=== PATIENT | female | born 1965 | race Caucasian/White ===

== ENCOUNTER → 2016-11-08 | Outpatient (CLI) | payer OTHER ==
[~2016-11-08] MED LIST: ACHD5005 PO; CARV3.12T PO; DIAZ5TAB3 PO; DOCU100T7 PO; ENAL2.5T PO; ENOX40DI8 SC; GADOBUTROL 10 MMOL/10 ML (GADAVIST) VIAL IV ONE; HYDR-3816 PO; HYDR1TAB86 PO; IBUP-1773 PO; MAGN250T7 PO; ONDN4T PO; OXYC-309 PO; SCP1.5TD TD; TAMO20TA2 PO; VENL75CA PO
--- OUTSIDE RECORDS SUMMARY | 2016-11-08 16:39 | XMS REPORT | Continuity of Care Document ---
Author Author [facility] Organization [facility] Address Unknown Phone Unavailable Care Team Providers Care Rfid Developer Name Role Phone Vince Laila PCP [phone] Source Comments Some departments are not documenting in the electronic medical record. 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 08/14/2016 Surgery Aura John MD RECONSTRUCTION [...] Taken Blood Pressure 143/82 09/21/2016 11:50 AM FREIGHT AND PASSENGER AGENT Pulse 96 09/21/2016 11:50 AM FREIGHT AND PASSENGER AGENT Temperature 35.6 C (96 F) 08/27/2016 10:06 AM CDT Respiratory Rate 16 08/27/2016 10:06 AM CDT Height 1.626 m (5' 4") 09/21/2016 11:50 AM FREIGHT AND PASSENGER AGENT Weight 102.059 kg (225 lb) 09/21/2016 11:50 AM FREIGHT AND PASSENGER AGENT Body Mass Index 38.6 09/21/2016 11:50 AM FREIGHT AND PASSENGER AGENT Oxygen Saturation 97% 08/14/2016 5:00 PM CDT Plan of Care Date Type Specialty Providers Description 11/22/2016 Appointment Plastic Surgery Aura John MD [address] [place] [address] [phone] (Fax) 01/29/2017 Appointment Radiology Lincoln Grande MD [address] [place] [address] [phone] (Fax) 01/29/2017 Appointment Oncology Kimber Portillo PA-C [address] [place] [address] [phone] (Fax) Health Maintenance Due Date Last Done [...] AM) Component Value Range PATHOLOGY REPORT [facility] [email or web address] Lucrecia Milner MD, PhD, Director of Anatomic Pathology Department of Pathology and Laboratory Medicine [address] [place] [id number] Surgical Pathology Office: [phone] SURGICAL PATHOLOGY REPORT NAME: PITER TAYLOR SURG PATH #: [id number] MR #: [id number] SPECIMEN CLASS: SR BILLING #: [id number] ALT ID #: LOCATION: [facility] DATE OF [...] discrete lesions or gross abnormalities are identified. Company Dancer sections are submitted in cassette A1 and [...] discrete lesions or gross abnormalities are identified. Company Dancer sections are submitted in cassette B1 and B2. (arl) ar/08/15/2016
--- NOTE | 2016-11-08 17:48 | Diagnostic Imaging Report ---
PROCEDURE: MR imaging of the brain with and without contrast. TECHNIQUE: Multiplanar, multisequence MR imaging of the brain was performed with and without contrast. INDICATION: Headaches COMPARISON: None FINDINGS: There is no restricted diffusion or abnormal enhancement. The jones-white junction appears preserved. The ventricles appear unremarkable. There is no evidence of acute intracranial hemorrhage, mass effect or midline shift. No acute focal intraparenchymal abnormality is seen. There are a few very subtle tiny foci of T2 and FLAIR signal abnormality in the periventricular and subcortical white matter which are nonspecific but are probably related to chronic microvascular ischemic changes. The paranasal sinuses and mastoids are clear as visualized. IMPRESSION: There is no evidence of an acute intracranial abnormality. There are minimal white matter changes which appear chronic and are most likely related to microvascular ischemic disease although they are nonspecific. Dictated by: Dictated on workstation # [id number]
== END ==
LOC: RAD 16:36
PROVIDERS: ATTEND Internal Medicine Hematology & Oncology
DX: R51 Headache (principal); C50.919 Malignant neoplasm of unspecified site of unspecified female breast
CPT/HCPCS: 70553

== ENCOUNTER → 2016-11-15 | Outpatient (CLI) | payer OTHER ==
[~2016-11-15] MED LIST changes: -GADOBUTROL 10 MMOL/10 ML (GADAVIST) VIAL IV ONE
--- OUTSIDE RECORDS SUMMARY | 2016-11-15 11:48 | XMS REPORT | Continuity of Care Document ---
Author Author [facility] Organization [facility] Address Unknown Phone Unavailable Care Team Providers Care Auxiliary Equipment Tender Name Role Phone Vince Laila PCP [phone] Source Comments Some departments are not documenting in the electronic medical record. If you do not see the information that you expected, contact Release of Information in the Health Information Management department at [phone] for further assistance in locating additional records.[facility] Active Allergies and Adverse Reactions No [...] Providers Description 09/21/2016 Office Visit Plastic Surgery Eder Stephen MD Bartolo reconstructed breast (Primary Dx) 08/27/2016 Office Visit Plastic Surgery Eder Stephen MD Bartolo reconstructed breast (Primary Dx); Malignant neoplasm of left female breast, unspecified site of breast (HCC) Immunizations Name Dates Previously Given Next Due Pneumococcal Vaccine 12/06/2015 (23-Kim Adult) Social History Tobacco Use Types Packs/Day Years Used Date Passive Smoke Exposure - Never Smoker Smokeless Tobacco: Never Used Alcohol Use Drinks/Week oz/Week Comments Yes 1 Standard 0.5 rarely drinks or equivalent Last Filed Vital Signs Vital Sign Reading Time Taken Blood Pressure 143/82 09/21/2016 11:50 AM SOLID STATE TESTER Pulse 96 09/21/2016 11:50 AM SOLID STATE TESTER Temperature 35.6 C (96 F) 08/27/2016 10:06 AM CDT Respiratory Rate 16 08/27/2016 10:06 AM CDT Height 1.626 m (5' 4") 09/21/2016 11:50 AM SOLID STATE TESTER Weight 102.059 kg (225 lb) 09/21/2016 11:50 AM SOLID STATE TESTER Body Mass Index 38.6 09/21/2016 11:50 AM SOLID STATE TESTER Oxygen Saturation 97% 08/14/2016 5:00 PM CDT Plan of Care Date Type Specialty Providers Description 11/22/2016 Appointment Plastic Surgery Eder Stephen MD [address] [place] [address] [phone] (Fax) 01/29/2017 Appointment Radiology Lincoln Grande MD [address] [place] [address] [phone] (Fax) 01/29/2017 Appointment Oncology Kimber Portillo PA-C [address] [place] [address] [phone] (Fax) Health Maintenance Due Date Last Done [...] CDT procedure are in the results section. Results from Last 3 Months PROCEDURES-SCAN (08/15/2016 10:54 AM) Narrative Ordered by an unspecified provider.
--- NOTE | 2016-11-15 17:55 | Diagnostic Imaging Report ---
INDICATION: Breast cancer. Whole body bone scan. 27.3 mCi of technetium-99m MDP was given intravenously. Whole body bone scan was obtained after appropriate delay. FINDINGS: There is some increased activity in the left anterior rib cage involving the seventh and eighth ribs at the costochondral junction. This is likely related to trauma. There is slight increased activity in the right patella which is likely degenerative in nature. There is no abnormal uptake seen in the skeleton that is considered suspicious for metastatic disease. IMPRESSION: No evidence for metastatic disease in the skeleton. Left anterior rib activity likely due to trauma. Clinical correlation recommended. Dictated by: Dictated on workstation # [id number]
== END ==
LOC: CARD 11:44
PROVIDERS: ATTEND Internal Medicine Hematology & Oncology
DX: C50.919 Malignant neoplasm of unspecified site of unspecified female breast (principal); M89.8X9 Other specified disorders of bone, unspecified site
CPT/HCPCS: 78306

== ENCOUNTER 2016-11-22 08:51 | Outpatient (RCR) | payer BC, OTHER ==
[2016-11-07 09:20] LABS: BASOPHILS % (AUTO) 0 % (0-10); EOSINOPHILS # (AUTO) 0.2 10^3/uL (0.0-0.3); EOSINOPHILS % (AUTO) 4 % (0-10); LYMPHOCYTES # (AUTO) 1.5 X 10^3 (1.0-4.0); LYMPHOCYTES % (AUTO) 35 % (12-44); MEAN CORPUSCULAR HEMOGLOBIN 29 PG (25-34); MEAN CORPUSCULAR HGB CONC 32 G/DL (32-36); MEAN CORPUSCULAR VOLUME 93 FL (80-99); MEAN PLATELET VOLUME 9.3 FL (7.4-10.4); MONOCYTES # (AUTO) 0.3 X 10^3 (0.0-1.0); MONOCYTES % (AUTO) 7 % (0-12); NEUTROPHILS # (AUTO) 2.4 X 10^3 (1.8-7.8); NEUTROPHILS % (AUTO) 55 % (42-75); PLATELET COUNT 254 10^3/uL (130-400); RED BLOOD COUNT 3.88 10^6/uL (4.35-5.85); RED CELL DISTRIBUTION WIDTH 13.8 % (10.0-14.5); WHITE BLOOD COUNT 4.3 10^3/uL (4.3-11.0)
[2016-11-07 09:51] LABS: ALBUMIN 3.8 G/DL (3.2-4.5); BILIRUBIN,TOTAL 0.3 MG/DL (0.1-1.0); CALCIUM 8.9 MG/DL (8.5-10.1); CREATININE SERUM 1.06 MG/DL (0.60-1.30); POTASSIUM 4.3 MMOL/L (3.6-5.0); TOTAL PROTEIN 6.7 G/DL (6.4-8.2)
--- OUTSIDE RECORDS SUMMARY | 2016-11-07 10:18 | XMS REPORT | Continuity of Care Document ---
Author Author [facility] Organization [facility] Address Unknown Phone Unavailable Care Team Providers Care Biofuels Product Manager Name Role Phone Vince Laila PCP [phone] Source Comments Some departments are not documenting in the electronic medical record. If you do not see the information that you expected, contact Release of Information in the Health Information Management department at [phone] for further assistance in locating additional records.[facility] Active Allergies and Adverse Reactions No Known Allergies Current Medications Prescription Sig. Disp. Refills Start End Date Status Date acetaminophen (TYLENOL) Take 325 mg by mouth Active 325 mg tablet every 4 hours as needed. carvedilol (COREG) 3.125 Take 3.125 mg by mouth Active mg tablet twice daily with meals. enalapril (VASOTEC) 2.5 Take 2.5 mg by mouth at Active mg tablet bedtime daily. venlafaxine XR (EFFEXOR Take 75 mg by mouth at Active XR) 75 mg capsule bedtime daily. letrozole (FEMARA) 2.5 mg Take 2.5 mg by mouth at Active tablet bedtime daily. ondansetron (ZOFRAN) 8 mg Take 8 mg by mouth every Active tablet 8 hours as needed for Nausea. docusate (COLACE) 100 mg Take 100 mg by mouth as Active capsule Needed. senna/docusate Take 1 Tab by mouth twice 14 Tab 0 12/06/19 Active (SENOKOT-S) 8.6/50 mg daily. Indications: 16 tablet CONSTIPATION HYDROcodone/acetaminophen Take 1 Tab by mouth every 30 Tab 0 08/14/20 Active (NORCO) 5-325 mg tablet 4 hours as needed for 16 Pain Active Problems Problem Noted Date Misshapen reconstructed breast 01/29/2016 Morbid obesity (HCC) 12/12/2015 S/P breast reconstruction, bilateral 12/01/2015 Rotator cuff (capsule) sprain 09/28/2014 Breast cancer (HCC) 06/22/2014 Most Recent Encounters Date Type Specialty Providers Description 09/21/2016 Office Visit Plastic Surgery Aura John MD Bartolo reconstructed breast (Primary Dx) 08/27/2016 Office Visit Plastic Surgery Aura John MD Bartolo reconstructed breast (Primary Dx); Malignant neoplasm of left female breast, unspecified site of breast (HCC) 08/14/2016 Anesthesia Leia Licona FLUID JET CUTTER OPERATOR Event 08/14/2016 Surgery Aura John MD RECONSTRUCTION BREAST REVISION TO RIGHT BREAST, EXCISION AND LIPOSUCTION Immunizations Name Dates Previously Given Next Due Pneumococcal Vaccine 12/06/2015 (23-Kim Adult) Social History Tobacco Use Types Packs/Day Years Used Date Passive Smoke Exposure - Never Smoker Smokeless Tobacco: Never Used Alcohol Use Drinks/Week oz/Week Comments Yes 1 Standard 0.5 rarely drinks or equivalent Last Filed Vital Signs Vital Sign Reading Time Taken Blood Pressure 143/82 09/21/2016 11:50 AM SOAP CHIPPER Pulse 96 09/21/2016 11:50 AM SOAP CHIPPER Temperature 35.6 C (96 F) 08/27/2016 10:06 AM CDT Respiratory Rate 16 08/27/2016 10:06 AM CDT Height 1.626 m (5' 4") 09/21/2016 11:50 AM SOAP CHIPPER Weight 102.059 kg (225 lb) 09/21/2016 11:50 AM SOAP CHIPPER Body Mass Index 38.6 09/21/2016 11:50 AM SOAP CHIPPER Oxygen Saturation 97% 08/14/2016 5:00 PM CDT Plan of Care Date Type Specialty Providers Description 11/22/2016 Appointment Plastic Surgery Aura John MD [address] [place] [address] [phone] (Fax) 01/29/2017 Appointment Radiology Lincoln Grande MD [address] [place] [address] [phone] (Fax) 01/29/2017 Appointment Oncology Kimber Portillo PA-C [address] [place] [address] [phone] (Fax) Health Maintenance Due Date Last Done Comments Hepatitis C Screening 1964 Physical (Comprehensive) 1971 Exam Pertussis Vaccine 1975 Tetanus Vaccine 1981 Cervical Cancer Screening 1985 Colorectal Cancer 2014 Screening Influenza Vaccine 07/05/2016 Breast Cancer Screening 01/25/2018 01/26/2016, 01/27/2015 Procedures from Last 3 Months Procedure Name Priority Date/Time Associated Diagnosis Comments PROCEDURES-SCAN 08/15/2016 Results for this 10:54 AM CDT procedure are in the results section. RECONSTRUCTION BREAST 08/14/2016 Breast cancer (HCC) REVISION TO RIGHT BREAST, 1:10 PM CDT EXCISION AND LIPOSUCTION Results from Last 3 Months PROCEDURES-SCAN (08/15/2016 10:54 AM) Narrative Ordered by an unspecified provider. SURGICAL PATHOLOGY (08/14/2016 7:45 AM) Component Value Range PATHOLOGY REPORT [facility] [email or web address] Lucrecia Milner MD, PhD, Director of Anatomic Pathology Department of Pathology and Laboratory Medicine [address] [place] [phone] Surgical Pathology Office: [phone] SURGICAL PATHOLOGY REPORT NAME: PITER TAYLOR SURG PATH #: [id number] MR #: [id number] SPECIMEN CLASS: SR BILLING #: [id number] ALT ID #: LOCATION: [facility] DATE OF PROCEDURE: 08/14/2016 AGE: 50 SEX: F DATE RECEIVED: 08/15/2016 : 1965 TIME RECEIVED: 07:45 PHYSICIAN: AURA JOHN MD DATE OF REPORT: 08/16/2016 COPY TO: DATE OF PRINTIN08/16/2016 ################################################## ###################### Final Diagnosis: A. Skin and subcutaneous tissue, "left breast tissue", revision: Focal mild acute and chronic inflammation. B. Skin and subcutaneous tissue, "right breast tissue", revision: No diagnostic abnormalities. Attestation: By this signature, I attest that I have personally formulated the final interpretation expressed in this report and that the above diagnosis is based upon my examination of the slides and/or other material indicated in this report. +++Electronically Signed Out By+++ dimitrios/08/15/2016 Interpreted by: Galilea Van M.D. 08/16/2016 ################################################## ###################### Material Received: A: left breast tissue B: right breast tissue History: 50-year-old female with a history of breast cancer, now reconstruction. Gross Description: A. Received in formalin labeled with the patient's name and "left breast tissue" is an unoriented elliptical portion of fibrofatty tissue measuring 6.5 x 2.5 x 1.5 cm, surfaced with an unremarkable elliptical portion of matamoros-white skin measuring 6.5 x 2.5 cm. The specimen is sectioned to reveal grossly unremarkable lobulated adipose tissue. No definitive breast tissue, discrete lesions or gross abnormalities are identified. Clicking Machine Operator sections are submitted in cassette A1 and A2. (arl) B. Received in formalin labeled with the patient's name and "right breast tissue" are two unoriented elliptical portion of fibrofatty tissue surfaced with skin measuring 3.5 x 1.7 x 1.5 cm and 5.8 x 2.6 x 1.4 cm. The specimen is sectioned to reveal grossly unremarkable lobulated adipose tissue. No definitive breast tissue, discrete lesions or gross abnormalities are identified. Clicking Machine Operator sections are submitted in cassette B1 and B2. (arl) ar/08/15/2016
== END 2017-02-05 | disposition home or self-care (01) ==
LOC: ONC 08:51
PROVIDERS: ATTEND Internal Medicine Hematology & Oncology
DX: C50.412 Malignant neoplasm of upper-outer quadrant of left female breast (principal); Z17.0 Estrogen receptor positive status [ER+]; Z79.899 Other long term (current) drug therapy
CPT/HCPCS: 36415; 80053; 83615; 85025; 99213

== ENCOUNTER 2016-12-10 07:56 | Outpatient (RCR) | payer OTHER ==
--- OUTSIDE RECORDS SUMMARY | 2016-12-10 08:00 | XMS REPORT | Continuity of Care Document ---
Author Author [facility] Organization [facility] Address Unknown Phone Unavailable Care Team Providers Care Mattress Specialist Name Role Phone Vince Laila PCP [phone] Source Comments Some departments are not documenting in the electronic medical record. If you do not see the information that you expected, contact Release of Information in the Health Information Management department at [phone] for further assistance in locating additional records.[facility] Active Allergies and Adverse Reactions [...] Stephen MD Bartolo reconstructed breast (Primary Dx) Immunizations Name Dates Previously Given Next Due Pneumococcal Vaccine 12/06/2015 (23-Kim Adult) Social History Tobacco Use Types Packs/Day Years Used Date Passive Smoke Exposure - Never Smoker Smokeless Tobacco: Never Used Alcohol Use Drinks/Week oz/Week Comments Yes 1 Standard 0.5 rarely drinks or equivalent Last Filed Vital Signs Vital Sign Reading Time Taken Blood Pressure 143/82 09/21/2016 11:50 AM CAREGIVER ASSISTED LIVING Pulse 96 09/21/2016 11:50 AM CAREGIVER ASSISTED LIVING Temperature 35.6 C (96 F) 08/27/2016 10:06 AM CDT Respiratory Rate 16 08/27/2016 10:06 AM CDT Height 1.626 m (5' 4") 09/21/2016 11:50 AM CAREGIVER ASSISTED LIVING Weight 102.059 kg (225 lb) 09/21/2016 11:50 AM CAREGIVER ASSISTED LIVING Body Mass Index 38.6 09/21/2016 11:50 AM CAREGIVER ASSISTED LIVING Oxygen Saturation 97% 08/14/2016 5:00 PM CDT Plan of Care Date Type Specialty Providers Description 01/29/2017 Appointment Radiology Lincoln Grande MD [address] [place] [address] [phone] (Fax) 01/29/2017 Appointment Oncology Kimber Portillo PA-C [address] [place] [address] [phone] (Fax) Health Maintenance Due Date Last Done Comments Hepatitis C Screening 1964 Physical (Comprehensive) 1971 Exam Pertussis Vaccine 1975 Tetanus Vaccine 1981 Cervical Cancer Screening 1985 Colorectal Cancer 2014 Screening Influenza Vaccine 07/05/2016 Breast Cancer Screening 01/25/2018 01/26/2016, 01/27/2015 Results from Last 3 Months Not on file
== END 2017-03-10 | disposition home or self-care (01) ==
LOC: CARD 07:56
PROVIDERS: ATTEND Physician Assistant
DX: I25.10 Atherosclerotic heart disease of native coronary artery without angina pectoris (principal); I50.22 Chronic systolic (congestive) heart failure; E78.2 Mixed hyperlipidemia; K21.9 Gastro-esophageal reflux disease without esophagitis
CPT/HCPCS: 93225; 93226

== ENCOUNTER → 2016-12-12 | Outpatient (CLI) | payer OTHER ==
--- OUTSIDE RECORDS SUMMARY | 2016-12-12 08:50 | XMS REPORT | Continuity of Care Document ---
Author Author [facility] Organization [facility] Address Unknown Phone Unavailable Care Team Providers Care Donor Relations Manager Name Role Phone Vince Laila PCP [phone] Source Comments Some departments are not documenting in the electronic medical record. If you do not see the information that you expected, contact Release of Information in the Health Information Management department at [phone] for further assistance in locating additional records.[facility] Active Allergies and Adverse Reactions [...] Taken Blood Pressure 143/82 09/21/2016 11:50 AM STOCK ORDER LISTER Pulse 96 09/21/2016 11:50 AM STOCK ORDER LISTER Temperature 35.6 C (96 F) 08/27/2016 10:06 AM CDT Respiratory Rate 16 08/27/2016 10:06 AM CDT Height 1.626 m (5' 4") 09/21/2016 11:50 AM STOCK ORDER LISTER Weight 102.059 kg (225 lb) 09/21/2016 11:50 AM STOCK ORDER LISTER Body Mass Index 38.6 09/21/2016 11:50 AM STOCK ORDER LISTER Oxygen Saturation 97% 08/14/2016 5:00 PM CDT Plan of Care Date Type Specialty Providers Description 01/29/2017 Appointment Radiology Lincoln Grande MD [address] [place] [address] [phone] (Fax) 01/29/2017 Appointment Oncology Kimber Portillo PA-C [address] [place] [address] [phone] (Fax) Health Maintenance Due Date Last Done Comments Hepatitis C Screening 1964 Physical (Comprehensive) 1971 Exam Pertussis Vaccine 1975 Tetanus Vaccine 1981 Cervical Cancer Screening 1985 Colorectal Cancer 2014 Screening Influenza Vaccine 07/05/2016 Breast Cancer Screening 01/25/2018 01/26/2016, 01/27/2015 Results from Last 3 Months Not on file
--- NOTE | 2016-12-13 09:06 | ECHOCARDIOGRAPHY REPORT ---
PROCEDURE PHYSICIAN: ADILENE PANDYA DATE OF PROCEDURE: 12/12/2016 TWO DIMENSIONAL ECHOCARDIOGRAM REPORT PRIMARY PHYSICIAN: OTHER PHYSICIAN: REFERRING PHYSICIAN: Dr. Laila Clarke ORDERING PHYSICIAN: INDICATION FOR THE PROCEDURE: 1. Congestive heart failure. 2. Coronary artery disease. MEASUREMENTS DERIVED VALUES LV DIAMETER (LAX) NORMALS NORMALS Diastolic 3.9 (3.6-5.2) Eject. Fract. 40% (60%+/-6%) Systolic (2.3-3.9) Diastolic Vol. % Shortening (0.22-0.42) Systolic Vol. Aortic Root IVS THICKNESS Diastolic 1 (0.6-1.1) LVPW THICKNESS Diastolic 1 (0.6-1.1) LA DIAMETER Systolic 3 (2.1-3.7) FINDINGS: 1. Technically difficult study. 2. The left ventricle is normal in size. Endocardium was not well visualized in all segments. Questionable diffuse left ventricular hypokinesia. Systolic function is reduced. Estimated ejection fraction 40%. Diastolic dysfunction is suggested by Doppler. 3. The left atrium is normal in size. No clot or thrombus were seen within the left atrium. 4. The right atrium and right ventricle were not well visualized. 5. Mitral valve leaflets were not well visualized. There is mild mitral regurgitation noted by color Doppler flow. No mitral valve prolapse. No mitral valve stenosis. 6. Aortic valve leaflets were not visualized. No significant aortic stenosis or regurgitation was seen. 7. Tricuspid valve is normal in morphology with mild tricuspid regurgitation noted by color Doppler flow. Doppler across tricuspid valve estimated pulmonary artery pressure of 10+ right atrial pressure. 8. Pulmonic valve is functioning normally. 9. No pericardial effusion. IN CONCLUSION: 1. Technically difficult study. 2. Normal left ventricular size. Endocardium was not well visualized. Overall systolic function is reduced. Estimated ejection fraction 40%. Diastolic dysfunction is suggested by Doppler. 3. Mild mitral and tricuspid regurgitation. 4. Estimated pulmonary artery pressure of 15 to 20 mmHg. Job ID: [id number] Dictated Date: 12/12/2016 16:50:15 Food Service Tray Attendant Date: 12/13/2016 09:03:19 / jaguar
== END ==
LOC: CARD 08:46
PROVIDERS: ATTEND Physician Assistant
DX: I25.10 Atherosclerotic heart disease of native coronary artery without angina pectoris (principal); I50.22 Chronic systolic (congestive) heart failure; E78.2 Mixed hyperlipidemia; K21.9 Gastro-esophageal reflux disease without esophagitis
CPT/HCPCS: 93017; 93306

== ENCOUNTER 2017-12-27 13:30 | Outpatient (RCR) | payer OTHER ==
[~2017-12-27 13:30] MED LIST changes: +HYDR-34 PO; -HYDR-3816 PO
[2017-12-27 13:49] LABS: BASOPHILS % (AUTO) 0 % (0-10); EOSINOPHILS # (AUTO) 0.2 10^3/uL (0.0-0.3); EOSINOPHILS % (AUTO) 3 % (0-10); HEMATOCRIT 39 % (35-52); HEMOGLOBIN 12.6 G/DL (11.5-16.0); LYMPHOCYTES # (AUTO) 1.9 X 10^3 (1.0-4.0); LYMPHOCYTES % (AUTO) 24 % (12-44); MEAN CORPUSCULAR HEMOGLOBIN 30 PG (25-34); MEAN CORPUSCULAR HGB CONC 32 G/DL (32-36); MEAN CORPUSCULAR VOLUME 93 FL (80-99); MEAN PLATELET VOLUME 9.4 FL (7.4-10.4); MONOCYTES # (AUTO) 0.4 X 10^3 (0.0-1.0); MONOCYTES % (AUTO) 4 % (0-12); NEUTROPHILS # (AUTO) 5.4 X 10^3 (1.8-7.8); NEUTROPHILS % (AUTO) 68 % (42-75); PLATELET COUNT 283 10^3/uL (130-400); RED BLOOD COUNT 4.25 10^6/uL (4.35-5.85); RED CELL DISTRIBUTION WIDTH 13.8 % (10.0-14.5)
[2017-12-27 14:09] LABS: ALANINE AMINOTRANSFERASE 9 U/L (0-55); ALKALINE PHOSPHATASE 140 U/L (40-136); BILIRUBIN,TOTAL 0.3 MG/DL (0.1-1.0); BUN/CREATININE RATIO 13; CALCIUM 9.7 MG/DL (8.5-10.1); CARBON DIOXIDE 28 MMOL/L (21-32); CHLORIDE 105 MMOL/L (98-107); CREATININE SERUM 0.92 MG/DL (0.60-1.30); GFR ESTIMATED > 60; GLUCOSE 87 MG/DL (70-105); SODIUM 141 MMOL/L (135-145); TOTAL PROTEIN 7.3 GM/DL (6.4-8.2)
== END 2018-03-27 16:35 | disposition home or self-care (01) ==
LOC: ONC 13:30
PROVIDERS: ATTEND Internal Medicine Hematology & Oncology
DX: C50.412 Malignant neoplasm of upper-outer quadrant of left female breast (principal); C77.3 Secondary and unspecified malignant neoplasm of axilla and upper limb lymph nodes; D72.819 Decreased white blood cell count, unspecified; I50.89 Other heart failure; T45.1X5A Adverse effect of antineoplastic and immunosuppressive drugs, initial encounter; M19.012 Primary osteoarthritis, left shoulder; M25.552 Pain in left hip; R51 Headache; R53.83 Other fatigue; R11.2 Nausea with vomiting, unspecified; E66.01 Morbid (severe) obesity due to excess calories; Z68.41 Body mass index [BMI] 40.0-44.9, adult; Z17.0 Estrogen receptor positive status [ER+]; Z79.899 Other long term (current) drug therapy; Z79.811 Long term (current) use of aromatase inhibitors; Z90.11 Acquired absence of right breast and nipple; Z90.13 Acquired absence of bilateral breasts and nipples; Z92.21 Personal history of antineoplastic chemotherapy; Z92.3 Personal history of irradiation
CPT/HCPCS: 36415; 80053; 85025; 99213

== ENCOUNTER → 2018-01-16 | Outpatient (CLI) | payer OTHER ==
--- NOTE | 2018-01-16 12:54 | Diagnostic Imaging Report ---
Procedure: DEXA scan Comparison: There are no prior studies available for comparison. Findings: The bone mineral density of the hips and spine was measured. The T score for the spine and for the left hip is -1.9. The T score for the right hip is -2.2. All of these values fall within the range of osteopenia. Impression: There is osteopenia of the hips and spine. Dictated by: Dictated on workstation # [id number]
== END ==
LOC: RAD 11:12
PROVIDERS: ATTEND Internal Medicine Hematology & Oncology
DX: C50.412 Malignant neoplasm of upper-outer quadrant of left female breast (principal); M85.88 Other specified disorders of bone density and structure, other site
CPT/HCPCS: 77080

== ENCOUNTER 2018-04-03 16:36 | Observation (INO) | payer OTHER ==
[~2018-04-03] VITALS: Ht 162.6 cm; Wt 109.1 kg
[2018-04-03] MEDS ORDERED: ASPIRIN 81 MG CHEW (CHILDREN'S ASA) PO ONE (16:45)
--- NOTE | 2018-04-03 16:46 | ED Chest Pain ---
General Stated Complaint: CHEST HEAVINESS/SOB/HEADACHE Source: patient Exam Limitations: no limitations History of Present Illness Date Seen by Provider: April 03, 2018 Time Seen by Provider: 16:45 Initial Comments to ERper private vehicle from home with reports of central chest heaviness. This has been constant since Saturday 03/24. However she's had intermittent palpitations and nausea with this. She reports a history of congestive heart failure that occurred with chemotherapy for treatment of breast cancer She does follow with Dr. Crump. Primary care is Dr. Scott. Timing/Duration: constant Severity/Quality: moderate, other ("heaviness") Location: central Radiation: no radiation Activities at Onset: none Prior CP/Workup: cardiac cath ASA po BARREL FINISHER: No NTG SL BARREL FINISHER: No Associated Symptoms: nausea/vomiting Allergies and Home Medications Allergies Coded Allergies: codeine (Verified Allergy, Mild, UPSET STOMACH, 08/12/15) Home Medications Carvedilol 3.125 Mg Tablet, 3.125 MG PO BID, (Reported) Docusate Sodium 100 Mg Tablet, 200 MG PO DAILY PRN for CONSTIPATION, (Reported) Enalapril Maleate 2.5 Mg Tablet, 2.5 MG PO HS, (Reported) Enoxaparin Sodium 40 Mg/0.4 Ml Syringe, 40 MG SC DAILY@06 Prescribed by: NACHO HARRIS on 08/18/15 1201 Hydrocodone Bit/Acetaminophen 1 Each Tablet, 1-2 EA PO Q6H PRN for PAIN Prescribed by: NACHO HARRIS on 08/18/15 1201 Ibuprofen 600 Mg Tablet, 600 MG PO Q6H PRN for PAIN Prescribed by: NACHO HARRIS on 08/18/15 1201 Ondansetron HCl 4 Mg Tab, 4 MG PO PRN, (Reported) Tamoxifen Citrate 20 Mg Tablet, 20 MG PO DAILY, (Reported) Venlafaxine HCl 75 Mg Cap.er.24h, 75 MG PO DAILY, (Reported) Patient Home Medication List Home Medication List Reviewed: Yes Review of Systems Constitutional: see HPI EENTM: No Symptoms Reported Respiratory: No Symptoms Reported Cardiovascular: See HPI, Chest Pain, Palpitations Gastrointestinal: See HPI Genitourinary: No Symptoms Reported Musculoskeletal: no symptoms reported Skin: no symptoms reported Psychiatric/Neurological: No Symptoms Reported Endocrine: No Symptoms Reported Hematologic/Lymphatic: No Symptoms Reported Past Vzpdtqt-Vdguoy-Cgzukq Hx Patient Social History Recent Foreign Travel: No Contact w/Someone Who Travel: No Past Medical History Reproductive Disorders: No Female Reproductive Disorders: Denies Sexually Transmitted Disease: No HIV/AIDS: No Loss of Vision: Bilateral Hearing Impairment: Denies Breast Depression Adverse Reaction/Blood Tranf: No Physical Exam Vital Signs Vital Signs - First Documented 04/03/18 16:38 Temp 98.0 Pulse 76 Resp 18 B/P (MAP) 151/86 (107) Pulse Ox 99 Capillary Refill : General Appearance: No Apparent Distress, WD/WN HEENT: PERRL/EOMI, TMs Normal Neck: Full Range of Motion, Normal Inspection Respiratory: No Accessory Muscle Use, No Respiratory Distress Cardiovascular: Regular Rate, Rhythm, Normal Peripheral Pulses Gastrointestinal: Normal Bowel Sounds, Non Tender, Soft Extremity: Normal Capillary Refill, Normal Inspection Neurologic/Psychiatric: Alert, Oriented x3 Skin: Normal Color, Warm/Dry Progress/Results/Core Measures Results/Orders Lab Results Laboratory Tests Test 04/03/18 16:49 Range/Units White Blood Count 5.5 4.3-11.0 10^3/uL Red Blood Count 4.22 L 4.35-5.85 10^6/uL Hemoglobin 12.8 11.5-16.0 G/DL Hematocrit 38 35-52 % Mean Corpuscular Volume 91 80-99 FL Mean Corpuscular Hemoglobin 30 25-34 PG Mean Corpuscular Hemoglobin Concent 34 32-36 G/DL Red Cell Distribution Width 14.3 10.0-14.5 % Platelet Count 266 130-400 10^3/uL Mean Platelet Volume 9.8 7.4-10.4 FL Neutrophils (%) (Auto) 57 42-75 % Lymphocytes (%) (Auto) 36 12-44 % Monocytes (%) (Auto) 6 0-12 % Eosinophils (%) (Auto) 2 0-10 % Basophils (%) (Auto) 0 0-10 % Neutrophils # (Auto) 3.1 1.8-7.8 X 10^3 Lymphocytes # (Auto) 2.0 1.0-4.0 X 10^3 Monocytes # (Auto) 0.3 0.0-1.0 X 10^3 Eosinophils # (Auto) 0.1 0.0-0.3 10^3/uL Basophils # (Auto) 0.0 0.0-0.1 10^3/uL Prothrombin Time 12.8 12.2-14.7 SEC INR Comment 1.0 0.8-1.4 Activated Partial Thromboplast Time 26 24-35 SEC D-Dimer 0.49 0.00-0.49 UG/ML Sodium Level 138 135-145 MMOL/L Potassium Level 3.8 3.6-5.0 MMOL/L Chloride Level 106 98-107 MMOL/L Carbon Dioxide Level 22 21-32 MMOL/L Anion Gap 10 5-14 MMOL/L Blood Urea Nitrogen 10 7-18 MG/DL Creatinine 0.84 0.60-1.30 MG/DL Estimat Glomerular Filtration Rate > 60 BUN/Creatinine Ratio 12 Glucose Level 89 70-105 MG/DL Calcium Level 9.3 8.5-10.1 MG/DL Magnesium Level 2.0 1.8-2.4 MG/DL Total Bilirubin 0.3 0.1-1.0 MG/DL Aspartate Amino Transf (AST/SGOT) 16 5-34 U/L Alanine Aminotransferase (ALT/SGPT) 13 0-55 U/L Alkaline Phosphatase 112 40-136 U/L Myoglobin 30.1 10.0-92.0 NG/ML Troponin I < 0.30 <0.30 NG/ML B-Type Natriuretic Peptide 81.3 <100.0 PG/ML Total Protein 7.5 6.4-8.2 GM/DL Albumin 4.2 3.2-4.5 GM/DL My Orders Orders - ANGELA BRANTLEY [employer]ACTITIONER Cbc With Automated Diff (04/03/18 16:43) Magnesium (04/03/18 16:43) Chest 1 View, Ap/Pa Only (04/03/18 16:43) Cardiac Profile 1 (04/03/18 16:43) Comprehensive Metabolic Panel (04/03/18 16:43) Myoglobin Serum (04/03/18 16:43) Protime With Inr (04/03/18 16:43) Partial Thromboplastin Time (04/03/18 16:43) O2 (04/03/18 16:43) Monitor-Rhythm Ecg Trace Only (04/03/18 16:43) Lipid Panel (04/04/18 06:00) Aspirin Chewable Tablet (Baby Aspirin Ch (04/03/18 16:45) Nitroglycerin 0.4 Mg Btl 25's (Nitrostat (04/03/18 16:45) Saline Lock/Iv-Start (04/03/18 16:43) BNP (04/03/18 16:43) Fibrin Degradation Products (04/03/18 16:43) Ekg Tracing (04/03/18 17:50) Medications Given in ED Current Medications Medications Dose Ordered Sig/Becca Route Start Time Stop Time Status Last Admin Dose Admin Aspirin 324 mg ONCE ONCE PO 04/03/18 16:45 04/03/18 16:46 DC 04/03/18 17:03 324 MG Nitroglycerin 0.4 mg UD PRN SL 04/03/18 16:45 04/03/18 17:22 DC 04/03/18 17:22 0.4 MG Vital Signs/I&O 04/03/18 16:38 Temp 98.0 Pulse 76 Resp 18 B/P (MAP) 151/86 (107) Pulse Ox 99 Diagnostic Imaging Diagonstic Imaging: Xray Plain Films/CT/US/NM/MRI: chest Comments NAME: VASYL SCHAFER [facility] REC#: [id number] PT STATUS: REG ER : 1965 PHYSICIAN: ANGELA BRANTLEY APRN ADMIT DATE: 04/03/18/ER Draft Date of Exam:04/03/18 CHEST 1 VIEW, AP/PA ONLY Portable erect AP chest at 4:58 p.m. INDICATION: Chest tightness. FINDINGS: The heart size is within normal limits and stable when compared to 01/24/16. The lungs are clear. There is no sign of failure, pneumonia or pleural effusion to suggest an acute abnormality. The mediastinum is not widened. The osseous structures are intact. As noted on the prior exam, there are numerous surgical clips overlying each side of the thorax. IMPRESSION: There is no evidence for an acute cardiopulmonary abnormality. Dictated on workstation # [id number] Dict: 04/03/18 1703 Trans: 04/03/18 1707 MARTI [id number] Interpreted by: LESLIE EDMOND MD Electronically signed by: Departure Communication (Admissions) Time/Spoke to Admitting Phy: 18:[address] Crump.he would recommend admission and further observation. I spoke with Dr. Cotton, she agrees to admit, Dr. Crump will consult. 750-she has received 3 sublingual nitroglycerin. The first tube did seem to help alleviate the pressure and the thirdook it away completely. She states that the pressure is still there but it is intermittent at this time. This very moment she does not have any chest pressure. Our repeat an EKG until Dr. Crump. Impression Primary Impression: Chest pain Disposition: ADMITTED INPATIENT Condition: Stable Admissions Decision to Admit Reason: Admit from ER (General) Decision to Admit/Date: April 03, 2018 Time/Decision to Admit Time: 18:15 Departure-Patient Inst. Referrals: TOMMY SCOTT MD (PCP/Family) Primary Care Physician ANGELA BRANTLEY APRN April 03, 2018 16:46
[2018-04-03 16:55] LABS: BASOPHILS % (AUTO) 0 % (0-10); EOSINOPHILS # (AUTO) 0.1 10^3/uL (0.0-0.3); EOSINOPHILS % (AUTO) 2 % (0-10); HEMATOCRIT 38 % (35-52); HEMOGLOBIN 12.8 G/DL (11.5-16.0); LYMPHOCYTES % (AUTO) 36 % (12-44); MEAN CORPUSCULAR HEMOGLOBIN 30 PG (25-34); MEAN CORPUSCULAR HGB CONC 34 G/DL (32-36); MEAN CORPUSCULAR VOLUME 91 FL (80-99); MEAN PLATELET VOLUME 9.8 FL (7.4-10.4); MONOCYTES # (AUTO) 0.3 X 10^3 (0.0-1.0); MONOCYTES % (AUTO) 6 % (0-12); NEUTROPHILS # (AUTO) 3.1 X 10^3 (1.8-7.8); NEUTROPHILS % (AUTO) 57 % (42-75); PLATELET COUNT 266 10^3/uL (130-400); RED BLOOD COUNT 4.22 10^6/uL (4.35-5.85); RED CELL DISTRIBUTION WIDTH 14.3 % (10.0-14.5); WHITE BLOOD COUNT 5.5 10^3/uL (4.3-11.0)
[2018-04-03] MEDS: NITROGLYCERIN 0.4 MG SL TABS BTL 25'S SL PRN ×3 (17:04→17:22)
[2018-04-03 17:06] LABS: PROTHROMBIN TIME PATIENT 12.8 SEC (12.2-14.7)
--- NOTE | 2018-04-03 17:08 | Diagnostic Imaging Report ---
Portable erect AP chest at 4:58 p.m. INDICATION: Chest tightness. FINDINGS: The heart size is within normal limits and stable when compared to 01/24/16. The lungs are clear. There is no sign of failure, pneumonia or pleural effusion to suggest an acute abnormality. The mediastinum is not widened. The osseous structures are intact. As noted on the prior exam, there are numerous surgical clips overlying each side of the thorax. IMPRESSION: There is no evidence for an acute cardiopulmonary abnormality. Dictated by: Dictated on workstation # [id number]
[2018-04-03 17:13] LABS: ALANINE AMINOTRANSFERASE 13 U/L (0-55); ALBUMIN 4.2 GM/DL (3.2-4.5); ALKALINE PHOSPHATASE 112 U/L (40-136); BILIRUBIN,TOTAL 0.3 MG/DL (0.1-1.0); BUN/CREATININE RATIO 12; CALCIUM 9.3 MG/DL (8.5-10.1); CARBON DIOXIDE 22 MMOL/L (21-32); CHLORIDE 106 MMOL/L (98-107); CREATININE SERUM 0.84 MG/DL (0.60-1.30); GFR ESTIMATED > 60; GLUCOSE 89 MG/DL (70-105); POTASSIUM 3.8 MMOL/L (3.6-5.0); SODIUM 138 MMOL/L (135-145); TOTAL PROTEIN 7.5 GM/DL (6.4-8.2)
[2018-04-03 17:19] LABS: MYOGLOBIN SERUM 30.1 NG/ML (10.0-92.0)
--- OUTSIDE RECORDS SUMMARY | 2018-04-03 18:48 | XMS REPORT | Clinical Summary ---
Author Author [facility] Organization [facility] Address Unknown Phone Unavailable Care Team Providers Care Smocker Name Role Phone Lincoln Grande MD Unavailable Laila Clarke MD PCP Will Huerta MD Unavailable Rosie Beltran RN Unavailable Unavailable Dayana Gannon RN Unavailable Unavailable Anabel Phoenix RN Unavailable Unavailable Kimber Portillo PA-C Unavailable Eder Stephen MD Unavailable Mary Morillo RN Unavailable Unavailable Nicol Mejia RN Unavailable Unavailable Sandhya Rodriguez MD Unavailable Lexus Hamilton RN Unavailable Unavailable Melia Patino RN Unavailable Source Comments Some departments are not documenting in the electronic medical record. If you do not see the information that you expected, contact Release of Information in the Health Information Management department at [phone] for further assistance in locating additional records.[facility] Allergies No Known Allergies Current Medications Prescription Sig. [...] Active (SENOKOT-S) 8.6/50 mg daily. 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 Morbid obesity (HCC) 12/12/2015 S/P breast reconstruction, bilateral 12/01/2015 Rotator cuff (capsule) sprain 09/28/2014 Breast cancer (HCC) 06/22/2014 Immunizations Name Dates Previously Given Next Due Pneumococcal Vaccine 12/06/2015 (23-Kim Adult) Family History Medical History Relation Name Comments Cancer Brother Cancer-Lung Father Arthritis-rheumatoid Maternal Grandfather Arthritis-osteo Mother Cancer-Breast Mother Cancer-Thyroid Mother Hypertension Mother Cancer-Lung Paternal Aunt Cancer Paternal Grandfather Relation Name Status Comments Brother Father Maternal Grandfather Maternal Grandmother Mother Paternal Aunt Paternal Grandfather Social History Tobacco Use Types Packs/Day Years Used Date Passive Smoke Exposure - Never Smoker Smokeless Tobacco: Never Used Alcohol Use Drinks/Week oz/Week Comments Yes 1 Standard 0.5 rarely drinks or equivalent Sex Assigned at Date Recorded Not on file Last Filed Vital Signs Vital Sign Reading Time Taken Blood Pressure 115/67 01/29/2017 9:43 AM CDT Pulse 71 01/29/2017 9:43 AM CDT Temperature 36.7 C (98.1 F) 01/29/2017 9:43 AM CDT Respiratory Rate 18 01/29/2017 9:43 AM CDT Oxygen Saturation 99% 01/29/2017 9:43 AM CDT Inhaled Oxygen - - Concentration Weight 105.7 kg (233 lb) 01/29/2017 9:43 AM CDT Height 162.6 cm (5' 4") 01/29/2017 9:43 AM CDT Body Mass Index 39.99 01/29/2017 9:43 AM CDT Plan of Treatment Health Maintenance Due Date Last Done Comments HEPATITIS C SCREENING 1965 PHYSICAL (COMPREHENSIVE) 1971 EXAM PERTUSSIS VACCINE 1975 HIV SCREENING 1979 TETANUS VACCINE 1981 CERVICAL CANCER SCREENING 1994 COLORECTAL CANCER 2014 SCREENING BREAST CANCER SCREENING 01/29/2018 01/29/2017, 01/26/2016, 01/27/2015 INFLUENZA VACCINE 08/04/2018 Results Not on filefrom Last 3 Months
--- OUTSIDE RECORDS SUMMARY | 2018-04-03 18:52 | XMS REPORT | Continuity of Care Document ---
Author Author [facility] Organization [facility] Address Unknown Phone Unavailable Allergies Active Description Code Type Severity Reaction Onset Reported/Identified Relationship to Patient Clinical Status Yes No Known Drug Allergies [id number] Drug Allergy Unknown N/A 01/11/2014 Yes codeine [id number] Drug Allergy Mild UPSET STOMACH 08/12/2015 Medications There is no data. 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 01/13/2014 JACK DÍAZ MD Ot 174.9 MALIGN NEOPL BREAST NOS 01/13/2014 JACK DÍAZ MD Ot V74.8 SCREEN-BACTERIAL DIS NEC 04/04/2014 ARNULFO RADER MD Ot 174.9 MALIGN NEOPL BREAST NOS 04/04/2014 ARNULFO RADER MD Ot V58.11 ENCOUNTER FOR ANTINEOPLASTIC CHEMOTHERAP 07/06/2014 ARNULFO RADER MD Ot 174.9 MALIGN NEOPL BREAST NOS 07/06/2014 ARNULFO RADER MD Ot V58.11 ENCOUNTER FOR ANTINEOPLASTIC CHEMOTHERAP 07/06/2014 ARNULFO RADER MD Ot V58.69 OTH MED,LT,CURRENT USE 07/06/2014 ARNULFO RADER MD Ot V86.0 ESTROGEN RECEPTOR POSITIVE STATUS [ER+] 09/17/2014 ARNULFO RADER MD Ot 174.9 09/17/2014 ARNULFO RADER MD Ot 174.9 09/17/2014 ARNULFO RADER MD Ot V58.69 09/17/2014 JACK DÍAZ MD Ot 174.9 09/17/2014 JACK DÍAZ MD Ot V72.84 09/17/2014 JACK DÍAZ MD Ot V74.8 09/17/2014 PENASTEPHANIE Negrete CABINETMAKER APPRENTICE Ot 174.9 09/17/2014 PENASTEPHANIE Negrete CABINETMAKER APPRENTICE Ot V58.69 09/17/2014 STEPHANIE PENA CABINETMAKER APPRENTICE Ot 174.9 09/17/2014 STEPHANIE PENA CABINETMAKER APPRENTICE Ot V58.69 09/17/2014 PENASTEPHANIE Negrete CABINETMAKER APPRENTICE Ot V86.0 09/17/2014 PRASANTH JARAMILLO, ARNULFO Prashant Ot 174.9 09/17/2014 PRASANTH JARAMILLO, ARNULFO Cerda Ot V58.69 09/17/2014 PRASANTH JARAMILLO, ARNULFO Cerda Ot 174.9 09/17/2014 PRASANTH JARAMILLO, ARNULFO Cerda Ot V58.69 09/17/2014 PRASANTH JARAMILLO, ARNULFO Prashant Ot V58.83 09/17/2014 PRASANTH JARAMILLO, ARNULFO Prashant Ot V87.41 09/17/2014 PRASANTH JARAMILLO, ARNULFO Prashant Ot 174.9 09/17/2014 PRASANTH JARAMILLO, ARNULFO Prashant Ot V58.69 09/17/2014 PRASANTH JARAMILLO, ARNULFO Prashant Ot V58.83 09/17/2014 PRASANTH JARAMILLO, ARNULFO Prashant Ot V67.2 09/17/2014 PRASANTH JARAMILLO, ARNULFO Cerda Ot 174.9 09/17/2014 PRASANTH JARAMILLO, ARNULFO Cerda Ot V67.2 09/17/2014 PRASANTH JARAMILLO, ARNULFO Prashant Ot 174.9 09/17/2014 PRASANTH JARAMILLO, ARNULFO Cerda Ot V58.69 09/17/2014 PRASANTH JARAMILLO, ARNULFO Cerda Ot V86.0 09/17/2014 PRASANTH JARAMILLO, ARNULFO Prashant Ot 174.9 09/17/2014 PRASANTH JARAMILLO, ARNULFO Prashant Ot V58.69 09/17/2014 PRASANTH JARAMILLO, ARNULFO Cerda Ot V58.83 09/17/2014 PRASANTH JARAMILLO, ARNULFO Prashant Ot V87.41 09/17/2014 ADILENE PANDYA MD Ot 174.9 09/17/2014 MUMTAZ JARAMILLO, ADILENE Liu Ot 397.0 09/17/2014 ADILENE PANDYA MD Ot 424.0 09/17/2014 ADILENE PANDYA MD Ot 425.4 09/17/2014 ADILENE PANDYA MD Ot 428.0 09/17/2014 ADILENE PANDYA MD Ot 782.3 09/17/2014 ADILENE PANDYA MD Ot 174.9 09/17/2014 ADILENE PANDYA MD Ot 425.4 09/17/2014 ADILENE PANDYA MD Ot 428.0 09/17/2014 ADILENE PANDYA MD Ot 782.3 09/17/2014 ADILENE PANDYA MD Ot 174.9 MALIGN NEOPL BREAST NOS 09/17/2014 ADILENE PANDYA MD Ot 272.4 HYPERLIPIDEMIA NEC/NOS 09/17/2014 ADILENE PANDYA MD Ot 401.9 HYPERTENSION NOS 09/17/2014 ADILENE PANDYA MD Ot 414.01 CORONARY ATHEROSCLEROSIS OF AMBLER CORON 09/17/2014 ADILENE PANDYA MD Ot 425.4 PRIM CARDIOMYOPATHY NEC 09/17/2014 ADILENE PANDYA MD Ot 428.0 CONGESTIVE HEART FAILURE NOS 09/17/2014 ADILENE PANDYA MD Ot 786.50 CHEST PAIN NOS 09/17/2014 ADILENE PANDYA MD Ot 794.30 ABN CARDIOVASC STUDY NOS 09/17/2014 ADILENE PANDYA MD Ot V58.69 OT MED,LT,CURRENT USE 09/17/2014 ADILENE PANDYA MD Ot V87.41 PERSONAL HISTORY OF ANTINEOPLASTIC CHEMO 10/04/2014 ARNULFO RADER MD Ot 174.9 10/04/2014 PRASANTH JARAMILLO, ARNULFO Cerda Ot 174.9 10/04/2014 ARNULFO RADER MD Ot V58.69 10/04/2014 BRE JARAMILLO, JACK S Ot 174.9 10/04/2014 BRE JARAMILLO, JACK S Ot V72.84 10/04/2014 BRE JARAMILLO, JACK S Ot V74.8 10/04/2014 STEPHANIE PENA CABINETMAKER APPRENTICE Ot 174.9 10/04/2014 STEPHANIE PENA CABINETMAKER APPRENTICE Ot V58.69 10/04/2014 STEPHANIE PENA CABINETMAKER APPRENTICE Ot 174.9 10/04/2014 STEPHANIE PENA CABINETMAKER APPRENTICE Ot V58.69 10/04/2014 STEPHANIE PENA CABINETMAKER APPRENTICE Ot V86.0 10/04/2014 PRASANTH JARAMILLO, ARNULFO Cerda Ot 174.9 10/04/2014 ARNULFO RADER MD Ot V58.69 10/04/2014 PRASANTH JARAMILLO, ARNULFO Cerda Ot 174.9 10/04/2014 ARNULFO RADER MD Ot V58.69 10/04/2014 ARNULFO RADER MD Ot V58.83 10/04/2014 PRASANTH JARAMILLO, ARNULFO Cerda Ot V87.41 10/04/2014 PRASANTH JARAMILLO, ARNULFO Cerda Ot 174.9 10/04/2014 PRASANTH JARAMILLO, ARNULFO Cerda Ot V58.69 10/04/2014 PRASANTH JARAMILLO, ARNULFO Cerda Ot V58.83 10/04/2014 PRASANTH JARAMILLO, ARNULFO Cerda Ot V67.2 10/04/2014 PRASANTH JARAMILLO, ARNULFO Cerda Ot 174.9 10/04/2014 PRASANTH JARAMILLO, ARNULFO Cerda Ot V67.2 10/04/2014 PRASANTH JARAMILLO, ARNULFO Cerda Ot 174.9 10/04/2014 PRASANTH JARAMILLO, ARNULFO Cerda Ot V58.69 10/04/2014 PRASANTH JARAMILLO, ARNULFO Cerda Ot V86.0 10/04/2014 PRASANTH JARAMILLO, ARNULFO Cerda Ot 174.9 10/04/2014 PRASANTH JARAMILLO, ARNULFO Cerda Ot V58.69 10/04/2014 PRASANTH JARAMILLO, ARNULFO Cerda Ot V58.83 10/04/2014 RPASANTH JARAMILLO, ARNULFO Cerda Ot V87.41 10/04/2014 MUMTAZ JARAMILLO, ADILENE Liu Ot 174.9 10/04/2014 MUMTAZ JARAMILLO, ADILENE J Ot 397.0 10/04/2014 MUMTAZ JARAMILLO, ADILENE J Ot 424.0 10/04/2014 MUMTAZ JARAMILLO, ADILENE Liu Ot 425.4 10/04/2014 MUMTAZ JARAMILLO, ADILENE Liu Ot 428.0 10/04/2014 MUMTAZ JARAMILLO, ADILENE Liu Ot 782.3 10/04/2014 ADILENE PANDYA MD Ot 174.9 10/04/2014 ADILENE PANDYA MD Ot 425.4 10/04/2014 MUMTAZ JARAMILLO, ADILENE Liu Ot 428.0 10/04/2014 ADILENE PANDYA MD Ot 782.3 10/11/2014 SILVER JARAMILLO, ARASELI Ot 840.4 10/11/2014 SILVER JARAMILLO, ARASELI Ot E000.8 10/11/2014 SILVER JARAMILLO, ARASELI Ot E928.9 10/11/2014 SILVER JARAMILLO, ARASELI Ot V57.1 10/11/2014 ADILENE PANDYA MD Ot 174.9 10/11/2014 ADILENE PANDYA MD Ot 397.0 10/11/2014 ADILENE PANDYA MD Ot 424.0 10/11/2014 ADILENE PANDYA MD Ot 425.4 10/11/2014 MUMTAZ JARAMILLO, ADILENE J Ot 428.0 10/11/2014 MUMTAZ JARAMILLO, ADILENE Liu Ot 782.3 10/11/2014 MUMTAZ JARAMILLO, ADILENE J Ot 174.9 10/11/2014 MUMTAZ JARAMILLO, ADILENE J Ot 425.4 10/11/2014 MUMTAZ JARAMILLO, ADILENE J Ot 428.0 10/11/2014 MUMTAZ JARAMILLO, ADILENE Liu Ot 782.3 10/26/2014 SILVER JARAMILLO, ARASELI Ot 840.4 10/26/2014 SILVER JARAMILLO, ARASELI Ot E000.8 10/26/2014 SILVER JARAMILLO, ARASELI Ot E928.9 10/26/2014 SILVER JARAMILLO, ARASELI Ot V57.1 11/01/2014 PRASANTH JARAMILLO, ARNULFO Cerda Ot 174.9 MALIGN NEOPL BREAST NOS 11/01/2014 PRASANTH JARAMILLO, ARNULFO Cerda Ot V58.0 ENCOUNTER FOR RADIOTHERAPY 11/01/2014 PRASANTH JARAMILLO, ARNULFO Cerda Ot V58.69 [facility],,CURRENT USE 11/01/2014 PRASANTH JARAMILLO, ARNULFO Cerda Ot V86.0 ESTROGEN RECEPTOR POSITIVE STATUS [ER+] 11/11/2014 PRASANTH JARAMILLO, ARNULFO Cerda Ot 174.9 11/11/2014 PRASANTH JARAMILLO, ARNULFO Cerda Ot 429.1 11/11/2014 PRASANTH JARAMILLO, ARNULFO Cerda Ot V58.69 11/11/2014 PRASANTH JARAMILLO, ARNULFO Cerda Ot V58.83 11/11/2014 PRASANTH JARAMILLO, ARNULFO Cerda Ot V87.41 11/12/2014 SONIA JARAMILLO, TOMMY A Ot 729.1 11/12/2014 SONIA JARAMILLO, TOMMY A Ot 780.79 11/12/2014 SONIA JARAMILLO, TOMMY A Ot 783.1 11/17/2014 PRASANTH JARAMILLO, ARNULFO Cerda Ot 174.9 11/17/2014 PRASANTH JARAMILLO, ARNULFO Cerda Ot V58.69 11/17/2014 PRASANTH JARAMILLO, ARNULFO Cerda Ot V86.0 11/23/2014 PRASANTH JARAMILLO, ARNULFO Cerda Ot 174.9 11/23/2014 PRASANTH JARAMILLO, ARNULFO Cerda Ot 429.1 11/23/2014 PRASANTH JARAMILLO, ARNULFO Cerda Ot V58.69 11/23/2014 PRASANTH JARAMILLO, ARNULFO Cerda Ot V58.83 11/23/2014 PRASANTH JARAMILLO, ARNULFO Cerda Ot V87.41 11/23/2014 SILVER JARAMILLO, ARASELI Ot 840.4 11/23/2014 SILVER JARAMILLO, ARASELI Ot E000.8 11/23/2014 SILVER JARAMILLO, ARASELI Ot E928.9 11/23/2014 SILVER JARAMILLO, ARASELI Ot V57.1 11/23/2014 SONIA JARAMILLO, TOMMY A Ot 729.1 11/23/2014 SONIA JARAMILLO, TOMMY A Ot 780.79 11/23/2014 SONIA JARAMILLO, TOMMY A Ot 783.1 11/24/2014 PRASANTH JARAMILLO, ARNULFO Cerda Ot 174.9 11/24/2014 PRASANTH JARAMILLO, ARNULFO Cerda Ot V58.69 11/24/2014 PRASANTH JARAMILLO, ARNULFO Cerda Ot V86.0 11/29/2014 SILVER JARAMILLO, ARASELI Ot 840.4 11/29/2014 SILVER JARAMILLO, ARASELI Ot E000.8 11/29/2014 SILVER JARAMILLO, ARASELI Ot E928.9 11/29/2014 SILVER JARAMILLO, ARASELI Ot V57.1 12/14/2014 PRASANTH JARAMILLO, ARNULFO Cerda Ot 174.9 12/14/2014 PRASANTH JARAMILLO, ARNULFO Cerda Ot V58.69 12/14/2014 PRASANTH JARAMILLO, ARNULFO Cerda Ot V86.0 12/14/2014 PRASANTH JARAMILLO, ARNULFO Cerda Ot 174.9 12/14/2014 PRASANTH JARAMILLO, ARNULFO Cerda Ot V58.69 12/14/2014 PRASANTH JARAMILLO, ARNULFO Cerda Ot V86.0 12/15/2014 PRASANTH JARAMILLO, ARNULFO Cerda Ot 174.9 12/15/2014 PRASANTH JARAMILLO, ARNULFO Prashant Ot 429.1 12/23/2014 SILVER JARAMILLO, ARASELI Ot 840.4 12/23/2014 SILVER JARAMILLO, ARASELI Ot E000.8 12/23/2014 SILVER JARAMILLO, ARASELI Ot E928.9 12/23/2014 SILVER JARAMILLO, ARASELI Ot V57.1 12/23/2014 PRASANTH JARAMILLO, ARNULFO Cerda Ot 174.9 12/23/2014 PRASANTH JARAMILLO, ARNULFO K Ot V58.69 12/23/2014 PRASANTH JARAMILLO, ARNULFO Cerda Ot V86.0 12/24/2014 PRASANTH JARAMILLO, ARNULFO Cerda Ot 174.9 12/24/2014 PRASANTH JARAMILLO, ARNULFO Cerda Ot V58.69 12/24/2014 PRASANTH JARAMILLO, ARNULFO Cerda Ot V86.0 12/30/2014 PRASANTH JARAMILLO, ARNULFO Cerda Ot 174.9 12/30/2014 PRASANTH JARAMILLO, ARNULFO Cerda Ot V58.69 12/30/2014 PRASANTH JARAMILLO, ARNULFO Cerda Ot V86.0 01/04/2015 SILVER JARAMILLO, ARASELI Ot 840.4 SPRAIN ROTATOR CUFF 01/04/2015 SILVER JARAMILLO, ARASELI Ot E000.8 OTHER EXTERNAL CAUSE STATUS 01/04/2015 SILVER JARAMILLO, ARASELI Ot E928.9 ACCIDENT NOS 01/04/2015 SILVER JARAMILLO, ARASELI Ot V57.1 PHYSICAL THERAPY NEC 01/07/2015 SILVER JARAMILLO, ARASELI Ot 840.4 SPRAIN ROTATOR CUFF 01/07/2015 SILVER JARAMILLO, ARASELI Ot E000.8 OTHER EXTERNAL CAUSE STATUS 01/07/2015 SILVER JARAMILLO, ARASELI Ot E928.9 ACCIDENT NOS 01/07/2015 SILVER JARAMILLO, ARASELI Ot V57.1 PHYSICAL THERAPY NEC 01/27/2015 Ot 174.9 01/27/2015 Ot 428.0 02/04/2015 PRASANTH JARAMILLO, ARNULFO Cerda Ot 174.9 02/04/2015 PRASANTH JARAMILLO, ARNULFO Cerda Ot V58.69 02/04/2015 PRASANTH JARAMILLO, ARNULFO Cerda Ot V86.0 02/18/2015 PRASANTH JARAMILLO, ARNULFO Cerda Ot V58.69 02/18/2015 PRASANTH JARAMILLO, ARNULFO Cerda Ot V58.83 02/22/2015 PRASANTH JARAMILLO, ARNULFO Cerda Ot 174.9 MALIGN NEOPL BREAST NOS 02/22/2015 PRASANTH JARAMILLO, ARNULFO Cerda Ot V58.11 ENCOUNTER FOR ANTINEOPLASTIC CHEMOTHERAP 02/22/2015 PRASANTH JARAMILLO, ARNULFO Cerda Ot V58.69 OT MED,LT,CURRENT USE 02/22/2015 PRASANTH JARAMILLO, ARNULFO Cerda Ot V86.0 ESTROGEN RECEPTOR POSITIVE STATUS [ER+] 02/24/2015 PRASANTH JARAMILLO, ARNULFO Cerda Ot 174.9 02/24/2015 PRASANTH JARAMILLO, ARNULFO Cerda Ot V58.69 02/24/2015 PRASANTH JARAMILLO, ARNULFO Cerda Ot V86.0 03/03/2015 PRASANTH JARAMILLO, ARNULFO Cerda Ot 174.9 03/03/2015 PRASANTH JARAMILLO, ARNULFO Cerda Ot V58.69 03/03/2015 PRASANTH JARAMILLO, ARNULFO Cerda Ot V86.0 03/04/2015 ARNULFO RADER MD Ot 174.9 03/04/2015 PRASANTH JARAMILLO, ARNULFO Prashant Ot V58.69 03/04/2015 PRASANTH JARAMILLO, ARNULFO Cerda Ot V86.0 04/19/2015 PRASANTH JARAMILLO, ARNULFO Prashant Ot V58.69 04/19/2015 PRASANTH JARAMILLO, ARNULFO Prashant Ot V58.83 04/20/2015 PRASANTH JARAMILLO, ARNULFO Prashant Ot 174.9 04/20/2015 PRASANTH JARAMILLO, ARNULFO Prashant Ot V58.69 04/20/2015 PRASANTH JARAMILLO, ARNULFO Prashant Ot V86.0 04/29/2015 PRASANTH JARAMILLO, ARNULFO Prashant Ot 174.9 05/18/2015 PRASANTH JARAMILLO, ARNULFO Prashant Ot V58.69 05/18/2015 PRASANTH JARAMILLO, ARNULFO Prashant Ot V58.83 05/18/2015 PRASANTH JARAMILLO, ARNULFO Cerda Ot V58.69 05/18/2015 PRASANTH JARAMILLO, ARNULFO Prashant Ot V58.83 05/18/2015 Ot 174.9 05/18/2015 Ot 428.0 06/01/2015 PRASANTH JARAMILLO, ARNULFO Cerda Ot 174.9 MALIGN NEOPL BREAST NOS 06/01/2015 PRASANTH JARAMILLO, ARNULFO Prashant Ot V58.69 OTH MED,LT,CURRENT USE 06/01/2015 PRASANTH JARAMILLO, ARNULFO Cerda Ot V86.0 ESTROGEN RECEPTOR POSITIVE STATUS [ER+] 06/28/2015 PRASANTH JARAMILLO, ARNULFO Cerda Ot V58.69 06/28/2015 PRASANTH JARAMILLO, ARNULFO Prashant Ot V58.83 06/28/2015 Ot 174.9 06/28/2015 Ot 428.0 07/20/2015 PRASANTH JARAMILLO, ARNULFO Cerda Ot 174.9 07/20/2015 PRASANTH JARAMILLO, ARNULFO Cerda Ot V58.69 07/20/2015 PRASANTH JARAMILLO, ARNULFO Prashant Ot V86.0 07/28/2015 PRASANTH JARAMILLO, ARNULFO Prashant Ot 174.9 07/28/2015 PRASANTH JARAMILLO, ARNULFO Prashant Ot C50.919 07/28/2015 PRASANTH JARAMILLO, ARNULFO Prashant Ot V58.69 07/28/2015 PRASANTH JARAMILLO, ARNULFO Cerda Ot V86.0 07/28/2015 PRASANTH JARAMILLO, ARNULFO Cerda Ot Z17.0 08/03/2015 PRASANTH JARAMILLO, ARNULFO Cerda Ot 174.9 MALIGN NEOPL BREAST NOS 08/03/2015 PRASANTH JARAMILLO, ARNULFO Cerda Ot V58.69 OTH MED,LT,CURRENT USE 08/03/2015 PRASANTH JARAMILLO, ARNULFO Cerda Ot V86.0 ESTROGEN RECEPTOR POSITIVE STATUS [ER+] 08/04/2015 PRASANTH JARAMILLO, ARNULFO K Ot 174.9 08/04/2015 PRASANTH JARAMILLO, ARNULFO K Ot C50.919 08/04/2015 PRASANTH JARAMILLO, ARNULFO Prashant Ot V58.69 08/04/2015 PRASANTH JARAMILLO, ARNULFO Prashant Ot V86.0 08/04/2015 PRASANTH JARAMILLO, ARNULFO Prashant Ot Z17.0 08/12/2015 PRASANTH JARAMILLO, ARNULFO Prashant Ot 174.9 08/12/2015 PRASANTH JARAMILLO, ARNULFO Cerda Ot 174.9 08/12/2015 PRASANTH JARAMILLO, ARNULFO K Ot V58.69 08/12/2015 BRE JARAMILLO, JACK S Ot 174.9 08/12/2015 BRE JARAMILLO, JACK S Ot V72.84 08/12/2015 BRE JARAMILLO, JACK S Ot V74.8 08/12/2015 STEPHANIE PENA S CABINETMAKER APPRENTICE Ot 174.9 08/12/2015 PENASTEPHANIE Negrete S CABINETMAKER APPRENTICE Ot V58.69 08/12/2015 BECKY HILHORTENSIA S CABINETMAKER APPRENTICE Ot 174.9 08/12/2015 PENA, HILHORTENSIA S CABINETMAKER APPRENTICE Ot V58.69 08/12/2015 STEPHANIE PENA S CABINETMAKER APPRENTICE Ot V86.0 08/12/2015 PRASANTH JARAMILLO, ARNULFO K Ot 174.9 08/12/2015 PRASANTH JARAMILLO, ARNULFO Cerda Ot V58.69 08/12/2015 PRASANTH JARAMILLO, ARNULFO Cerda Ot 174.9 08/12/2015 PRASANTH JARAMILLO, ARNULFO Cerda Ot V58.69 08/12/2015 PRASANTH JARAMILLO, ARNULFO Cerda Ot V58.83 08/12/2015 PRASANTH JARAMILLO, ARNULFO Cerda Ot V87.41 08/12/2015 PRASANTH JARAMILLO, ARNULFO K Ot 174.9 08/12/2015 PRASANTH JARAMILLO, ARNULFO Cerda Ot V58.69 08/12/2015 PRASANTH JARAMILLO, ARNULFO Cerda Ot V58.83 08/12/2015 PRASANTH JARAMILLO, ARNULFO Prashant Ot V67.2 08/12/2015 PRASANTH JARAMILLO, ARNULFO Cerda Ot 174.9 08/12/2015 PRASANTH JARAMILLO, ARNULFO Cerda Ot V67.2 08/12/2015 PRASANTH JARAMILLO, ARNULFO Cerda Ot 174.9 08/12/2015 PRASANTH JARAMILLO, ARNULFO Cerda Ot V58.69 08/12/2015 PRASANTH JARAMILLO, ARNULFO Cerda Ot V58.83 08/12/2015 PRASANTH JARAMILLO, ARNULFO Cerda Ot V87.41 08/12/2015 PRASANTH JARAMILLO, ARNULFO Cerda Ot 174.9 08/12/2015 PRASANTH JARAMILLO, ARNULFO Prashant Ot 429.1 08/12/2015 PRASANTH JARAMILLO, ARNULFO Prashant Ot V58.69 08/12/2015 PRASANTH JARAMILLO, ARNULFO Prashant Ot V58.83 08/12/2015 PARSANTH JARAMILLO, ARNULFO Prashant Ot V87.41 08/12/2015 MUMTAZ JARAMILLO, ADILENE Liu Ot 174.9 08/12/2015 MUMTAZ JARAMILLO, ADILENE J Ot 397.0 08/12/2015 MUMTAZ JARAMILLO, JOSIEROSE J Ot 424.0 08/12/2015 MUMTAZ JARAMILLO, JOSIEROSE J Ot 425.4 08/12/2015 MUMTAZ JARAMILLO, JOSIEROSE J Ot 428.0 08/12/2015 MUMTAZ JARAMILLO, JOSIEROSE J Ot 782.3 08/12/2015 MUMTAZ JARAMILLO, ADILENE Liu Ot 174.9 08/12/2015 MUMTAZ JARAMILLO, JOSIEROSE J Ot 425.4 08/12/2015 MUMTAZ JARAMILLO, JOSIEROSE J Ot 428.0 08/12/2015 MUMTAZ JARAMILLO, ADILENE Liu Ot 782.3 08/12/2015 TOMMY SCOTT MD Ot 729.1 08/12/2015 TOMMY SCOTT MD Ot 780.79 08/12/2015 TOMMY SCOTT MD Ot 783.1 08/12/2015 PRASANTH JARAMILLO, ARNULFO Cerda Ot 174.9 08/12/2015 PRASANTH JARAMILLO, ARNULFO Prashant Ot 429.1 08/12/2015 Ot 174.9 08/12/2015 Ot 428.0 08/12/2015 PRASANTH JARAMILLO, ARNULFO Cerda Ot V58.69 08/12/2015 PRASANTH JARAMILLO, ARNULFO Prashant Ot V58.83 08/12/2015 PRASANTH JARAMILLO, ARNULFO Prashant Ot V58.69 08/12/2015 PRASANTH JARAMILLO, ARNULOF Prashant Ot V58.83 08/12/2015 PRASANTH JARAMILLO, ARNULFO Cerda Ot 174.9 08/12/2015 PRASANTH JARAMILLO, ARNULFO Cerda Ot 174.9 08/12/2015 PRASANTH JARAMILLO, ARNULFO Cerda Ot V58.69 08/12/2015 PRASANTH JARAMILLO, ARNULFO Cerda Ot V86.0 08/12/2015 PRASANTH JARAMILLO, ARNULFO Cerda Ot 174.9 08/12/2015 PRASANTH JARAMILLO, ARNULFO Cerda Ot V58.69 08/12/2015 ARNULFO RADER MD Ot V86.0 08/19/2015 NACHO HARRIS DO Ot C50.912 MALIGNANT NEOPLASM OF UNSPECIFIED SITE O 08/19/2015 NACHO HARRIS DO Ot C50.919 08/19/2015 KIMBERLY LYNNE NACHO Negrete Ot 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 08/19/2015 KIMBERLY LYNNE NACHO Negrete Ot D25.1 INTRAMURAL LEIOMYOMA OF UTERUS 08/19/2015 KIMBERLY LYNNE NACHO Negrete Ot N80.0 ENDOMETRIOSIS OF UTERUS 08/19/2015 KIMBERLY LYNNE NACHO Negrete Ot N83.8 OTH NONINFLAMMATORY DISORD OF OVARY, FAL 08/19/2015 KIMBERLY LYNNE NACHO Negrete Ot R93.8 ABNORMAL FINDINGS ON DIAGNOSTIC IMAGING 08/19/2015 KIMBERLY LYNNE NACHO Negrete Ot Z17.0 ESTROGEN RECEPTOR POSITIVE STATUS [ER+] 08/19/2015 KIMBERLY LYNNE NACHO Negrete Ot Z23 ENCOUNTER FOR IMMUNIZATION 08/19/2015 KIMBERLY LYNNE NACHO Negrete Rod Z79.810 LNG TRM (CRNT) USE OF SLCTV ESTROG NET DEVELOPER CONTRACT 08/31/2015 KIMBERLY LYNNE NACHO Negrete Ot N93.9 08/31/2015 KIMBERLY LYNNE NACHO Negrete Rod Z79.810 09/12/2015 PRASANTH JARAMILLO, ARNULFO Cerda Ot 174.9 09/12/2015 PRASANTH JARAMILLO, ARNULFO Cerda Ot V58.69 09/12/2015 PRASANTH JARAMILLO, ARNULFO Cerda Ot V86.0 09/13/2015 PARSANTH JARAMILLO, ANRULFO Cerda Ot 174.9 09/13/2015 PRASANTH JARAMILLO, ARNULFO Cerda Ot 174.9 09/13/2015 PRASANTH JARAMILLO, ARNULFO Cerda Ot V58.69 09/13/2015 BRE JARAMILLO, JACK Negrete Ot 174.9 09/13/2015 BRE JARAMILLO, JACK S Ot V72.84 09/13/2015 BRE JARAMILLO, JACK S Ot V74.8 09/13/2015 STEPHANIE PENA CABINETMAKER APPRENTICE Ot 174.9 09/13/2015 STEPHANIE PENA CABINETMAKER APPRENTICE Ot V58.69 09/13/2015 STEPHANIE PENA CABINETMAKER APPRENTICE Ot 174.9 09/13/2015 STEPHANIE PENA CABINETMAKER APPRENTICE Ot V58.69 09/13/2015 STEPHANIE PENA CABINETMAKER APPRENTICE Ot V86.0 09/13/2015 PRASANTH AJRAMILLO, ARNULFO Cerda Ot 174.9 09/13/2015 PRASANTH JARAMILLO, ARNULFO Cerda Ot V58.69 09/13/2015 PRASANTH JARAMILLO, ARNULFO Cerda Ot 174.9 09/13/2015 PRASANTH JARAMILLO, ARNULFO Cerda Ot V58.69 09/13/2015 PRASANTH JARAMILLO, ARNULFO Cerda Ot V58.83 09/13/2015 PRASANTH JARAMILLO, ARNULFO Cerda Ot V87.41 09/13/2015 PRASANTH JARAMILLO, ARNULFO Prashant Ot 174.9 09/13/2015 PRASANTH JARAMILLO, ARNULFO Cerda Ot V58.69 09/13/2015 PRASANTH JARAMILLO, ARNULFO Cerda Ot V58.83 09/13/2015 PRASANTH JARAMILLO, ARNULFO Cerda Ot V67.2 09/13/2015 PRASANTH JARAMILLO, ARNULFO Cerda Ot 174.9 09/13/2015 PRASANTH JARAMILLO, ARNULFO Cerda Ot V67.2 09/13/2015 PRASANTH JARAMILLO, ARNULFO Cerda Ot 174.9 09/13/2015 PRASANTH JARAMILLO, ARNULFO Cerda Ot V58.69 09/13/2015 PRASANTH JARAMILLO, ARNULFO Cerda Ot V58.83 09/13/2015 PRASANTH JARAMILLO, ARNULFO Cerda Ot V87.41 09/13/2015 PRASANTH JARAMILLO, ARNULFO Prashant Ot 174.9 09/13/2015 PRASANTH JARAMILLO, ARNULFO Prashant Ot 429.1 09/13/2015 PRASANTH JARAMILLO, ARNULFO Cerda Ot V58.69 09/13/2015 PRASANTH JARAMILLO, ARNULFO Cerda Ot V58.83 09/13/2015 PRASANTH JARAMILLO, ARNULFO Cerda Ot V87.41 09/13/2015 MUMTAZ JARAMILLO, ADILENE Liu Ot 174.9 09/13/2015 MUMTAZ JARAMILLO, ADILENE J Ot 397.0 09/13/2015 MUMTAZ JARAMILLO, ADILENE J Ot 424.0 09/13/2015 MUMTAZ JARAMILLO, BASHAR J Ot 425.4 09/13/2015 MUMTAZ JARAMILLO, ADILENE J Ot 428.0 09/13/2015 MUMTAZ JARAMILLO, ADILENE J Ot 782.3 09/13/2015 MUMTAZ JARAMILLO, ADILENE J Ot 174.9 09/13/2015 MUMTAZ JARAMILLO, BASHAR J Ot 425.4 09/13/2015 MUMTAZ JARAMILLO, ADILENE J Ot 428.0 09/13/2015 MUMTAZ JARAMILLO, ADILENE J Ot 782.3 09/13/2015 SONIA JARAMILLO, TOMMY Taylor Ot 729.1 09/13/2015 SONIA JARAMILLO, TOMMY A Ot 780.79 09/13/2015 TOMMY SCOTT MD A Ot 783.1 09/13/2015 PRASANTH JARAMILLO, ARNULFO Cerda Ot 174.9 09/13/2015 PRASANTH JARAMILLO, ARNULFO Cerda Ot 429.1 09/13/2015 Ot 174.9 09/13/2015 Ot 428.0 09/13/2015 PRASANTH JARAMILLO, ARNULFO Cerda Ot V58.69 09/13/2015 PRASANTH JARAMILLO, ARNULFO Cerda Ot V58.83 09/13/2015 PRASANTH JARAMILLO, ARNULFO Cerda Ot V58.69 09/13/2015 PRASANTH JARAMILLO, ARNULFO Cerda Ot V58.83 09/13/2015 PRASANTH JARAMILLO, ARNULFO Cerda Ot 174.9 09/13/2015 PRASANTH JARAMILLO, ARNULFO Cerda Ot C50.919 09/13/2015 PRASANTH JARAMILLO, ARNULFO Cerda Ot Z17.0 09/13/2015 PRASANTH JARAMILLO, ARNULFO Cerda Ot Z79.899 09/13/2015 FENECH DO, NACHO S Ot C50.919 09/13/2015 FENECH DO, NACHO S Ot Z01.818 09/13/2015 FENECH DO, NACHO S Ot Z11.2 09/13/2015 FENECH DO, NACHO S Ot N93.9 09/13/2015 FENECH DO, NACHO S Ot Z79.810 09/16/2015 PRASANTH JARAMILLO, ARNULFO Cerda Ot C50.412 09/16/2015 PRASANTH JARAMILLO, ARNULFO Cerda Ot Z51.81 09/16/2015 PRASANTH JARAMILLO, ARNULFO Cerda Ot Z79.899 09/16/2015 PRASANTH JARAMILLO, ARNULFO Cerda Ot C50.412 09/16/2015 PRASANTH JARAMILLO, ARNULFO Cerda Ot Z51.81 09/16/2015 PRASANTH JARAMILLO, ARNULFO Cerda Ot Z79.899 09/27/2015 PRASANTH JARAMILLO, ARNULFO Cerda Ot 174.9 09/27/2015 PRASANTH JARAMILLO, ARNULFO Cerda Ot 174.9 09/27/2015 PRASANTH JARAMILLO, ARNULFO Cerda Ot V58.69 09/27/2015 BRE JARAMILLO, JACK S Ot 174.9 09/27/2015 BRE JARAMILLO, JACK S Ot V72.84 09/27/2015 BRE JARAMILLO, JACK S Ot V74.8 09/27/2015 STEPHANIE PENA CABINETMAKER APPRENTICE Ot 174.9 09/27/2015 STEPHANIE PENA CABINETMAKER APPRENTICE Ot V58.69 09/27/2015 STEPHANIE PENA CABINETMAKER APPRENTICE Ot 174.9 09/27/2015 STEPHANIE PENA CABINETMAKER APPRENTICE Ot V58.69 09/27/2015 STEPHANIE PENA CABINETMAKER APPRENTICE Ot V86.0 09/27/2015 PRASANTH JARAMILLO, ARNULFO Cerda Ot 174.9 09/27/2015 PRASANTH JARAMILLO, ARNULFO Cerda Ot V58.69 09/27/2015 PRASANTH JARAMILLO, ARNULFO Cerda Ot 174.9 09/27/2015 PRASANTH JARAMILLO, ARNULFO Cerda Ot V58.69 09/27/2015 PRASANTH JARAMILLO, ARNULFO Cerda Ot V58.83 09/27/2015 PRASANTH JARAMILLO, ARNULFO Cerda Ot V87.41 09/27/2015 PRASANTH JARAMILLO, ARNULFO Cerda Ot 174.9 09/27/2015 PRASANTH JARAMILLO, ARNULFO Cerda Ot V58.69 09/27/2015 PRASANTH JARAMILLO, ARNULFO Cerda Ot V58.83 09/27/2015 PRASANTH JARAMILLO, ARNULFO Cerda Ot V67.2 09/27/2015 PRASANTH JARAMILLO, ARNULFO Cerda Ot 174.9 09/27/2015 PRASANTH JARAMILLO, ARNULFO Cerda Ot V67.2 09/27/2015 PRASANTH JARAMILLO, ARNULFO Cerda Ot 174.9 09/27/2015 PRASANTH JARAMILLO, ARNULFO Cerda Ot V58.69 09/27/2015 PRASANTH JARAMILLO, ARNULFO Cerda Ot V58.83 09/27/2015 PRASANTH JARAMILLO, ARNULFO Cerda Ot V87.41 09/27/2015 PRASANTH JARAMILLO, ARNULFO Cerda Ot 174.9 09/27/2015 PRASANTH JARAMILLO, ARNULFO Cerda Ot 429.1 09/27/2015 PRASANTH JARAMILLO, ARNULFO Cerda Ot V58.69 09/27/2015 PRASANTH JARAMILLO, ARNULFO Cerda Ot V58.83 09/27/2015 PRASANTH JARAMILLO, ARNULFO Cerda Ot V87.41 09/27/2015 MUMTAZ JARAMILLO, ADILENE Liu Ot 174.9 09/27/2015 MUMTAZ JARAMILLO, ADILENE Liu Ot 397.0 09/27/2015 MUMTAZ JARAMILLO, ADILENE J Ot 424.0 09/27/2015 MUMTAZ JARAMILLO, ADILENE J Ot 425.4 09/27/2015 MUMTAZ JARAMILLO, ADILENE J Ot 428.0 09/27/2015 MUMTAZ JARAMILLO, ADILENE J Ot 782.3 09/27/2015 MUMTAZ JARAMILLO, ADILENE Liu Ot 174.9 09/27/2015 MUMTAZ JARAMILLO, ADILENE J Ot 425.4 09/27/2015 MUMTAZ JARAMILLO, ADILENE J Ot 428.0 09/27/2015 MUMTAZ JARAMILLO, ADILENE Liu Ot 782.3 09/27/2015 TOMMY SCOTT MD Ot 729.1 09/27/2015 TOMMY SCOTT MD Ot 780.79 09/27/2015 SONIA JARAMILLO, TOMMY Taylor Ot 783.1 09/27/2015 PRASANTH JARAMILLO, ARNULFO Cerda Ot 174.9 09/27/2015 PRASANTH JARAMILLO, ARNULFO Cerda Ot 429.1 09/27/2015 Ot 174.9 09/27/2015 Ot 428.0 09/27/2015 PRASANTH JARAMILLO, ARNULFO Cerda Ot V58.69 09/27/2015 PRASANTH JARAMILLO, ARNULFO Cerda Ot V58.83 09/27/2015 PRASANTH JARAMILLO, ARNULFO Cerda Ot V58.69 09/27/2015 PRASANTH JARAMILLO, ARNULFO Cerda Ot V58.83 09/27/2015 PRASANTH JARAMILLO, ARNULFO Cerda Ot 174.9 09/27/2015 PRASANTH JARAMILLO, ARNULFO Cerda Ot C50.919 09/27/2015 PRASANTH JARAMILLO, ARNULFO Cerda Ot Z17.0 09/27/2015 PRASANTH JARAMILLO, ARNULFO Cerda Ot Z79.899 09/27/2015 FENECH DO, NACHO S Ot C50.919 09/27/2015 FENECH DO, NACHO S Ot Z01.818 09/27/2015 FENECH DO, NACHO S Ot Z11.2 09/27/2015 FENECH DO, NACHO S Ot N93.9 09/27/2015 FENECH DO, NACHO S Ot Z79.810 09/27/2015 PRASANTH JARAMILLO, ARNULFO Cerda Ot C50.412 09/27/2015 PRASANTH JARAMILLO, ARNULFO Cerda Ot Z51.81 09/27/2015 PRASANTH JARAMILLO, ARNULFO Cerda Ot Z79.899 10/05/2015 PRASANTH JARAMILLO, ARNULFO Cerda Ot C50.412 10/05/2015 PRASANTH JARAMILLO, ARNULFO Cerda Ot Z51.81 10/05/2015 PRASANTH JARAMILLO, ARNULFO Cerda Ot Z79.899 10/20/2015 ARNULFO RADER MD Ot C50.412 10/20/2015 PRASANTH JARAMILLO, ARNULFO Cerda Ot Z17.0 10/20/2015 PRASANTH JARAMILLO, ARNULFO Cerda Ot Z79.899 11/09/2015 PRASANTH JARAMILLO, ARNULFO Cerda Ot C50.412 MALIG NEOPLASM OF UPPER-OUTER QUADRANT O 11/09/2015 PRASANTH JARAMILLO, ARNULFO Cerda Ot Z17.0 ESTROGEN RECEPTOR POSITIVE STATUS [ER+] 11/09/2015 PRASANTH JARAMILLO, ARNULFO Cerda Ot Z79.899 OTHER RETIREMENT (CURRENT) DRUG THERAPY 01/05/2016 ARNULFO RADER MD Ot C50.412 01/05/2016 PRASANTH JARAMILLO, ARNULFO K Ot Z17.0 01/05/2016 PRASANTH JARAMILLO, ARNULFO K Ot Z79.899 01/13/2016 PRASANTH JARAMILLO, ARNULFO K Ot C50.412 01/13/2016 PRASANTH JARAMILLO, ARNULFO K Ot Z17.0 01/13/2016 PRASANTH JARAMILLO, ARNULFO K Ot Z79.899 01/24/2016 PRASANTH JARAMILLO, ARNULFO K Ot 174.9 01/24/2016 PRASANTH JARAMILLO, ARNULFO Prashant Ot 174.9 01/24/2016 PRASANTH JARAMILLO, ARNULFO K Ot V58.69 01/24/2016 RBE JARAMILLO, JACK S Ot 174.9 01/24/2016 BRE JARAMILLO, JACK S Ot V72.84 01/24/2016 BRE JARAMILLO, JACK S Ot V74.8 01/24/2016 STEPHANIE PENA S CABINETMAKER APPRENTICE Ot 174.9 01/24/2016 STEPHANIE PENA S CABINETMAKER APPRENTICE Ot V58.69 01/24/2016 PENA, HILHORTENSIA S CABINETMAKER APPRENTICE Ot 174.9 01/24/2016 BECKY HILHORTENSIA S CABINETMAKER APPRENTICE Ot V58.69 01/24/2016 STEPHANIE PENA S CABINETMAKER APPRENTICE Ot V86.0 01/24/2016 PRASANTH JARAMILLO, ARNULFO K Ot 174.9 01/24/2016 PRASANTH JARAMILLO, ARNULFO K Ot V58.69 01/24/2016 PRASANTH JARAMILLO, ARNULFO K Ot 174.9 01/24/2016 PRASANTH JARAMILLO, ARNULFO K Ot V58.69 01/24/2016 PRASANTH JARAMILLO, ARNULFO K Ot V58.83 01/24/2016 PRASANTH JARAMILLO, ARNULFO Prashant Ot V87.41 01/24/2016 PRASANTH JARAMILLO, ARNULFO K Ot 174.9 01/24/2016 PRASANTH JARAMILLO, ARNULFO K Ot V58.69 01/24/2016 PRASANTH JARAMILLO, ARNULFO K Ot V58.83 01/24/2016 PRASANTH JARAMILLO, ARNULFO K Ot V67.2 01/24/2016 PRASANTH JARAMILLO, ARNULFO K Ot 174.9 01/24/2016 PRASANTH JARAMILLO, ARNULFO K Ot V67.2 01/24/2016 PRASANTH JARAMILLO, ARNULFO K Ot 174.9 01/24/2016 PRASANTH JARAMILLO, ARNULFO K Ot V58.69 01/24/2016 PRASANTH JARAMILLO, ARNULFO K Ot V58.83 01/24/2016 PRASANTH JARAMILLO, ARNULFO K Ot V87.41 01/24/2016 PRASANTH JARAMILLO, ARNULFO K Ot 174.9 01/24/2016 PRASANTH JARAMILLO, ARNULFO Prashant Ot 429.1 01/24/2016 PRASANTH JARAMILLO, ARNULFO Prashant Ot V58.69 01/24/2016 PRASANTH JARAMILLO, ARNULFO Prashant Ot V58.83 01/24/2016 PRASANTH JARAMILLO, ARNULFO Prashant Ot V87.41 01/24/2016 MUMTAZ JARAMILLO, JOSIEROSE J Ot 174.9 01/24/2016 MUMTAZ JARAMILLO, ADILENE J Ot 397.0 01/24/2016 MUMTAZ JARAMILLO, BASHAR J Ot 424.0 01/24/2016 MUMTAZ JARAMILLO, BASHAR J Ot 425.4 01/24/2016 MUMTAZ JARAMILLO, BASRSOE J Ot 428.0 01/24/2016 MUMTAZ JARAMILLO, ADILENE J Ot 782.3 01/24/2016 MUMTAZ JARAMILLO, ADILENE J Ot 174.9 01/24/2016 MUMTAZ JARAMILLO, ADILENE J Ot 425.4 01/24/2016 MUMTAZ JARAMILLO, ADILENE J Ot 428.0 01/24/2016 MUMTAZ JARAMILLO, ADILENE J Ot 782.3 01/24/2016 SONIA JARAMILLO, TOMMY A Ot 729.1 01/24/2016 SONIA JARAMILLO, TOMMY A Ot 780.79 01/24/2016 SONIA JARAMILLO, TOMMY A Ot 783.1 01/24/2016 PRASANTH JARAMILLO, ARNULFO Prashant Ot 174.9 01/24/2016 PRASANTH JARAMILLO, ARNULFO Prashant Ot 429.1 01/24/2016 Ot 174.9 01/24/2016 Ot 428.0 01/24/2016 PRASANTH JARAMILLO, ARNULFO Prashant Ot V58.69 01/24/2016 PRASANTH JARAMILLO, ARNULFO Prashant Ot V58.83 01/24/2016 PRASANTH JARAMILLO, ARNULFO Prashant Ot V58.69 01/24/2016 PRASANTH JARAMILLO, ARNULFO Prashant Ot V58.83 01/24/2016 PRASANTH JARAMILLO, ARNULFO Prashant Ot 174.9 01/24/2016 NACHO HARRIS DO S Ot C50.919 01/24/2016 UZAIRECH NACHO LYNNE S Ot Z01.818 01/24/2016 UZAIRECH NACHO LYNNE S Ot Z11.2 01/24/2016 NACHO HARRIS DO S Ot N93.9 01/24/2016 NACHO HARRIS DO Ot Z79.810 01/24/2016 ARNULFO RADER MD Ot C50.412 01/24/2016 ARNULFO RADER MD Prashant Ot Z51.81 01/24/2016 PRASANTH JARAMILLO, ARNULFO Cerda Ot Z79.899 01/24/2016 PRASANTH JARAMILLO, ARNULFO Prashant Ot C50.412 01/24/2016 PRASANTH JARAMILLO, ARNULFO Prashant Ot Z17.0 01/24/2016 PRASANTH JARAMILLO, ARNULFO Cerda Ot Z79.899 02/15/2016 PRASANTH JARAMILLO, ARNULFO Prashant Ot C50.412 02/15/2016 PRASANTH JARAMILLO, ARNULFO Prashant Ot Z17.0 02/15/2016 PRASANTH JARAMILLO, ARNULFO Prashant Ot Z79.899 02/15/2016 MUMTAZ JARAMILLO, ADILENE Liu Ot E78.5 02/15/2016 MUMTAZ JARAMILLO, ADILENE Liu Ot I50.9 02/15/2016 MUMTAZ JARAMILLO, ADILENE Liu Ot R06.02 02/15/2016 MUMTAZ JARAMILLO, ADILENE Liu Ot R60.9 03/05/2016 MUMTAZ JARAMILLO, ADILENE Liu Ot E78.5 HYPERLIPIDEMIA, UNSPECIFIED 03/05/2016 MUMTAZ JARAMILLO, ADILENE Liu Ot I50.9 HEART FAILURE, UNSPECIFIED 03/05/2016 MUMTAZ JARAMILLO, ADILENE Liu Ot R06.02 SHORTNESS OF BREATH 03/05/2016 MUMTAZ JARAMILLO, ADILENE Liu Ot R60.9 EDEMA, UNSPECIFIED 04/09/2016 PRASANTH JARAMILLO, ARNULFO Cerda Ot 174.9 MALIGN NEOPL BREAST NOS 04/09/2016 ARNULFO RADER MD Ot 174.9 MALIGN NEOPL BREAST NOS 04/09/2016 PRASANTH JARAMILLO, ARNULFO Prashant Ot V58.69 OTH MED,LT,CURRENT USE 04/09/2016 JACK DÍAZ MD Ot 174.9 MALIGN NEOPL BREAST NOS 04/09/2016 BRE JARAMILLO, JACK Negrete Ot V72.84 EXAM PRE-OPERATIVE NOS 04/09/2016 BRE JARAMILLO, JACK Negrete Ot V74.8 SCREEN-BACTERIAL DIS NEC 04/09/2016 STEPHANIE PENA CABINETMAKER APPRENTICE Ot 174.9 MALIGN NEOPL BREAST NOS 04/09/2016 STEPHANIE PENA CABINETMAKER APPRENTICE Ot V58.69 OTH MED,LT,CURRENT USE 04/09/2016 STEPHANIE PENA CABINETMAKER APPRENTICE Ot 174.9 MALIGN NEOPL BREAST NOS 04/09/2016 STEPHANIE PENA CABINETMAKER APPRENTICE Ot V58.69 OTH MED,LT,CURRENT USE 04/09/2016 STEPHANIE PENA Ot V86.0 ESTROGEN RECEPTOR POSITIVE STATUS [ER+] 04/09/2016 ARNULFO RADER MD Ot 174.9 MALIGN NEOPL BREAST NOS 04/09/2016 ARNULFO RADER MD Ot V58.69 OTH MED,LT,CURRENT USE 04/09/2016 ARNULFO RADER MD Ot 174.9 MALIGN NEOPL BREAST NOS 04/09/2016 ARNULFO RADER MD Ot V58.69 OTH MED,LT,CURRENT USE 04/09/2016 ARNULFO RADER MD Ot V58.83 ENCOUNTER FOR THERAPEUTIC DRUG MONITORIN 04/09/2016 ARNULFO RADER MD Ot V87.41 PERSONAL HISTORY OF ANTINEOPLASTIC CHEMO 04/09/2016 ARNULFO RADER MD Ot 174.9 MALIGN NEOPL BREAST NOS 04/09/2016 ARNULFO RADER MD Ot V58.69 OTH MED,LT,CURRENT USE 04/09/2016 ARNULFO RADER MD Ot V58.83 ENCOUNTER FOR THERAPEUTIC DRUG MONITORIN 04/09/2016 ARNULFO RADER MD Ot V67.2 CHEMOTHERAPY FOLLOW-UP 04/09/2016 ARNULFO RADER MD Ot 174.9 MALIGN NEOPL BREAST NOS 04/09/2016 ARNULFO RADER MD Ot V67.2 CHEMOTHERAPY FOLLOW-UP 04/09/2016 ARNULFO RADER MD Ot 174.9 MALIGN NEOPL BREAST NOS 04/09/2016 ARNULFO RADER MD Ot V58.69 OTH MED,LT,CURRENT USE 04/09/2016 ARNULFO RADER MD Ot V58.83 ENCOUNTER FOR THERAPEUTIC DRUG MONITORIN 04/09/2016 ARNULFO RADER MD Ot V87.41 PERSONAL HISTORY OF ANTINEOPLASTIC CHEMO 04/09/2016 ARNULFO RADER MD Ot 174.9 MALIGN NEOPL BREAST NOS 04/09/2016 ARNULFO RADER MD Ot 429.1 MYOCARDIAL DEGENERATION 04/09/2016 ARNULFO RADER MD Ot V58.69 OTH MED,LT,CURRENT USE 04/09/2016 ARNULFO RADER MD Ot V58.83 ENCOUNTER FOR THERAPEUTIC DRUG MONITORIN 04/09/2016 ARNULFO RADER MD Ot V87.41 PERSONAL HISTORY OF ANTINEOPLASTIC CHEMO 04/09/2016 ADILENE PANDYA MD Ot 174.9 MALIGN NEOPL BREAST NOS 04/09/2016 ADILENE PANDYA MD Ot 397.0 TRICUSPID VALVE DISEASE 04/09/2016 ADILENE PANDYA MD Ot 424.0 MITRAL VALVE DISORDER 04/09/2016 ADILENE PANDYA MD Ot 425.4 PRIM CARDIOMYOPATHY NEC 04/09/2016 ADILENE PANDYA MD Ot 428.0 CONGESTIVE HEART FAILURE NOS 04/09/2016 ADILENE PANDYA MD Ot 782.3 EDEMA 04/09/2016 ADILENE PANDYA MD Ot 174.9 MALIGN NEOPL BREAST NOS 04/09/2016 ADILENE PANDYA MD Ot 425.4 PRIM CARDIOMYOPATHY NEC 04/09/2016 ADILENE PANDYA MD Ot 428.0 CONGESTIVE HEART FAILURE NOS 04/09/2016 ADILENE PANDYA MD Ot 782.3 EDEMA 04/09/2016 TOMMY SCOTT MD Ot 729.1 MYALGIA AND MYOSITIS NOS 04/09/2016 TOMMY SCOTT MD Ot 780.79 OTH MALAISE FATIGUE 04/09/2016 TOMMY SCOTT MD Ot 783.1 ABNORMAL WEIGHT GAIN 04/09/2016 ARNULFO RADER MD Ot 174.9 MALIGN NEOPL BREAST NOS 04/09/2016 ARNULFO RADER MD Ot 429.1 MYOCARDIAL DEGENERATION 04/09/2016 Ot 174.9 MALIGN NEOPL BREAST NOS 04/09/2016 Ot 428.0 CONGESTIVE HEART FAILURE NOS 04/09/2016 ARNULFO RADER MD Ot V58.69 OTH MED,LT,CURRENT USE 04/09/2016 ARNULFO RADER MD Ot V58.83 ENCOUNTER FOR THERAPEUTIC DRUG MONITORIN 04/09/2016 ARNULFO RADER MD Ot V58.69 OTH MED,LT,CURRENT USE 04/09/2016 ARNULFO RADER MD Ot V58.83 ENCOUNTER FOR THERAPEUTIC DRUG MONITORIN 04/09/2016 ARNULFO RADER MD Ot 174.9 MALIGN NEOPL BREAST NOS 04/09/2016 NACHO HARRIS DO Ot 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 04/09/2016 NACHO HARRIS DO Ot Z01.818 ENCOUNTER FOR OTHER PREPROCEDURAL EXAMIN 04/09/2016 NACHO HARRIS DO Ot Z11.2 ENCOUNTER FOR SCREENING FOR OTHER BACTER 04/09/2016 NACHO HARRIS DO Ot N93.9 ABNORMAL UTERINE AND VAGINAL BLEEDING, U 04/09/2016 NACHO HARRIS DO, Ot Z79.810 LNG TRM (CRNT) USE OF SLCTV ESTROG NET DEVELOPER CONTRACT 04/09/2016 ARNULFO RADER MD, Ot C50.412 MALIG NEOPLASM OF UPPER-OUTER QUADRANT O 04/09/2016 ARNULFO RADER MD, Ot Z51.81 ENCOUNTER FOR THERAPEUTIC DRUG LEVEL MON 04/09/2016 ARNULFO RADER MD, Ot Z79.899 OTHER RETIREMENT (CURRENT) DRUG THERAPY 04/09/2016 ARNULFO RADER MD, Ot C50.412 MALIG NEOPLASM OF UPPER-OUTER QUADRANT O 04/09/2016 ARNULFO RADER MD, Ot Z17.0 ESTROGEN RECEPTOR POSITIVE STATUS [ER+] 04/09/2016 ARNULFO RADER MD, Ot 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 04/09/2016 ADILENE PANDYA MD Ot E78.5 HYPERLIPIDEMIA, UNSPECIFIED 04/09/2016 ADILENE PANDYA MD Ot I50.9 HEART FAILURE, UNSPECIFIED 04/09/2016 ADILENE PANDYA MD Ot R06.02 SHORTNESS OF BREATH 04/09/2016 ADILENE PANDYA MD Ot R60.9 EDEMA, UNSPECIFIED 04/09/2016 ARNULFO RADER MD, Ot C50.412 MALIG NEOPLASM OF UPPER-OUTER QUADRANT O 04/09/2016 ARNULFO RADER MD, Ot Z17.0 ESTROGEN RECEPTOR POSITIVE STATUS [ER+] 04/09/2016 ARNULFO RADER MD, Ot Z79.899 OTHER RETIREMENT (CURRENT) DRUG THERAPY 04/11/2016 ARNULFO RADER MD, Ot C50.412 MALIG NEOPLASM OF UPPER-OUTER QUADRANT O 04/11/2016 ARNULFO RADER MD, Ot Z17.0 ESTROGEN RECEPTOR POSITIVE STATUS [ER+] 04/11/2016 ARNULFO RADER MD, Ot 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 04/20/2016 ADILENE PANDYA MD Ot E78.5 HYPERLIPIDEMIA, UNSPECIFIED 04/20/2016 ADILENE PANDYA MD Ot I50.9 HEART FAILURE, UNSPECIFIED 04/20/2016 ADILENE PANDYA MD Ot R06.02 SHORTNESS OF BREATH 04/20/2016 ADILENE PANDYA MD Ot R60.9 EDEMA, UNSPECIFIED 06/15/2016 ARNULFO RADER MD Ot C50.412 MALIG NEOPLASM OF UPPER-OUTER QUADRANT O 06/15/2016 ARNULFO RADER MD Ot Z17.0 ESTROGEN RECEPTOR POSITIVE STATUS [ER+] 06/15/2016 ARNULFO RADER MD Ot Z79.899 OTHER RETIREMENT (CURRENT) DRUG THERAPY 06/28/2016 ARNULFO RADER MD Ot C50.412 MALIG NEOPLASM OF UPPER-OUTER QUADRANT O 06/28/2016 ARNULFO RADER MD Ot Z17.0 ESTROGEN RECEPTOR POSITIVE STATUS [ER+] 06/28/2016 ARNULFO RADER MD Ot Z79.899 OTHER RETIREMENT (CURRENT) DRUG THERAPY 07/10/2016 ARNULFO RADER MD Ot 174.9 MALIGN NEOPL BREAST NOS 07/10/2016 ARNULFO RADRE MD Ot 174.9 MALIGN NEOPL BREAST NOS 07/10/2016 ARNULFO RADER MD Ot V58.69 OTH MED,LT,CURRENT USE 07/10/2016 JACK DÍAZ MD Ot 174.9 MALIGN NEOPL BREAST NOS 07/10/2016 JACK DÍAZ MD Ot V72.84 EXAM PRE-OPERATIVE NOS 07/10/2016 JACK DÍAZ MD Ot V74.8 SCREEN-BACTERIAL DIS NEC 07/10/2016 STEPHANIE PENA CABINETMAKER APPRENTICE Ot 174.9 MALIGN NEOPL BREAST NOS 07/10/2016 STEPHANIE PENA CABINETMAKER APPRENTICE Ot V58.69 OTH MED,LT,CURRENT USE 07/10/2016 STEPHANIE PENA CABINETMAKER APPRENTICE Ot 174.9 MALIGN NEOPL BREAST NOS 07/10/2016 STEPHANIE PENA CABINETMAKER APPRENTICE Ot V58.69 OTH MED,LT,CURRENT USE 07/10/2016 STEPHANIE PENA CABINETMAKER APPRENTICE Ot V86.0 ESTROGEN RECEPTOR POSITIVE STATUS [ER+] 07/10/2016 ARNULFO RADER MD Ot 174.9 MALIGN NEOPL BREAST NOS 07/10/2016 ARNULFO RADER MD Ot V58.69 OTH MED,LT,CURRENT USE 07/10/2016 ARNULFO RADER MD Ot 174.9 MALIGN NEOPL BREAST NOS 07/10/2016 ARNULFO RADER MD Ot V58.69 OTH MED,LT,CURRENT USE 07/10/2016 ARNULFO RADER MD Ot V58.83 ENCOUNTER FOR THERAPEUTIC DRUG MONITORIN 07/10/2016 ARNULFO RADER MD Ot V87.41 PERSONAL HISTORY OF ANTINEOPLASTIC CHEMO 07/10/2016 ARNULFO RADER MD Ot 174.9 MALIGN NEOPL BREAST NOS 07/10/2016 ARNULFO RADER MD Ot V58.69 OTH MED,LT,CURRENT USE 07/10/2016 ARNULFO RADER MD Ot V58.83 ENCOUNTER FOR THERAPEUTIC DRUG MONITORIN 07/10/2016 ARNULFO RADER MD Ot V67.2 CHEMOTHERAPY FOLLOW-UP 07/10/2016 ARNULFO RADER MD Ot 174.9 MALIGN NEOPL BREAST NOS 07/10/2016 ARNULFO RADER MD Ot V67.2 CHEMOTHERAPY FOLLOW-UP 07/10/2016 ARNULFO RADER MD Ot 174.9 MALIGN NEOPL BREAST NOS 07/10/2016 ARNULFO RADER MD, Ot V58.69 OTH MED,LT,CURRENT USE 07/10/2016 ARNULFO RADER MD Ot V58.83 ENCOUNTER FOR THERAPEUTIC DRUG MONITORIN 07/10/2016 ARNULFO RADER MD Ot V87.41 PERSONAL HISTORY OF ANTINEOPLASTIC CHEMO 07/10/2016 ARNULFO RADER MD Ot 174.9 MALIGN NEOPL BREAST NOS 07/10/2016 ARNULFO RADER MD Ot 429.1 MYOCARDIAL DEGENERATION 07/10/2016 ARNULFO RADER MD Ot V58.69 OTH MED,LT,CURRENT USE 07/10/2016 ARNULFO RADER MD Ot V58.83 ENCOUNTER FOR THERAPEUTIC DRUG MONITORIN 07/10/2016 ARNULFO RADER MD Ot V87.41 PERSONAL HISTORY OF ANTINEOPLASTIC CHEMO 07/10/2016 ADILENE PANDYA MD Ot 174.9 MALIGN NEOPL BREAST NOS 07/10/2016 ADILENE PANDYA MD Ot 397.0 TRICUSPID VALVE DISEASE 07/10/2016 ADILENE PANDYA MD Ot 424.0 MITRAL VALVE DISORDER 07/10/2016 ADILENE PANDYA MD Ot 425.4 PRIM CARDIOMYOPATHY NEC 07/10/2016 ADILENE PANDYA MD Ot 428.0 CONGESTIVE HEART FAILURE NOS 07/10/2016 ADILENE PANDYA MD Ot 782.3 EDEMA 07/10/2016 ADILENE PANDYA MD Ot 174.9 MALIGN NEOPL BREAST NOS 07/10/2016 ADILENE PANDYA MD Ot 425.4 PRIM CARDIOMYOPATHY NEC 07/10/2016 ADILENE PANDYA MD Ot 428.0 CONGESTIVE HEART FAILURE NOS 07/10/2016 ADILENE PANDYA MD Ot 782.3 EDEMA 07/10/2016 SONIA JARAMILLO, TOMMY Taylor Ot 729.1 MYALGIA AND MYOSITIS NOS 07/10/2016 TOMMY SCOTT MD Ot 780.79 OTH MALAISE FATIGUE 07/10/2016 TOMMY SCOTT MD Ot 783.1 ABNORMAL WEIGHT GAIN 07/10/2016 ARNULFO RADER MD Ot 174.9 MALIGN NEOPL BREAST NOS 07/10/2016 ARNULFO RADER MD Ot 429.1 MYOCARDIAL DEGENERATION 07/10/2016 Ot 174.9 MALIGN NEOPL BREAST NOS 07/10/2016 Ot 428.0 CONGESTIVE HEART FAILURE NOS 07/10/2016 ARNULFO RADER MD Ot V58.69 OTH MED,LT,CURRENT USE 07/10/2016 ARNULFO RADER MD Ot V58.83 ENCOUNTER FOR THERAPEUTIC DRUG MONITORIN 07/10/2016 ARNULFO RADER MD, Ot V58.69 OTH MED,LT,CURRENT USE 07/10/2016 ARNULFO RADER MD Ot V58.83 ENCOUNTER FOR THERAPEUTIC DRUG MONITORIN 07/10/2016 ARNULFO RDAER MD Ot 174.9 MALIGN NEOPL BREAST NOS 07/10/2016 NACHO HARRIS DO Ot 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 07/10/2016 NACHO HARRIS DO Ot Z01.818 ENCOUNTER FOR OTHER PREPROCEDURAL EXAMIN 07/10/2016 NACHO HARRIS DO Ot Z11.2 ENCOUNTER FOR SCREENING FOR OTHER BACTER 07/10/2016 NACHO HARRIS DO Ot N93.9 ABNORMAL UTERINE AND VAGINAL BLEEDING, U 07/10/2016 NACHO HARRIS DO Ot Z79.810 LNG TRM (CRNT) USE OF SLCTV ESTROG NET DEVELOPER CONTRACT 07/10/2016 ARNULFO RADER MD Ot C50.412 MALIG NEOPLASM OF UPPER-OUTER QUADRANT O 07/10/2016 ARNULFO RADER MD Ot Z51.81 ENCOUNTER FOR THERAPEUTIC DRUG LEVEL MON 07/10/2016 ARNULFO RADER MD Ot 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 07/10/2016 ADILENE PANDYA MD Ot E78.5 HYPERLIPIDEMIA, UNSPECIFIED 07/10/2016 ADILENE PANDYA MD Ot I50.9 HEART FAILURE, UNSPECIFIED 07/10/2016 ADILENE PANDYA MD Ot R06.02 SHORTNESS OF BREATH 07/10/2016 ADILENE PANDYA MD Ot R60.9 EDEMA, UNSPECIFIED 07/10/2016 ARNULFO RADER MD, Ot C50.412 MALIG NEOPLASM OF UPPER-OUTER QUADRANT O 07/10/2016 ARNLUFO RADER MD, Ot Z17.0 ESTROGEN RECEPTOR POSITIVE STATUS [ER+] 07/10/2016 ARNULFO RADER MD, Ot Z79.899 OTHER RETIREMENT (CURRENT) DRUG THERAPY 07/11/2016 ARNULFO RADER MD, Ot C50.412 MALIG NEOPLASM OF UPPER-OUTER QUADRANT O 07/11/2016 ARNULFO RADER MD, Ot I51.5 MYOCARDIAL DEGENERATION 07/18/2016 ARNULFO RADER MD, Ot C50.412 MALIG NEOPLASM OF UPPER-OUTER QUADRANT O 07/18/2016 ARNULFO RADER MD, Ot Z17.0 ESTROGEN RECEPTOR POSITIVE STATUS [ER+] 07/18/2016 ARNULFO RADER MD, Ot 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 07/20/2016 ARNULFO RADER MD, Ot C50.412 MALIG NEOPLASM OF UPPER-OUTER QUADRANT O 07/20/2016 ARNULFO RADER MD, Ot Z17.0 ESTROGEN RECEPTOR POSITIVE STATUS [ER+] 07/20/2016 ARNULFO RADER MD, Ot Z79.899 OTHER RETIREMENT (CURRENT) DRUG THERAPY 07/25/2016 ARNULFO RADER MD, Ot C50.412 MALIG NEOPLASM OF UPPER-OUTER QUADRANT O 07/25/2016 ARNULFO RADER MD, Ot I51.5 MYOCARDIAL DEGENERATION 08/15/2016 ARNULFO RADER MD, Ot C50.412 MALIG NEOPLASM OF UPPER-OUTER QUADRANT O 08/15/2016 ARNULFO RADER MD, Ot Z17.0 ESTROGEN RECEPTOR POSITIVE STATUS [ER+] 08/15/2016 ARNULFO RADER MD, Ot 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 10/17/2016 ARNULFO RADER MD, Ot C50.412 MALIG NEOPLASM OF UPPER-OUTER QUADRANT O 10/17/2016 ARNULFO RADER MD, Ot Z17.0 ESTROGEN RECEPTOR POSITIVE STATUS [ER+] 10/17/2016 ARNULFO RADER MD, Ot Z79.899 OTHER RETIREMENT (CURRENT) DRUG THERAPY 10/18/2016 ARNULFO RADER MD, Ot C50.412 MALIG NEOPLASM OF UPPER-OUTER QUADRANT O 10/18/2016 ARNULFO RADER MD, Ot Z17.0 ESTROGEN RECEPTOR POSITIVE STATUS [ER+] 10/18/2016 ARNULFO RADER MD, Ot 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 11/08/2016 PRASANTH JARAMILLO, ARNULFO Cerda Ot C50.412 MALIG NEOPLASM OF UPPER-OUTER QUADRANT O 11/08/2016 ARNULFO RADER MD Ot Z17.0 ESTROGEN RECEPTOR POSITIVE STATUS [ER+] 11/08/2016 ARNULFO RADER MD, Ot Z79.899 OTHER RETIREMENT (CURRENT) DRUG THERAPY 11/09/2016 ARNULFO RADER MD Ot 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 11/09/2016 ARNULFO RADER MD Ot R51 HEADACHE 11/13/2016 ARNULFO RADER MD Ot 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 11/13/2016 ARNULFO RADER MD Ot R51 HEADACHE 11/16/2016 ARNULFO RADER MD, Ot 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 11/16/2016 ARNULFO RADER MD Ot M89.8X9 OTHER SPECIFIED DISORDERS OF BONE, UNSPE 11/21/2016 ARNULFO RADER MD, Ot 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 11/21/2016 ARNULFO RADER MD Ot M89.8X9 OTHER SPECIFIED DISORDERS OF BONE, UNSPE 12/06/2016 ARNULFO RADER MD Ot 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 12/06/2016 ARNULFO RADER MD, Ot R51 HEADACHE 12/10/2016 PRASANTH JARAMILLO, ARNULFO Cerda Ot C50.412 MALIG NEOPLASM OF UPPER-OUTER QUADRANT O 12/10/2016 ARNULFO RADER MD Ot Z17.0 ESTROGEN RECEPTOR POSITIVE STATUS [ER+] 12/10/2016 ANRULFO RADER MD, Ot 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 12/10/2016 ARNULFO RADER MD Ot 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 12/10/2016 ARNULFO RADER MD, Ot R51 HEADACHE 12/10/2016 ARNULFO RADER MD Ot 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 12/10/2016 ARNULFO RADER MD Ot M89.8X9 OTHER SPECIFIED DISORDERS OF BONE, UNSPE 12/12/2016 ARNULFO RADER MD Ot 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 12/12/2016 ARNULFO RADER MD Ot M89.8X9 OTHER SPECIFIED DISORDERS OF BONE, UNSPE 2016 SYLVIA BENDER Ot E78.2 MIXED HYPERLIPIDEMIA 2016 SYLVIA BENDER Ot I25.10 ATHSCL HEART DISEASE OF [place] CORONARY 2016 SYLVIA BENDER Ot I50.22 CHRONIC SYSTOLIC (CONGESTIVE) HEART FAIL 2016 SYLVIA BENDER Ot K21.9 GASTRO-ESOPHAGEAL REFLUX DISEASE WITHOUT 2016 SYLVIA BENDER Ot E78.2 MIXED HYPERLIPIDEMIA 2016 SYLVIA BENDER Ot I25.10 ATHSCL HEART DISEASE OF [place] CORONARY 2016 SYLVIA BENDER Ot I50.22 CHRONIC SYSTOLIC (CONGESTIVE) HEART FAIL 2016 SYLVIA BENDER Ot K21.9 GASTRO-ESOPHAGEAL REFLUX DISEASE WITHOUT 01/02/2017 ARNULFO RADER MD Ot C50.412 MALIG NEOPLASM OF UPPER-OUTER QUADRANT O 01/02/2017 ARNULFO RADER MD Ot Z17.0 ESTROGEN RECEPTOR POSITIVE STATUS [ER+] 01/02/2017 ARNULFO RADER MD Ot Z79.899 OTHER RETIREMENT (CURRENT) DRUG THERAPY 01/07/2017 SYLVIA BENDER Ot E78.2 MIXED HYPERLIPIDEMIA 01/07/2017 SYLVIA BENDER Ot I25.10 ATHSCL HEART DISEASE OF [place] CORONARY 01/07/2017 SYLVIA BENDER Ot I50.22 CHRONIC SYSTOLIC (CONGESTIVE) HEART FAIL 01/07/2017 SYLVIA BENDER Ot K21.9 GASTRO-ESOPHAGEAL REFLUX DISEASE WITHOUT 01/09/2017 SYLVIA BENDER Ot E78.2 MIXED HYPERLIPIDEMIA 01/09/2017 SYLVIA BENDER Ot I25.10 ATHSCL HEART DISEASE OF [place] CORONARY 01/09/2017 SYLVIA BENDER Ot I50.22 CHRONIC SYSTOLIC (CONGESTIVE) HEART FAIL 01/09/2017 SYLVIA BENDER Ot K21.9 GASTRO-ESOPHAGEAL REFLUX DISEASE WITHOUT 01/30/2017 SYLVIA BENDER Ot E78.2 MIXED HYPERLIPIDEMIA 01/30/2017 ANNAMARIE DUMONT SYLVIA K Ot I25.10 ATHSCL HEART DISEASE OF [place] CORONARY 01/30/2017 SYLVIA BENDER Ot I50.22 CHRONIC SYSTOLIC (CONGESTIVE) HEART FAIL 01/30/2017 SYLVIA BENDER Ot K21.9 GASTRO-ESOPHAGEAL REFLUX DISEASE WITHOUT 02/05/2017 ARNULFO RADER MD, Ot C50.412 MALIG NEOPLASM OF UPPER-OUTER QUADRANT O 02/05/2017 ARNULFO RADER MD Ot Z17.0 ESTROGEN RECEPTOR POSITIVE STATUS [ER+] 02/05/2017 ARNULFO RADER MD, Ot Z79.899 OTHER RETIREMENT (CURRENT) DRUG THERAPY 03/10/2017 SYLVIA BENDER Ot E78.2 MIXED HYPERLIPIDEMIA 03/10/2017 SYLVIA BENDER Ot I25.10 ATHSCL HEART DISEASE OF [place] CORONARY 03/10/2017 SYLVIA BENDER Ot I50.22 CHRONIC SYSTOLIC (CONGESTIVE) HEART FAIL 03/10/2017 SYLVIA BENDER Ot K21.9 GASTRO-ESOPHAGEAL REFLUX DISEASE WITHOUT 01/03/2018 SYLVIA BENDER Ot E78.2 MIXED HYPERLIPIDEMIA 01/03/2018 SYLVIA BENDER Ot I25.10 ATHSCL HEART DISEASE OF [place] CORONARY 01/03/2018 SYLVIA BENDER Ot I50.22 CHRONIC SYSTOLIC (CONGESTIVE) HEART FAIL 01/03/2018 SYLVIA BENDER Ot K21.9 GASTRO-ESOPHAGEAL REFLUX DISEASE WITHOUT 01/03/2018 TE POZO MD, Ot C50.412 MALIG NEOPLASM OF UPPER-OUTER QUADRANT O 01/03/2018 TE POZO MD Ot C77.3 SEC AND UNSP MALIG NEOPLASM OF AXILLA AN 01/03/2018 TE POZO MD Ot D72.819 DECREASED WHITE BLOOD CELL COUNT, UNSPEC 01/03/2018 TE POZO MD Ot E66.01 MORBID (SEVERE) OBESITY DUE TO EXCESS CA 01/03/2018 TE POZO MD Ot I50.89 OTHER HEART FAILURE 01/03/2018 TE POZO MD Ot M19.012 PRIMARY OSTEOARTHRITIS, LEFT SHOULDER 01/03/2018 TE POZO MD, Ot M25.552 PAIN IN LEFT HIP 01/03/2018 TE POZO MD, Ot R11.2 NAUSEA WITH VOMITING, UNSPECIFIED 01/03/2018 TE POZO MD, Ot R51 HEADACHE 01/03/2018 TE POZO MD, Ot R53.83 OTHER FATIGUE 01/03/2018 TE POZO MD, Ot T45.1X5A ADVERSE EFFECT OF ANTINEOPLASTIC AND IMM 01/03/2018 TE POZO MD, Ot Z17.0 ESTROGEN RECEPTOR POSITIVE STATUS [ER+] 01/03/2018 TE POZO MD, Ot Z68.41 BODY MASS INDEX (BMI) 40.0-44.9, ADULT 01/03/2018 TE POZO MD, Ot 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 01/03/2018 TE POZO MD, Ot 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 01/03/2018 TE POZO MD, Ot Z90.11 ACQUIRED ABSENCE OF RIGHT BREAST AND NIP 01/03/2018 TE POZO MD, Ot Z90.13 ACQUIRED ABSENCE OF BILATERAL BREASTS AN 01/03/2018 TE POZO MD, Ot Z92.21 PERSONAL HISTORY OF ANTINEOPLASTIC CHEMO 01/03/2018 TE POZO MD, Ot Z92.3 PERSONAL HISTORY OF IRRADIATION 01/17/2018 TE POZO MD, Ot C50.412 MALIG NEOPLASM OF UPPER-OUTER QUADRANT O 01/17/2018 TE POZO MD, Ot M85.88 OTH DISRD OF BONE DENSITY AND STRUCTURE, 01/29/2018 TE POZO MD, Ot C50.412 MALIG NEOPLASM OF UPPER-OUTER QUADRANT O 01/29/2018 TE POZO MD, Ot C77.3 SEC AND UNSP MALIG NEOPLASM OF AXILLA AN 01/29/2018 TE POZO MD, Ot D72.819 DECREASED WHITE BLOOD CELL COUNT, UNSPEC 01/29/2018 TE POZO MD Ot E66.01 MORBID (SEVERE) OBESITY DUE TO EXCESS CA 01/29/2018 TE POZO MD Ot I50.89 OTHER HEART FAILURE 01/29/2018 TE POZO MD, Ot M19.012 PRIMARY OSTEOARTHRITIS, LEFT SHOULDER 01/29/2018 TE POZO MD, Ot M25.552 PAIN IN LEFT HIP 01/29/2018 SÁNCHEZ MD, TIWARI Ot R11.2 NAUSEA WITH VOMITING, UNSPECIFIED 01/29/2018 TE POZO MD Ot R51 HEADACHE 01/29/2018 TE POZO MD Ot R53.83 OTHER FATIGUE 01/29/2018 TE POZO MD, Ot T45.1X5A ADVERSE EFFECT OF ANTINEOPLASTIC AND IMM 01/29/2018 TE POZO MD Ot Z17.0 ESTROGEN RECEPTOR POSITIVE STATUS [ER+] 01/29/2018 TE POZO MD Ot Z68.41 BODY MASS INDEX (BMI) 40.0-44.9, ADULT 01/29/2018 TE POZO MD Ot Z79.811 RETIREMENT (CURRENT) USE OF AROMATASE INH 01/29/2018 TE POZO MD, Ot Z79.899 OTHER RETIREMENT (CURRENT) DRUG THERAPY 01/29/2018 TE POZO MD, Ot Z90.11 ACQUIRED ABSENCE OF RIGHT BREAST AND NIP 01/29/2018 TE POZO MD, Ot Z90.13 ACQUIRED ABSENCE OF BILATERAL BREASTS AN 01/29/2018 TE POZO MD, Ot Z92.21 PERSONAL HISTORY OF ANTINEOPLASTIC CHEMO 01/29/2018 TE POZO MD, Ot Z92.3 PERSONAL HISTORY OF IRRADIATION 01/29/2018 TE POZO MD Ot C50.412 MALIG NEOPLASM OF UPPER-OUTER QUADRANT O 01/29/2018 TE POZO MD Ot M85.88 OTH DISRD OF BONE DENSITY AND STRUCTURE, Procedures There is no data. Results There is no data. Encounters ACCT No. Visit Date/Time Discharge Status Pt. Type Provider Facility Loc./Unit Complaint [id number] 01/16/2018 11:12:00 01/16/2018 23:59:59 CLS Outpatient TE POZO MD [facility] RAD M89.8X9 BONE PAIN [id number] 01/10/2018 09:00:00 01/10/2018 23:59:59 CLS Preadmit SYLVIA BENDER [facility] CARD I25.10 CAD [id number] 12/27/2017 13:30:00 12/27/2017 23:59:59 CLS Outpatient TE POZO MD [facility] ONC [id number] 03/11/2017 08:00:00 03/11/2017 23:59:59 CLS Preadmit SYLVIA BENDER [facility] CAD,CHF,GERD, HLD [id number] 12/10/2016 07:56:00 03/10/2017 00:01:00 DIS Outpatient SYLVIA BENDER [facility] CAD,CHF,GERD ,HLD [id number] 11/22/2016 08:51:00 02/05/2017 00:01:00 DIS Outpatient ARNULFO RADER MD [facility] ONC [id number] 12/12/2016 08:46:00 12/12/2016 23:59:59 CLS Outpatient SYLVIA BENDER [facility] CAD,CHF,GERD ,HLD [id number] 11/15/2016 11:44:00 11/15/2016 23:59:59 CLS Outpatient ARNULFO RADER MD [facility] HEADACHES,BREAST CANCER , BONE PAIN [id number] 11/08/2016 16:36:00 11/08/2016 23:59:59 CLS Outpatient ARNULFO RADER MD [facility] RAD HEADACHE,BREAST CANCER [id number] 07/19/2016 13:14:00 10/17/2016 00:01:00 DIS Outpatient ARNULFO RADER MD [facility] ONC [id number] 04/19/2016 14:34:00 07/18/2016 13:07:00 DIS Outpatient ARNULFO RADER MD [facility] ONC [id number] 07/10/2016 13:29:00 07/10/2016 23:59:59 CLS Outpatient ARNULFO RADER MD [facility] DRUG RELATED HEART MUSCLE DISEASE, BREAST CA [id number] 01/12/2016 14:42:00 04/11/2016 09:17:00 DIS Outpatient ARNULFO RADER MD [facility] ONC [id number] 01/24/2016 07:50:00 01/24/2016 23:59:59 CLS Outpatient ADILENE PANDYA MD [facility] CARD CHF,EDEMA,HLD,SOB ON EXERTION [id number] 10/13/2015 14:03:00 11/09/2015 00:01:00 DIS Outpatient ARNULFO RADER MD [facility] ONC [id number] 09/13/2015 13:35:00 09/13/2015 23:59:59 CLS Outpatient ARNULFO RADER MD [facility] CARD CARDIOTOXIC CHEMO, BREAST CA [id number] 08/18/2015 06:00:00 08/19/2015 10:55:00 DIS Outpatient NACHO HARRIS DO [facility] SDC HX BREAST CANCER; TAMOXIFEN THERAPY [id number] 08/16/2015 11:13:00 08/16/2015 23:59:59 CLS Outpatient NACHO HARRIS DO [facility] RAD USE OF TAMOXIFEN [id number] 08/12/2015 09:42:00 08/12/2015 23:59:59 CLS Outpatient NACHO HARRIS DO [facility] PREOP HX BREAST CANCER; TAMOXIFEN THERAPY [id number] 07/27/2015 14:04:00 08/03/2015 00:01:00 DIS Outpatient ARNULFO RADER MD [facility] ONC [id number] 04/27/2015 13:53:00 06/01/2015 00:01:00 DIS Outpatient ARNULFO RADER MD [facility] ONC [id number] 04/05/2015 12:04:00 04/05/2015 23:59:59 CLS Outpatient ARNULFO RADER MD [facility] CARD BREAST CA [id number] 03/08/2015 13:34:00 03/08/2015 23:59:59 CLS Outpatient ARNULFO RADER MD [facility] CARD CARDIOTOXIC CHEMO [id number] 02/03/2015 14:33:00 02/22/2015 00:01:00 DIS Outpatient ARNULFO RADER MD [facility] ONC [id number] 02/02/2015 14:01:00 02/02/2015 23:59:59 CLS Outpatient ARNULFO RADER MD [facility] CARD BREAST CANCER [id number] 01/07/2015 08:07:00 01/07/2015 10:12:00 DIS Outpatient ARASELI SHEPPARD MD [facility] REHAB R ROTATOR CUFF SPRAIN [id number] 12/20/2014 08:05:00 12/20/2014 23:59:59 CLS Outpatient ARASELI SHEPPARD MD [facility] REHAB R ROTATOR CUFF SPRAIN [id number] 11/22/2014 13:33:00 11/22/2014 23:59:59 CLS Outpatient ARNULFO RADER MD [facility] CARD BREAST CANCER [id number] 10/26/2014 09:17:00 11/01/2014 00:01:00 DIS Outpatient ARNULFO RADER MD [facility] ONC [id number] 10/26/2014 09:42:00 10/26/2014 23:59:59 CLS Outpatient TOMMY SCOTT MD [facility] LAB OUTSIDE LABS [id number] 10/25/2014 12:38:00 10/25/2014 23:59:59 CLS Outpatient ARNULFO RADER MD [facility] CARD CARDIO TOXIC CHEMOTHERAPY [id number] 09/17/2014 09:17:00 09/17/2014 17:50:00 DIS Outpatient ADILENE PANDYA MD [facility] CATH ABNORMAL STRESS,CP,CHF [id number] 09/15/2014 13:33:00 09/15/2014 23:59:59 CLS Outpatient ADILENE PANDYA MD [facility] CARD CHF,BREAST CA,EDEMA [id number] 09/14/2014 11:54:00 09/14/2014 23:59:59 CLS Outpatient ADILENE PANDYA MD [facility] CARD CHF,BREAST CA [id number] 08/03/2014 13:35:00 08/03/2014 23:59:59 CLS Outpatient ARNULFO RADER MD [facility] BREAST CA,CARDIO TOXIC DRUGS [id number] 06/02/2014 14:16:00 07/06/2014 00:01:00 DIS Outpatient ARNULFO RADER MD [facility] ONC [id number] 06/18/2014 16:28:00 06/18/2014 23:59:59 CLS Outpatient ARNULFO RADER MD [facility] LABNPT [id number] 06/08/2014 12:36:00 06/08/2014 23:59:59 CLS Outpatient ARNULFO RADER MD [facility] CARD CHEMO F/U,CARDIO TOXIC CHEMOTHERAPY [id number] 05/19/2014 12:35:00 05/19/2014 23:59:59 CLS Outpatient ARNULFO RADER MD [facility] CARD CANCER OF BREAST CHEMOTHERAPY [id number] 04/07/2014 13:33:00 04/07/2014 23:59:59 CLS Outpatient ARNULFO RADER MD [facility] CARD BREAST CANCER,CHEMO [id number] 04/01/2014 16:05:00 04/04/2014 00:01:00 DIS Outpatient ARNULFO RADER MD [facility] ONC [id number] 03/10/2014 13:41:00 03/10/2014 23:59:59 CLS Outpatient STEPHANIE PENA CABINETMAKER APPRENTICE [facility] ONC [id number] 01/27/2014 09:47:00 01/27/2014 23:59:59 CLS Outpatient STEPHANIE PENA CABINETMAKER APPRENTICE [facility] ONC [id number] 01/13/2014 06:44:00 01/13/2014 16:20:00 DIS Outpatient JACK DÍAZ MD [facility] RAD BREAST CANCER [id number] 01/12/2014 07:12:00 01/12/2014 23:59:59 CLS Outpatient ARNULFO RADER MD [facility] RAD BREAST CA [id number] 01/11/2014 12:16:00 01/11/2014 23:59:59 CLS Outpatient JACK DÍAZ MD [facility] PREOP BREAST CANCER [id number] 01/06/2014 12:39:00 01/06/2014 23:59:59 CLS Outpatient ARNULFO RADER MD [facility] RAD BREAST CA [id number] 01/13/2015 12:49:00 Document Registration [email or web address] 08/16/2015 11:20:37 ACT Document Registration
[2018-04-03 19:10] VITALS: BP 139/86
[2018-04-03] MEDS ORDERED: CATHETER FLUSH 10 ML SYR IV PRN (20:15)
[2018-04-03] MEDS ORDERED: ONDANSETRON 4 MG/2 ML (SDV) Z0FRAN IV PRN (20:15)
[2018-04-03] MEDS: CATHETER FLUSH 10 ML SYR IV SCH (22:49)
[2018-04-04 00:45] VITALS: BP 118/74
[2018-04-04 04:31] VITALS: BP 100/66
[2018-04-04] MEDS: CATHETER FLUSH 10 ML SYR IV SCH ×2 (05:43→14:15)
[2018-04-04 05:57] LABS: CHOLESTEROL 185 MG/DL (< 200); HDL CHOLESTEROL 35 MG/DL (40-60); TRIGLYCERIDES 122 MG/DL (<150); VLDL CHOLESTEROL 24 MG/DL (5-40)
[2018-04-04 08:30] VITALS: BP 108/75
[2018-04-04] MEDS ORDERED: ASPIRIN 81 MG CHEW (CHILDREN'S ASA) PO SCH (09:00)
[2018-04-04] MEDS ORDERED: FESO4TAB PO (09:13)
[2018-04-04] MEDS ORDERED: ENAL2.5T PO (09:13)
[2018-04-04] MEDS ORDERED: CARV6.252 PO (09:13)
[2018-04-04] MEDS ORDERED: LORA0.5T PO (09:13)
[2018-04-04] MEDS ORDERED: LETR2.5T5 PO (09:13)
[2018-04-04] MEDS ORDERED: VENL75CA93 PO (09:13)
--- NOTE | 2018-04-04 09:37 | Short Stay Summary-Hospitalist ---
History of Present Illness HPI/Chief Complaint Pt is a 52yoCF with a PMH of breast cancer s/p chemo and radiation treatment who presented to the ER with CC of chest discomfort. She states it started on Saturday and then resolved on it's own. The same thing happened on Saturday but on Saturday it developed and she also felt SOB and had nausea. This persisted through so she called her nursing educator, Dr Crump, and her PCP, Dr Clarke's office and was advised to go to the ER for evaluation. She described the pain as a heaviness in the center of her chest. She was also dry heaving. She has a history of cardiomyopathy secondary to her breast cancer treatment as well. Source: patient Exam Limitations: no limitations Date Seen 04/04/18 Time Seen by Provider: 09:05 Attending Physician Shey Cotton MD PCP Laila Clarke MD Referring Physician Date of Admission April 03, 2018 at 18:43 Home Medications & Allergies Home Medications Reviewed patient Home Medication Reconciliation performed by pharmacy medication reconciliations certified pharmacy technician and/or nursing. Patients Allergies have been reviewed. Allergies Allergies Coded Allergies codeine (Verified Allergy, Mild, UPSET STOMACH, 08/12/15) Past Aqusvpo-Eualvh-Yvdmjg Hx Past Med/Social Hx: Reviewed Nursing Past Med/Soc Hx Patient Social History Alcohol Use: Denies Use Recreational Drug Use: No Smoking Status: Never a Smoker Physical Abuse Screen: No Sexual Abuse: No Recent Foreign Travel: No Contact w/other who traveled: No Recent Hopitalizations: No Recent Infectious Disease Expo: No Seasonal Allergies Seasonal Allergies: No Past Medical History Surgeries: Gallbladder, Lumpectomy masectomy and reconstruction Cardiac: Cardiomyopathy, Hypertension : No Reproductive: No Sexually Transmitted Disease: No HIV/AIDS: No Female Reproductive Disorders: Denies Loss of Vision: Bilateral Hearing Impairment: Denies Cancer: Breast Did You Recieve Any Treatments: Yes What Type of Treatment Did You: Chemotherapy, Radiation, Surgical Intervention Psychosocial: Depression History of Blood Disorders: No Adverse Reaction to Blood [place]: No Family History Arthritis 19 FATHER, Onset:Unknown 19 MOTHER, Onset:Unknown Epilepsy G8 SISTER, Onset:Unknown FH: breast cancer in first degree relative 19 MOTHER, Onset:Unknown FH: hyperthyroidism 19 MOTHER, Onset:Unknown FHx: atrial fibrillation G8 SISTER, Onset:Unknown FHx: lung cancer 19 FATHER, Onset:Unknown Myocardial infarction G8 SISTER, Onset:Unknown Neoplasm G8 BROTHER, Onset:Unknown Tuberculosis 19 MOTHER, Onset:Childhood Heart Disease Review of Systems Constitutional: No chills, No fever EENTM: No blurred vision, No double vision, No nose congestion, No throat pain Respiratory: No cough, No dyspnea on exertion; short of breath Cardiovascular: chest pain; No edema; palpitations; No syncope Gastrointestinal: No abdominal pain, No constipation, No diarrhea; nausea; No vomiting Genitourinary: No dysuria, No frequency Musculoskeletal: No joint pain, No muscle pain Skin: No hx of skin cancer, No lesions, No rash Psychiatric/Neurological: Denies Headache, Denies Numbness, Denies Tingling All Other Systems Reviewed Negative Unless Noted: Yes Physical Exam Physical Exam Vital Signs Vital Signs - First Documented 04/03/18 04/03/18 16:38 18:59 Temp 98.0 Pulse 76 Resp 18 B/P (MAP) 151/86 (107) Pulse Ox 99 O2 Delivery Room Air Capillary Refill : Less Than 3 Seconds General Appearance: No Apparent Distress, WD/WN HEENT: PERRL/EOMI, Moist Mucous Membranes; No Scleral Icterus (L), No Scleral Icterus (R) Neck: Non Tender, Supple Respiratory: Lungs Clear, No Respiratory Distress Cardiovascular: Regular Rate, Rhythm, No Murmur Gastrointestinal: Normal Bowel Sounds, Non Tender, Soft Extremity: Normal Capillary Refill, No Calf Tenderness Neurologic/Psychiatric: Alert, Oriented x3, Normal Mood/Affect Skin: Normal Color, Warm/Dry Results Results/Procedures Labs Laboratory Tests 04/03/18 16:49 Patient resulted labs reviewed. Imaging: Reviewed Imaging Report Imaging Date of Exam: 04/03/18 CHEST 1 VIEW, AP/PA ONLY Portable erect AP chest at 4:58 p.m. INDICATION: Chest tightness. FINDINGS: The heart size is within normal limits and stable when compared to 01/24/16. The lungs are clear. There is no sign of failure, pneumonia or pleural effusion to suggest an acute abnormality. The mediastinum is not widened. The osseous structures are intact. As noted on the prior exam, there are numerous surgical clips overlying each side of the thorax. IMPRESSION: There is no evidence for an acute cardiopulmonary abnormality. Short Stay Diagnosis Discharge Diagnosis-Short Stay Admission Diagnosis Chest pain Final Discharge Diagnosis Chest pain Conclusion Plan see below Diagnosis/Problems Diagnosis/Problems (1) Chest pain Status: Acute Assessment & Plan: Troponins negative x3 Cardiology consulted, appreciate recs Discussed with Dr Crump and given history of radiation and chemo higher risk so will undergo stress testing Stress echo done and negative with EF at 40% (which is her baseline) Deemed safe for DC Advised to follow up with Dr Crump as schedule and with Dr Clarke in 1 week Qualifiers: Qualified Codes: R07.9 - Chest pain, unspecified Clinical Quality Measures AMI/AHF: ASA po Prior to arrival: No DVT/VTE Risk/Contraindication: Risk Factor Score Per Nursin RFS Level Per Nursing on Admit: 2=Moderate SHEY COTTON MD Apr 04, 2018 9:36 am
--- NOTE | 2018-04-04 09:38 | Discharge Inst-Simple/Standard ---
Discharge Inst-Standard Patient Instructions/Follow Up Plan of Care/Instructions/FU: Please continue to take your medications as written and follow up as scheduled. Activity as Tolerated: Yes Discharge Diet: Cardiac Diet Return to The Hospital For: Chest pain, SOB, palpitations, or if you feel you are getting worse. SHEY ANDRADE MD Apr 04, 2018 09:38
--- NOTE | 2018-04-04 10:59 | Consultation-Cardiology ---
HPI-Cardiology Cardiology Consultation Date of Consultation 04/04/18 Date of Admission Time Seen by Provider: 10:57 Indication: Chest pain HPI 52 years old lady with history of nonischemic cardiomyopathy, palpitation and chest pain. Was doing well until earlier this week when she started having recurrent episode of chest pain described as dull achiness on the left side of her chest with exertion associated with palpitation, became more frequent until last night when she came to the emergency room. Her symptoms were worse, she was having more persistent chest pressure that has responded to sublingual nitroglycerin, cardiac enzymes and EKG were normal Home Medications & Allergies Allergies: Coded Allergies: codeine (Verified Allergy, Mild, UPSET STOMACH, 08/12/15) Home Medication List Reviewed: Yes CAU-Fbgwri-Wizpgr Hx Patient Social History Marital Status: Alcohol Use: Denies Use Recreational Drug Use: No Smoking Status: Never a Smoker Recent Foreign Travel: No Recent Infectious Disease Expo: No Recent Hopitalizations: No Physical Abuse Screen: No Sexual Abuse: No Past Medical History Past medical history as discussed below Family Medical History Family History: Arthritis 19 FATHER, Onset:Unknown 19 MOTHER, Onset:Unknown Epilepsy G8 SISTER, Onset:Unknown FH: breast cancer in first degree relative 19 MOTHER, Onset:Unknown FH: hyperthyroidism 19 MOTHER, Onset:Unknown FHx: atrial fibrillation G8 SISTER, Onset:Unknown FHx: lung cancer 19 FATHER, Onset:Unknown Myocardial infarction G8 SISTER, Onset:Unknown Neoplasm G8 BROTHER, Onset:Unknown Tuberculosis 19 MOTHER, Onset:Childhood Constitutional: no symptoms reported, see HPI EENTM: see HPI, no symptoms reported Respiratory: no symptoms reported, see HPI, dyspnea on exertion Cardiovascular: see HPI, chest pain; No edema, No Hx of Intervention; palpitations; No syncope, No vascular heart diseas, No other Gastrointestinal: see HPI, nausea Genitourinary: no symptoms reported, see HPI Musculoskeletal: no symptoms reported, see HPI Skin: no symptoms reported, see HPI Psychiatric/Neurological: No Symptoms Reported, See HPI Reviewed Test Results Reviewed Test Results Lab Laboratory Tests Test 04/03/18 16:49 04/03/18 23:00 04/04/18 05:20 Range/Units White Blood Count 5.5 4.3-11.0 10^3/uL Red Blood Count 4.22 L 4.35-5.85 10^6/uL Hemoglobin 12.8 11.5-16.0 G/DL Hematocrit 38 35-52 % Mean Corpuscular Volume 91 80-99 FL Mean Corpuscular Hemoglobin 30 25-34 PG Mean Corpuscular Hemoglobin Concent 34 32-36 G/DL Red Cell Distribution Width 14.3 10.0-14.5 % Platelet Count 266 130-400 10^3/uL Mean Platelet Volume 9.8 7.4-10.4 FL Neutrophils (%) (Auto) 57 42-75 % Lymphocytes (%) (Auto) 36 12-44 % Monocytes (%) (Auto) 6 0-12 % Eosinophils (%) (Auto) 2 0-10 % Basophils (%) (Auto) 0 0-10 % Neutrophils # (Auto) 3.1 1.8-7.8 X 10^3 Lymphocytes # (Auto) 2.0 1.0-4.0 X 10^3 Monocytes # (Auto) 0.3 0.0-1.0 X 10^3 Eosinophils # (Auto) 0.1 0.0-0.3 10^3/uL Basophils # (Auto) 0.0 0.0-0.1 10^3/uL Prothrombin Time 12.8 12.2-14.7 SEC INR Comment 1.0 0.8-1.4 Activated Partial Thromboplast Time 26 24-35 SEC D-Dimer 0.49 0.00-0.49 UG/ML Sodium Level 138 135-145 MMOL/L Potassium Level 3.8 3.6-5.0 MMOL/L Chloride Level 106 98-107 MMOL/L Carbon Dioxide Level 22 21-32 MMOL/L Anion Gap 10 5-14 MMOL/L Blood Urea Nitrogen 10 7-18 MG/DL Creatinine 0.84 0.60-1.30 MG/DL Estimat Glomerular Filtration Rate > 60 BUN/Creatinine Ratio 12 Glucose Level 89 70-105 MG/DL Calcium Level 9.3 8.5-10.1 MG/DL Magnesium Level 2.0 1.8-2.4 MG/DL Total Bilirubin 0.3 0.1-1.0 MG/DL Aspartate Amino Transf (AST/SGOT) 16 5-34 U/L Alanine Aminotransferase (ALT/SGPT) 13 0-55 U/L Alkaline Phosphatase 112 40-136 U/L Myoglobin 30.1 10.0-92.0 NG/ML Troponin I < 0.30 < 0.30 < 0.30 <0.30 NG/ML B-Type Natriuretic Peptide 81.3 <100.0 PG/ML Total Protein 7.5 6.4-8.2 GM/DL Albumin 4.2 3.2-4.5 GM/DL Triglycerides Level 122 <150 MG/DL Cholesterol Level 185 < 200 MG/DL LDL Cholesterol Direct 127 1-129 MG/DL VLDL Cholesterol 24 5-40 MG/DL HDL Cholesterol 35 L 40-60 MG/DL Physical Exam Vital Signs Vital Signs - First Documented 04/03/18 04/03/18 16:38 18:59 Temp 98.0 Pulse 76 Resp 18 B/P (MAP) 151/86 (107) Pulse Ox 99 O2 Delivery Room Air Capillary Refill : Less Than 3 Seconds General Appearance: No Apparent Distress, WD/WN Eyes: Bilateral Eye Normal Inspection, Bilateral Eye PERRL, Bilateral Eye EOMI HEENT: PERRL/EOMI, TMs Normal, Normal ENT Inspection, Pharynx Normal Neck: Full Range of Motion, Normal Inspection, Non Tender, Supple, Carotid Bruit Respiratory: Chest Non Tender, Lungs Clear, Normal Breath Sounds, No Accessory Muscle Use, No Respiratory Distress Cardiovascular: Regular Rate, Rhythm, No Edema, No Gallop, No JVD, No Murmur, Normal Peripheral Pulses Gastrointestinal: Normal Bowel Sounds, No Organomegaly, No Pulsatile Mass, Non Tender, Soft Back: Normal Inspection, No CVA Tenderness, No Vertebral Tenderness Extremity: Normal Capillary Refill, Normal Inspection, Normal Range of Motion, Non Tender, No Calf Tenderness, No Pedal Edema Neurologic/Psychiatric: Alert, Oriented x3, No Motor/Sensory Deficits, Normal Mood/Affect Skin: Normal Color, Warm/Dry Lymphatic: No Adenopathy A/P-Cardiology Admission Diagnosis Chest pain nonspecific etiology Palpitation Coronary artery disease Hypertension Assessment/Plan Chest pain nonspecific etiology, atypical in presentation. Associated with palpitation. Responded to sublingual nitroglycerin, last stress test was done in December 2016, repeat exercise stress echo Congestive heart failure, cardiomyopathy secondary to Herceptin, most recent 2- D echocardiogram done December 2016 showing ejection fraction 40 percent, did not change compared to 2016. Maintained on enalapril and Coreg, reevaluate 2-D echo Recurrent palpitation, had a Holter monitor showed sinus rhythm with sinus tachycardia and occasional APCs, unable to tolerate higher dose of Coreg secondary to dizziness. Nonobstructive coronary artery disease per cardiac catheterization September 17, 2014. Continue to monitor. , Planning to restart home medication monitor blood pressure Dyspnea on exertion, continue to monitor. Reevaluate 2-D echocardiogram. Bilateral nonobstructive carotid artery stenosis, most recent carotid duplex done in December 2016, continue to monitor. Breast cancer,stage IIIa, followed and managed by [facility]. Received chemotherapy, sentinel lymph node biopsy. Peripheral edema, reporting improvement this time, I will continue to monitor. History of cholecystectomy in 2000, left shoulder surgery. Family history of heart disease, no known premature coronary artery disease or sudden cardiac . Clinical Quality Measures AMI/AHF: ASA po Prior to arrival: No DVT/VTE Risk/Contraindication: Risk Factor Score Per Nursin RFS Level Per Nursing on Admit: 2=Moderate ADILENE PANDYA MD Apr 04, 2018 10:59
[2018-04-04 12:30] VITALS: BP 113/78
== END 2018-04-04 13:07 | disposition home or self-care (01) ==
LOC: EDUNIT# 16:36 → ER 16:37 → UNDOADMOB 18:43 → 4TH 18:43 → UNDODISOB 04-04 14:20
PROVIDERS: ADMIT Family Medicine; ATTEND Family Medicine
DX: R07.9 Chest pain, unspecified (principal); Z85.3 Personal history of malignant neoplasm of breast; Z92.21 Personal history of antineoplastic chemotherapy; Z92.3 Personal history of irradiation; I42.9 Cardiomyopathy, unspecified; I10 Essential (primary) hypertension; F32.9 Major depressive disorder, single episode, unspecified; R00.2 Palpitations; I25.10 Atherosclerotic heart disease of native coronary artery without angina pectoris; R06.00 Dyspnea, unspecified; I65.23 Occlusion and stenosis of bilateral carotid arteries; R60.0 Localized edema; Z82.49 Family history of ischemic heart disease and other diseases of the circulatory system
CPT/HCPCS: 36415; 71045; 80053; 80061; 83735; 83874; 83880; 84484; 85025; 85379; 85610; 85730; 93005; 93041; 93306; G0378

== ENCOUNTER 2018-06-27 12:58 | Outpatient (RCR) | payer OTHER ==
[~2018-06-27 12:58] MED LIST changes: +CARV6.252 PO; +FESO4TAB PO; +LETR2.5T5 PO; +LORA0.5T PO; +VENL75CA93 PO
[2018-06-27 13:35] LABS: ALANINE AMINOTRANSFERASE 10 U/L (0-55); ALBUMIN 4.1 GM/DL (3.2-4.5); ALKALINE PHOSPHATASE 117 U/L (40-136); BASOPHILS % (AUTO) 0 % (0-10); BILIRUBIN,TOTAL 0.4 MG/DL (0.1-1.0); BUN/CREATININE RATIO 12; CALCIUM 9.4 MG/DL (8.5-10.1); CARBON DIOXIDE 27 MMOL/L (21-32); CHLORIDE 106 MMOL/L (98-107); CREATININE SERUM 0.89 MG/DL (0.60-1.30); EOSINOPHILS # (AUTO) 0.1 10^3/uL (0.0-0.3); EOSINOPHILS % (AUTO) 3 % (0-10); GFR ESTIMATED > 60; GLUCOSE 88 MG/DL (70-105); HEMATOCRIT 38 % (35-52); HEMOGLOBIN 12.4 G/DL (11.5-16.0); LYMPHOCYTES # (AUTO) 1.8 X 10^3 (1.0-4.0); LYMPHOCYTES % (AUTO) 32 % (12-44); MEAN CORPUSCULAR HEMOGLOBIN 31 PG (25-34); MEAN CORPUSCULAR HGB CONC 33 G/DL (32-36); MEAN CORPUSCULAR VOLUME 92 FL (80-99); MEAN PLATELET VOLUME 10.1 FL (7.4-10.4); MONOCYTES # (AUTO) 0.3 X 10^3 (0.0-1.0); MONOCYTES % (AUTO) 6 % (0-12); NEUTROPHILS # (AUTO) 3.3 X 10^3 (1.8-7.8); NEUTROPHILS % (AUTO) 59 % (42-75); PHOSPHORUS 3.3 MG/DL (2.3-4.7); PLATELET COUNT 242 10^3/uL (130-400); RED BLOOD COUNT 4.06 10^6/uL (4.35-5.85); RED CELL DISTRIBUTION WIDTH 13.8 % (10.0-14.5); SODIUM 141 MMOL/L (135-145); TOTAL PROTEIN 7.4 GM/DL (6.4-8.2); WHITE BLOOD COUNT 5.6 10^3/uL (4.3-11.0)
== END 2018-07-04 | disposition home or self-care (01) ==
LOC: ONC 12:58
PROVIDERS: ATTEND Internal Medicine Hematology & Oncology
DX: C50.412 Malignant neoplasm of upper-outer quadrant of left female breast (principal); C77.3 Secondary and unspecified malignant neoplasm of axilla and upper limb lymph nodes; D72.819 Decreased white blood cell count, unspecified; I50.89 Other heart failure; T45.1X5A Adverse effect of antineoplastic and immunosuppressive drugs, initial encounter; M19.012 Primary osteoarthritis, left shoulder; M25.552 Pain in left hip; R51 Headache; R53.83 Other fatigue; R11.2 Nausea with vomiting, unspecified; E66.01 Morbid (severe) obesity due to excess calories; Z68.41 Body mass index [BMI] 40.0-44.9, adult; Z17.0 Estrogen receptor positive status [ER+]; Z79.899 Other long term (current) drug therapy; Z79.811 Long term (current) use of aromatase inhibitors; Z90.13 Acquired absence of bilateral breasts and nipples; Z92.21 Personal history of antineoplastic chemotherapy; Z92.3 Personal history of irradiation
CPT/HCPCS: 36415; 80053; 82306; 84100; 85025; 99213

== ENCOUNTER → 2018-12-19 | Outpatient (CLI) | payer OTHER ==
--- NOTE | 2018-12-19 14:23 | Diagnostic Imaging Report ---
INDICATION: Left arm and shoulder blade pain. TIME OF EXAM: 2:04 PM FINDINGS: Two views of left humerus were obtained. Alignment at the shoulder and elbow appears normal. No fracture is seen. No osteolytic or blastic lesion is detected. There are multiple surgical clips in the left axilla. IMPRESSION: No acute abnormalities detected. Dictated by: Dictated on workstation # [id number]
--- NOTE | 2018-12-19 14:24 | Diagnostic Imaging Report ---
INDICATION: Left-sided shoulder blade pain. TIME OF EXAM: 02:03 p.m. Frontal and lateral views of thoracic spine are obtained. There is slight left convexity thoracic scoliotic curvature. Normal thoracic kyphotic curvature is noted. Vertebral body heights are maintained. No fracture is detected. Paraspinous line appears intact. IMPRESSION: Thoracic scoliosis. No acute bony abnormality is detected. Dictated by: Dictated on workstation # [id number]
== END ==
LOC: RAD 13:47
PROVIDERS: ATTEND Internal Medicine Hematology & Oncology
DX: M41.84 Other forms of scoliosis, thoracic region (principal); M79.622 Pain in left upper arm; M25.512 Pain in left shoulder
CPT/HCPCS: 72070; 73060

== ENCOUNTER → 2018-12-19 | Outpatient (CLI) | payer OTHER ==
[2018-12-19 13:05] LABS: BASOPHILS % (AUTO) 0 % (0-10); EOSINOPHILS # (AUTO) 0.1 10^3/uL (0.0-0.3); EOSINOPHILS % (AUTO) 2 % (0-10); HEMATOCRIT 40 % (35-52); HEMOGLOBIN 12.7 G/DL (11.5-16.0); LYMPHOCYTES # (AUTO) 1.8 X 10^3 (1.0-4.0); LYMPHOCYTES % (AUTO) 34 % (12-44); MEAN CORPUSCULAR HEMOGLOBIN 29 PG (25-34); MEAN CORPUSCULAR HGB CONC 32 G/DL (32-36); MEAN CORPUSCULAR VOLUME 91 FL (80-99); MEAN PLATELET VOLUME 9.4 FL (7.4-10.4); MONOCYTES # (AUTO) 0.3 X 10^3 (0.0-1.0); MONOCYTES % (AUTO) 5 % (0-12); NEUTROPHILS # (AUTO) 3.2 X 10^3 (1.8-7.8); NEUTROPHILS % (AUTO) 60 % (42-75); PLATELET COUNT 274 10^3/uL (130-400); RED CELL DISTRIBUTION WIDTH 13.5 % (10.0-14.5); WHITE BLOOD COUNT 5.4 10^3/uL (4.3-11.0)
[2018-12-19 13:26] LABS: ALANINE AMINOTRANSFERASE 9 U/L (0-55); ALBUMIN 4.2 GM/DL (3.2-4.5); ALKALINE PHOSPHATASE 136 U/L (40-136); BILIRUBIN,TOTAL 0.2 MG/DL (0.1-1.0); BUN/CREATININE RATIO 19; CALCIUM 9.6 MG/DL (8.5-10.1); CARBON DIOXIDE 25 MMOL/L (21-32); CHLORIDE 104 MMOL/L (98-107); CREATININE SERUM 0.83 MG/DL (0.60-1.30); GFR ESTIMATED > 60; GLUCOSE 89 MG/DL (70-105); SODIUM 138 MMOL/L (135-145)
== END ==
LOC: EDSTATUS 08-04 12:49 → ONC 12:50
PROVIDERS: ATTEND Internal Medicine Hematology & Oncology
DX: C50.412 Malignant neoplasm of upper-outer quadrant of left female breast (principal); C77.3 Secondary and unspecified malignant neoplasm of axilla and upper limb lymph nodes; D72.819 Decreased white blood cell count, unspecified; I50.89 Other heart failure; T45.1X5A Adverse effect of antineoplastic and immunosuppressive drugs, initial encounter; M19.012 Primary osteoarthritis, left shoulder; M25.552 Pain in left hip; R51 Headache; R53.83 Other fatigue; R11.2 Nausea with vomiting, unspecified; E66.01 Morbid (severe) obesity due to excess calories; Z68.41 Body mass index [BMI] 40.0-44.9, adult; Z17.0 Estrogen receptor positive status [ER+]; Z79.899 Other long term (current) drug therapy; Z79.811 Long term (current) use of aromatase inhibitors; Z90.13 Acquired absence of bilateral breasts and nipples; Z92.21 Personal history of antineoplastic chemotherapy; Z92.3 Personal history of irradiation
CPT/HCPCS: 36415; 80053; 85025; 99213

== ENCOUNTER → 2019-06-19 | Outpatient (CLI) | payer MEDICARE ==
[2019-06-19 12:59] LABS: BASOPHILS % (AUTO) 0 % (0-10); EOSINOPHILS # (AUTO) 0.1 10^3/uL (0.0-0.3); EOSINOPHILS % (AUTO) 2 % (0-10); HEMATOCRIT 38 % (35-52); HEMOGLOBIN 11.9 G/DL (11.5-16.0); LYMPHOCYTES % (AUTO) 34 % (12-44); MEAN CORPUSCULAR HEMOGLOBIN 29 PG (25-34); MEAN CORPUSCULAR HGB CONC 32 G/DL (32-36); MEAN CORPUSCULAR VOLUME 92 FL (80-99); MEAN PLATELET VOLUME 9.7 FL (7.4-10.4); MONOCYTES # (AUTO) 0.3 X 10^3 (0.0-1.0); MONOCYTES % (AUTO) 6 % (0-12); NEUTROPHILS # (AUTO) 3.4 X 10^3 (1.8-7.8); NEUTROPHILS % (AUTO) 58 % (42-75); PLATELET COUNT 235 10^3/uL (130-400); RED CELL DISTRIBUTION WIDTH 14.3 % (10.0-14.5); WHITE BLOOD COUNT 5.8 10^3/uL (4.3-11.0)
[2019-06-19 13:17] LABS: ALANINE AMINOTRANSFERASE 10 U/L (0-55); ALKALINE PHOSPHATASE 114 U/L (40-136); BILIRUBIN,TOTAL 0.2 MG/DL (0.1-1.0); BUN/CREATININE RATIO 16; CALCIUM 9.2 MG/DL (8.5-10.1); CARBON DIOXIDE 26 MMOL/L (21-32); CHLORIDE 104 MMOL/L (98-107); CREATININE SERUM 0.92 MG/DL (0.60-1.30); GFR ESTIMATED > 60; GLUCOSE 87 MG/DL (70-105); POTASSIUM 3.9 MMOL/L (3.6-5.0); SODIUM 139 MMOL/L (135-145); TOTAL PROTEIN 7.3 GM/DL (6.4-8.2)
== END ==
LOC: ONC 12:43
PROVIDERS: ATTEND Internal Medicine Hematology & Oncology
DX: C50.412 Malignant neoplasm of upper-outer quadrant of left female breast (principal); C77.3 Secondary and unspecified malignant neoplasm of axilla and upper limb lymph nodes; D72.819 Decreased white blood cell count, unspecified; I50.89 Other heart failure; M19.012 Primary osteoarthritis, left shoulder; M25.552 Pain in left hip; R53.83 Other fatigue; E66.01 Morbid (severe) obesity due to excess calories; Z68.41 Body mass index [BMI] 40.0-44.9, adult; Z17.0 Estrogen receptor positive status [ER+]; Z79.899 Other long term (current) drug therapy; Z79.811 Long term (current) use of aromatase inhibitors; Z90.13 Acquired absence of bilateral breasts and nipples; Z92.21 Personal history of antineoplastic chemotherapy; Z92.3 Personal history of irradiation
CPT/HCPCS: 36415; 80053; 85025; 99213

== ENCOUNTER → 2019-06-22 | Outpatient (CLI) | payer MEDICARE, OTHER | LOC: CARD 09:19 | PROVIDERS: ATTEND Internal Medicine Cardiovascular Disease | DX: I25.10 Atherosclerotic heart disease of native coronary artery without angina pectoris (principal); I50.9 Heart failure, unspecified; E78.5 Hyperlipidemia, unspecified | CPT/HCPCS: 93306 ==

== ENCOUNTER → 2019-12-08 | Outpatient (CLI) | payer MEDICARE ==
--- NOTE | 2019-12-08 10:20 | Diagnostic Imaging Report ---
INDICATION: Postmenopausal female. Family history of osteoporosis. COMPARISON: 01/16/2018. FINDINGS: AP Spine L2-L4: [BMD (g/cm2): 1.007] [T-Score: -1.6] [Z-Score: -2.0] [BMD Previous: 0.977] [BMD % Change: 3.1] LT Hip Neck: [BMD (g/cm2): 0.775] [T-Score: -1.9] [Z-Score: -1.6] LT Hip Total: [BMD (g/cm2):0.748] [T-Score:-2.1] [Z-Score: -2.2] [BMD Previous: 0.772] [BMD % Change: -3.1] RT Hip Neck: [BMD (g/cm2):0.768] [T-Score:-1.9] [Z-Score:-1.7] RT Hip Total: [BMD (g/cm2):0.720] [T-score:-2.3] [Z-Score:-2.5] [BMD Previous:0.735] [BMD % Change:-2.0] *Indicates significant change from prior examination based on 95% confidence level. World Health Organization criteria for BMD interpretation classify patients as Normal (T-score at or above -1.0), Osteopenic (T-score between -1.0 and -2.5) or Osteoporotic (T-score at or below -2.5). LIMITATIONS AND MODIFICATION: Degenerative changes and curvature of the lumbar spine may falsely elevate bone density. FRACTURE RISK (FRAX SCORE): The ten year probability of (%): Major Osteoporotic Fracture: [6.8] Hip Fracture: [0.7] IMPRESSION: 1. Osteopenia (Low bone mass). 2. No significant change in bone mineral density since prior examination. 3. See below National Osteoporosis Foundation guidelines on when to potentially initiate pharmacologic therapy. Based on the National Osteoporosis Foundation Guidelines, pharmacologic treatment should be initiated in any of the following, unless clinical conditions suggest otherwise: * Any patient with prior fragility fracture of the hip or vertebrae. A spine fracture indicates 5X risk for subsequent spine fracture and 2X risk for subsequent hip fracture. * Osteoporosis (T-score <-2.5). * Postmenopausal women and men age 50 and older with low bone mass/osteopenia (T-score between -1.0 and -2.5) by DXA and 10-year major osteoporotic fracture greater than 20% or a 10-year probability of hip fracture greater than 3%. These fracture risks are supplied above in the FRAX score, if applicable. * Clinician judgement and/or patient preferences may indicate treatment for people with 10-year fracture probabilities above or below these levels. Dictated by: Dictated on workstation # [id number]
== END ==
LOC: RAD 09:00
PROVIDERS: ATTEND Internal Medicine Hematology & Oncology
DX: M85.80 Other specified disorders of bone density and structure, unspecified site (principal); C50.412 Malignant neoplasm of upper-outer quadrant of left female breast; Z78.0 Asymptomatic menopausal state; Z79.811 Long term (current) use of aromatase inhibitors; Z82.62 Family history of osteoporosis
CPT/HCPCS: 77080

== ENCOUNTER 2019-12-18 11:34 | Outpatient (RCR) | payer MEDICARE ==
[~2019-12-18 11:34] MED LIST changes: -LETR2.5T5 PO; +LETR2.5T6 PO
== END 2020-03-17 | disposition home or self-care (01) ==
LOC: ONC 11:34
PROVIDERS: ATTEND Internal Medicine Hematology & Oncology
DX: C50.412 Malignant neoplasm of upper-outer quadrant of left female breast (principal); C77.3 Secondary and unspecified malignant neoplasm of axilla and upper limb lymph nodes; D72.819 Decreased white blood cell count, unspecified; I50.89 Other heart failure; M19.012 Primary osteoarthritis, left shoulder; M25.552 Pain in left hip; Z17.0 Estrogen receptor positive status [ER+]; Z79.899 Other long term (current) drug therapy; Z79.811 Long term (current) use of aromatase inhibitors; Z90.13 Acquired absence of bilateral breasts and nipples; Z92.21 Personal history of antineoplastic chemotherapy
CPT/HCPCS: 80053; 85025; 99213

== ENCOUNTER → 2019-12-25 | Outpatient (CLI) | payer MEDICARE ==
[2019-12-25 13:13] LABS: ALANINE AMINOTRANSFERASE 13 U/L (0-55); ALBUMIN 4.1 GM/DL (3.2-4.5); ALKALINE PHOSPHATASE 130 U/L (40-136); BILIRUBIN,TOTAL 0.4 MG/DL (0.1-1.0); BUN/CREATININE RATIO 19; CALCIUM 9.4 MG/DL (8.5-10.1); CARBON DIOXIDE 24 MMOL/L (21-32); CHLORIDE 105 MMOL/L (98-107); CHOLESTEROL 199 MG/DL (< 200); CREATININE SERUM 0.89 MG/DL (0.60-1.30); GFR ESTIMATED > 60; GLUCOSE 92 MG/DL (70-105); HDL CHOLESTEROL 42 MG/DL (40-60); SODIUM 140 MMOL/L (135-145); TOTAL PROTEIN 7.5 GM/DL (6.4-8.2); TRIGLYCERIDES 85 MG/DL (<150); VLDL CHOLESTEROL 17 MG/DL (5-40)
== END ==
LOC: LAB 12:40
PROVIDERS: ATTEND Physician Assistant
DX: I25.10 Atherosclerotic heart disease of native coronary artery without angina pectoris (principal); K21.9 Gastro-esophageal reflux disease without esophagitis; E78.5 Hyperlipidemia, unspecified; I50.9 Heart failure, unspecified
CPT/HCPCS: 36415; 80053; 80061

== ENCOUNTER → 2019-12-25 | Outpatient (CLI) | payer MEDICARE ==
[~2019-12-25] MED LIST changes: +CATHETER FLUSH 10 ML SYR IV PRN; +HOLD METFORMIN - RECEIVED CONTRAST 20 ML VIAL IV SCH; +IOHEXOL 350 MG/ML 100 ML (OMNIPAQUE 350) VIAL IV ONE; +LETR2.5T5 PO; -LETR2.5T6 PO; +NS 100 ML (IVPB) BAG IV ONE
--- NOTE | 2019-12-25 16:00 | Diagnostic Imaging Report ---
PROCEDURE: CT neck soft tissue with contrast. TECHNIQUE: Multiple contiguous axial images were obtained through the neck after the administration of contrast. Auto Exposure Controls were utilized during the CT exam to meet ALARA standards for radiation dose reduction. INDICATION: Lymphadenopathy. Lump at the base of left neck. History of breast cancer. COMPARISON: No comparison of the neck available. Correlation made with a prior PET scan from January 12, 2014. FINDINGS: The visualized intracranial contents demonstrate no evidence of abnormal intracranial enhancement or mass effect. The mastoid air cells appear clear. Middle ears are clear. Paranasal sinuses appear clear. The orbital contents are unremarkable. The posterior nasopharynx and oropharynx appear appropriately symmetric. There is no displacement of the parapharyngeal fat planes. There is no evidence of an abnormal process within the prevertebral or retropharyngeal space. There is no thickening of the epiglottis. The vocal folds appear symmetric. Infraglottic trachea unremarkable. The submandibular and parotid glands are unremarkable. The thyroid appears normal. The vascular structures of the neck demonstrate no significant stenosis on this nondedicated exam. There are scattered small cervical chain lymph nodes demonstrated throughout the neck but none which appear pathologically enlarged by CT criteria. A metallic marker was placed at the site of the patient's reported palpable abnormality. This overlies a external jugular vein and the left sternocleidomastoid but there is no underlying mass lesion, fluid collection or enlarged lymph node. The largest measurable lymph node within the neck is a left level V posterior triangle lymph node which has a short axis measurement of 8 mm. The lung apices appear clear. There are surgical clips within the left axilla from prior axillary dissection. There are mild degenerative endplate changes present within the cervical spine but no findings of a suspicious lytic or blastic lesion. IMPRESSION: 1. Small scattered cervical chain lymph nodes within the neck with the largest at level V posteriorly on the left measuring 8 mm in short axis. 2. No underlying mass or enlarged lymph node is present deep to the metallic marker placed with the patient's assistance at the anterior inferior left neck. 3. Aerodigestive tract appears appropriately symmetric. 4. Prior left axillary dissection. 5. No suspicious osseous lesions. Dictated by: Dictated on workstation # [id number]
== END ==
LOC: RAD 12:34
PROVIDERS: ATTEND Internal Medicine Hematology & Oncology
DX: R59.1 Generalized enlarged lymph nodes (principal); C50.412 Malignant neoplasm of upper-outer quadrant of left female breast
CPT/HCPCS: 70491

== ENCOUNTER → 2020-06-23 | Outpatient (CLI) | payer MEDICARE ==
[~2020-06-23] MED LIST changes: -CATHETER FLUSH 10 ML SYR IV PRN; -HOLD METFORMIN - RECEIVED CONTRAST 20 ML VIAL IV SCH; -IOHEXOL 350 MG/ML 100 ML (OMNIPAQUE 350) VIAL IV ONE; -LETR2.5T5 PO; +LETR2.5T6 PO; -NS 100 ML (IVPB) BAG IV ONE
[2020-06-23 10:36] LABS: CARBON DIOXIDE 26 MMOL/L (21-32); CHLORIDE 106 MMOL/L (98-107); CREATININE SERUM 0.87 MG/DL (0.60-1.30); POTASSIUM 4.1 MMOL/L (3.6-5.0); SODIUM 141 MMOL/L (135-145)
[2020-06-23 10:37] LABS: ALANINE AMINOTRANSFERASE 9 U/L (0-55); ALKALINE PHOSPHATASE 120 U/L (40-136); BILIRUBIN,TOTAL 0.4 MG/DL (0.1-1.0); BUN/CREATININE RATIO 18; CHOLESTEROL 200 MG/DL (< 200); GFR ESTIMATED > 60; GLUCOSE 96 MG/DL (70-105); HDL CHOLESTEROL 41 MG/DL (40-60); TOTAL PROTEIN 7.4 GM/DL (6.4-8.2); TRIGLYCERIDES 110 MG/DL (<150); VLDL CHOLESTEROL 22 MG/DL (5-40)
== END ==
LOC: CARD 09:19
PROVIDERS: ATTEND Physician Assistant
DX: I25.10 Atherosclerotic heart disease of native coronary artery without angina pectoris (principal); E78.5 Hyperlipidemia, unspecified; I50.9 Heart failure, unspecified
CPT/HCPCS: 36415; 80053; 80061; 93306

== ENCOUNTER → 2020-06-29 | Outpatient (CLI) | payer MEDICARE ==
[~2020-06-29] VITALS: Ht 163 cm; Wt 108.0 kg
[~2020-06-29] MED LIST changes: +CATHETER FLUSH 10 ML SYR IV PRN; +REGADENOSON 0.4 MG/5 ML SYR (LEXISCAN) IV ONE
[2020-06-29 13:00] VITALS: BP 142/80
--- NOTE | 2020-06-29 14:54 | Cardiology Stress Test Report ---
Stress Test Report Date of Procedure/Referring: Date of Procedure: Jun 29, 2020 Rand Galvin Admitting Physician Laila Clarke MD Indications: CHF Baseline Heart Rate: 63 Baseline Blood Pressure: Blood Pressure Systolic: 142 Blood Pressure Diastolic: 80 Baseline Vitals Vital Signs Date Time Temp Pulse Resp B/P (MAP) Pulse Ox O2 Delivery O2 Flow Rate FiO2 06/29/20 13:00 97 18 142/80 (100) 97 Room Air Baseline EKG: Baseline EKG: normal sinus rhythm Summary After explaining the procedure to the patient, she signed a consent and then brought to the stress nuclear laboratory. Patient received 0.4 mg Lexiscan for stress test, ECG, heart rate and blood pressure were monitored continuously. Resting and stress dose of radio tracer were injected, imaging was acquired and reviewed in short axis, horizontal long axis and vertical long axis views. TID: 1.03 SSS: 1 SDS: 1 EF: 56 1. Patient tolerated Lexiscan well 2. No significant ischemia or infarction on SPECT images 3. Normal left ventricular size, EF 56 percent ADILENE PANDYA MD Jun 29, 2020 14:54
== END ==
LOC: CARD 12:00
PROVIDERS: ATTEND Physician Assistant
DX: I25.10 Atherosclerotic heart disease of native coronary artery without angina pectoris (principal); I50.9 Heart failure, unspecified; E78.5 Hyperlipidemia, unspecified
CPT/HCPCS: 78452; 93017; A9502

== ENCOUNTER 2020-12-22 08:14 | Outpatient (RCR) | payer MEDICARE ==
[~2020-12-22 08:14] MED LIST changes: -CATHETER FLUSH 10 ML SYR IV PRN; +ENLP2.5T PO; -REGADENOSON 0.4 MG/5 ML SYR (LEXISCAN) IV ONE
== END 2021-01-11 09:30 | disposition home or self-care (01) ==
PROVIDERS: ATTEND Orthopaedic Surgery Sports Medicine
DX: M75.01 Adhesive capsulitis of right shoulder (principal); Z90.13 Acquired absence of bilateral breasts and nipples; Z98.82 Breast implant status; Z90.710 Acquired absence of both cervix and uterus; Z98.890 Other specified postprocedural states

== ENCOUNTER → 2020-12-26 | Outpatient (CLI) | payer MEDICARE ==
[2019-12-18 11:41] LABS: BASOPHILS % (AUTO) 0 % (0-10); EOSINOPHILS # (AUTO) 0.2 10^3/uL (0.0-0.3); EOSINOPHILS % (AUTO) 3 % (0-10); HEMATOCRIT 39 % (35-52); HEMOGLOBIN 12.6 G/DL (11.5-16.0); LYMPHOCYTES # (AUTO) 2.1 X 10^3 (1.0-4.0); LYMPHOCYTES % (AUTO) 33 % (12-44); MEAN CORPUSCULAR HEMOGLOBIN 29 PG (25-34); MEAN CORPUSCULAR HGB CONC 32 G/DL (32-36); MEAN CORPUSCULAR VOLUME 91 FL (80-99); MEAN PLATELET VOLUME 9.3 FL (7.4-10.4); MONOCYTES # (AUTO) 0.3 X 10^3 (0.0-1.0); MONOCYTES % (AUTO) 6 % (0-12); NEUTROPHILS # (AUTO) 3.7 X 10^3 (1.8-7.8); NEUTROPHILS % (AUTO) 59 % (42-75); PLATELET COUNT 274 10^3/uL (130-400); WHITE BLOOD COUNT 6.2 10^3/uL (4.3-11.0)
[2019-12-18 12:02] LABS: ALANINE AMINOTRANSFERASE 14 U/L (0-55); ALBUMIN 4.1 GM/DL (3.2-4.5); ALKALINE PHOSPHATASE 126 U/L (40-136); BILIRUBIN,TOTAL 0.3 MG/DL (0.1-1.0); BUN/CREATININE RATIO 12; CALCIUM 9.4 MG/DL (8.5-10.1); CARBON DIOXIDE 25 MMOL/L (21-32); CHLORIDE 106 MMOL/L (98-107); GFR ESTIMATED > 60; GLUCOSE 95 MG/DL (70-105); SODIUM 140 MMOL/L (135-145); TOTAL PROTEIN 7.4 GM/DL (6.4-8.2)
[2020-12-26 14:33] LABS: BASOPHILS % (AUTO) 0 % (0-10); EOSINOPHILS # (AUTO) 0.1 10^3/uL (0.0-0.3); EOSINOPHILS % (AUTO) 2 % (0-10); HEMATOCRIT 38 % (35-52); LYMPHOCYTES # (AUTO) 2.2 10^3/uL (1.0-4.0); LYMPHOCYTES % (AUTO) 32 % (12-44); MEAN CORPUSCULAR HEMOGLOBIN 29 pg (25-34); MEAN CORPUSCULAR HGB CONC 32 g/dL (32-36); MEAN CORPUSCULAR VOLUME 92 fL (80-99); MEAN PLATELET VOLUME 9.4 fL (9.0-12.2); MONOCYTES # (AUTO) 0.4 10^3/uL (0.0-1.0); MONOCYTES % (AUTO) 6 % (0-12); NEUTROPHILS # (AUTO) 4.1 10^3/uL (1.8-7.8); NEUTROPHILS % (AUTO) 60 % (42-75); PLATELET COUNT 250 10^3/uL (130-400); WHITE BLOOD COUNT 6.9 10^3/uL (4.3-11.0)
[2020-12-26 14:51] LABS: ALANINE AMINOTRANSFERASE 11 U/L (0-55); ALBUMIN 3.9 GM/DL (3.2-4.5); ALKALINE PHOSPHATASE 107 U/L (40-136); BILIRUBIN,TOTAL 0.3 MG/DL (0.1-1.0); BUN/CREATININE RATIO 19; CALCIUM 9.2 MG/DL (8.5-10.1); CARBON DIOXIDE 28 MMOL/L (21-32); CHLORIDE 106 MMOL/L (98-107); GFR ESTIMATED > 60; GLUCOSE 94 MG/DL (70-105); POTASSIUM 3.6 MMOL/L (3.6-5.0); SODIUM 140 MMOL/L (135-145); TOTAL PROTEIN 7.1 GM/DL (6.4-8.2)
== END ==
LOC: ONC 14:10
PROVIDERS: ATTEND Internal Medicine Hematology & Oncology
DX: C50.412 Malignant neoplasm of upper-outer quadrant of left female breast (principal); I25.10 Atherosclerotic heart disease of native coronary artery without angina pectoris; E66.01 Morbid (severe) obesity due to excess calories; M54.2 Cervicalgia; E78.5 Hyperlipidemia, unspecified; K21.9 Gastro-esophageal reflux disease without esophagitis; I50.22 Chronic systolic (congestive) heart failure; F41.9 Anxiety disorder, unspecified; M79.601 Pain in right arm; M85.80 Other specified disorders of bone density and structure, unspecified site; Z90.13 Acquired absence of bilateral breasts and nipples; Z92.3 Personal history of irradiation
CPT/HCPCS: 80053; 85025; G0463; 99213

== ENCOUNTER → 2020-12-30 | Outpatient (CLI) | payer MEDICARE ==
[~2020-12-30] MED LIST changes: +CATHETER FLUSH 10 ML SYR IV PRN; +HOLD METFORMIN - RECEIVED CONTRAST 20 ML VIAL IV SCH; +IOHEXOL 350 MG/ML 100 ML (OMNIPAQUE 350) VIAL IV ONE; +NS 100 ML (IVPB) BAG IV ONE
--- NOTE | 2020-12-30 10:31 | Diagnostic Imaging Report ---
PROCEDURE: CT chest with contrast only. TECHNIQUE: Multiple contiguous axial images were obtained through the chest after administration of intravenous contrast. Auto Exposure Controls were utilized during the CT exam to meet ALARA standards for radiation dose reduction. DATE: December 30, 2020. COMPARISON: April 03, 2018 chest radiograph. PET/CT January 12, 2014. Nuclear medicine bone scan November 15, 2016. INDICATION: 55-year-old female, history of breast cancer. Pain in the right arm and axilla. Decreased range of motion. FINDINGS: There is a 2 mm calcified left lower lobe granuloma on axial image 53. There is no noncalcified pulmonary nodule. There is no lung mass. There is very mild dependent atelectasis in the right and left lower lobes. There is a mild focal area of atelectasis in the right upper lobe and also in the left upper lobe. There is no additional focal airspace consolidation. There is no pneumothorax. There is no pleural effusion. The central airways are patent. There is no identified pulmonary embolus. The heart is not enlarged. There is no pericardial effusion. There is no identified abnormally enlarged mediastinal, hilar, or axillary lymph node specifically meeting CT size criteria for adenopathy. There are surgical clips in both the right and left axilla is well as at the posterior aspects of both breasts. There is a small hiatal hernia. There is mixed lucency and sclerosis in the left fifth rib anteriorly and laterally. There is no additional identified bone lesion. IMPRESSION: CT CHEST. 1. Mixed lucency and sclerosis in the left fifth rib anteriorly and laterally. This likely relates to a bone metastasis. This is new since January 12, 2014 PET/CT. 2. No abnormally enlarged axillary lymph node, mediastinal lymph node, or hilar lymph node to suggest metastatic essie disease. 3. No concerning pulmonary nodule or lung mass. Dictated by: Dictated on workstation # [id number]
== END ==
LOC: RAD 09:15
PROVIDERS: ATTEND Internal Medicine Hematology & Oncology
DX: C50.419 Malignant neoplasm of upper-outer quadrant of unspecified female breast (principal); M79.601 Pain in right arm; R29.898 Other symptoms and signs involving the musculoskeletal system
CPT/HCPCS: 71260

== ENCOUNTER → 2021-01-02 | Outpatient (CLI) | payer MEDICARE ==
[~2021-01-02] MED LIST changes: -CATHETER FLUSH 10 ML SYR IV PRN; -HOLD METFORMIN - RECEIVED CONTRAST 20 ML VIAL IV SCH; -IOHEXOL 350 MG/ML 100 ML (OMNIPAQUE 350) VIAL IV ONE; -NS 100 ML (IVPB) BAG IV ONE
== END ==
LOC: ONC 11:08
PROVIDERS: ATTEND Internal Medicine Hematology & Oncology
DX: C50.412 Malignant neoplasm of upper-outer quadrant of left female breast (principal); M85.80 Other specified disorders of bone density and structure, unspecified site; E78.5 Hyperlipidemia, unspecified; Z78.0 Asymptomatic menopausal state; M54.2 Cervicalgia; Z90.12 Acquired absence of left breast and nipple; Z90.11 Acquired absence of right breast and nipple
CPT/HCPCS: 99213

== ENCOUNTER → 2021-01-10 | Outpatient (CLI) | payer MEDICARE ==
[2021-01-10 11:01] LABS: ALBUMIN 3.9 GM/DL (3.2-4.5); BILIRUBIN,TOTAL 0.3 MG/DL (0.1-1.0); CALCIUM 8.7 MG/DL (8.5-10.1); CREATININE SERUM 0.96 MG/DL (0.60-1.30); POTASSIUM 4.5 MMOL/L (3.6-5.0); TOTAL PROTEIN 6.7 GM/DL (6.4-8.2)
== END ==
LOC: LAB 10:30
PROVIDERS: ATTEND Physician Assistant
DX: E78.2 Mixed hyperlipidemia (principal)
CPT/HCPCS: 36415; 80053

== ENCOUNTER → 2021-01-10 | Outpatient (CLI) | payer MEDICARE ==
--- NOTE | 2021-01-10 15:02 | Diagnostic Imaging Report ---
INDICATION: Malignant neoplasm of the breast on the left. Study is performed for subsequent restaging. Serum blood glucose level at the time of injection was 101 mg/dL. TECHNIQUE: The patient was administered 14.2 mCi F18-FDG intravenously in the right hand and PET imaging was performed from the top of the skull to mid thighs. Noncontrast CT was also performed for attenuation correction and anatomic correlation. COMPARISON is made with prior PET/CT study from 01/12/[address] chest from 12/30/2020. There is symmetric activity throughout the brain. Soft tissues of the neck demonstrate a normal size lymph node in the left jugulodigastric region with an SUV max of approximately 5. A left-sided posterior cervical lymph node demonstrates SUV max of 3.4. This is also borderline in size. No other suspicious abnormality in the soft tissues of the neck is identified. No mediastinal or hilar hypermetabolism is identified. No pulmonary parenchymal hypermetabolism is identified. The area of sclerosis involving the anterior left 5th rib on recent CT chest does not show hypermetabolism. Abdomen and pelvis again demonstrate physiologic activity throughout the gastrointestinal and genitourinary tracts. No suspicious hypermetabolic focus is identified. The osseous structures are unremarkable. IMPRESSION: Borderline activity within left-sided normal-sized cervical lymph nodes, indeterminate. No other suspicious areas of hypermetabolism are identified. Dictated by: Dictated on workstation # [id number]
== END ==
LOC: RAD 10:27
PROVIDERS: ATTEND Internal Medicine Hematology & Oncology
DX: C50.412 Malignant neoplasm of upper-outer quadrant of left female breast (principal); R93.89 Abnormal findings on diagnostic imaging of other specified body structures
CPT/HCPCS: 78815; A9552

== ENCOUNTER → 2021-01-12 | Outpatient (CLI) | payer MEDICARE | LOC: ONC 13:10 | PROVIDERS: ATTEND Internal Medicine Hematology & Oncology | DX: C50.912 Malignant neoplasm of unspecified site of left female breast (principal); M85.88 Other specified disorders of bone density and structure, other site; M54.2 Cervicalgia; K44.9 Diaphragmatic hernia without obstruction or gangrene; M89.8X8 Other specified disorders of bone, other site; Z85.3 Personal history of malignant neoplasm of breast; Z78.0 Asymptomatic menopausal state | CPT/HCPCS: 99213 ==

== ENCOUNTER → 2021-04-19 | Outpatient (CLI) | payer MEDICARE ==
[2021-04-19 12:44] LABS: CHOLESTEROL 104 MG/DL (< 200); HDL CHOLESTEROL 39 MG/DL (40-60); TRIGLYCERIDES 52 MG/DL (<150); VLDL CHOLESTEROL 10 MG/DL (5-40)
== END ==
LOC: LAB 12:05
PROVIDERS: ATTEND Physician Assistant
DX: E78.2 Mixed hyperlipidemia (principal)
CPT/HCPCS: 36415; 80061

== ENCOUNTER 2021-06-27 09:37 | Outpatient (RCR) | payer MEDICARE ==
[2021-04-04 10:29] LABS: BASOPHILS % (AUTO) 1 % (0-10); EOSINOPHILS # (AUTO) 0.1 10^3/uL (0.0-0.3); EOSINOPHILS % (AUTO) 1 % (0-10); HEMATOCRIT 40 % (35-52); HEMOGLOBIN 12.5 g/dL (11.5-16.0); LYMPHOCYTES % (AUTO) 31 % (12-44); MEAN CORPUSCULAR HEMOGLOBIN 29 pg (25-34); MEAN CORPUSCULAR HGB CONC 32 g/dL (32-36); MEAN CORPUSCULAR VOLUME 93 fL (80-99); MEAN PLATELET VOLUME 10.6 fL (9.0-12.2); MONOCYTES # (AUTO) 0.4 10^3/uL (0.0-1.0); MONOCYTES % (AUTO) 6 % (0-12); NEUTROPHILS # (AUTO) 3.8 10^3/uL (1.8-7.8); NEUTROPHILS % (AUTO) 61 % (42-75); PLATELET COUNT 246 10^3/uL (130-400); WHITE BLOOD COUNT 6.3 10^3/uL (4.3-11.0)
[2021-04-04 10:50] LABS: ALANINE AMINOTRANSFERASE 13 U/L (0-55); ALBUMIN 3.9 GM/DL (3.2-4.5); ALKALINE PHOSPHATASE 101 U/L (40-136); BILIRUBIN,TOTAL 0.3 MG/DL (0.1-1.0); BUN/CREATININE RATIO 14; CALCIUM 9.4 MG/DL (8.5-10.1); CARBON DIOXIDE 27 MMOL/L (21-32); CHLORIDE 107 MMOL/L (98-107); CREATININE SERUM 0.81 MG/DL (0.60-1.30); GFR ESTIMATED > 60; GLUCOSE 75 MG/DL (70-105); POTASSIUM 3.6 MMOL/L (3.6-5.0); SODIUM 141 MMOL/L (135-145); TOTAL PROTEIN 7.1 GM/DL (6.4-8.2)
[2021-06-27 09:48] LABS: BASOPHILS % (AUTO) 0 % (0-10); EOSINOPHILS # (AUTO) 0.2 10^3/uL (0.0-0.3); EOSINOPHILS % (AUTO) 3 % (0-10); HEMATOCRIT 37 % (35-52); HEMOGLOBIN 11.6 g/dL (11.5-16.0); LYMPHOCYTES # (AUTO) 1.7 10^3/uL (1.0-4.0); LYMPHOCYTES % (AUTO) 30 % (12-44); MEAN CORPUSCULAR HEMOGLOBIN 30 pg (25-34); MEAN CORPUSCULAR HGB CONC 32 g/dL (32-36); MEAN CORPUSCULAR VOLUME 96 fL (80-99); MEAN PLATELET VOLUME 10.1 fL (9.0-12.2); MONOCYTES # (AUTO) 0.3 10^3/uL (0.0-1.0); MONOCYTES % (AUTO) 6 % (0-12); NEUTROPHILS # (AUTO) 3.5 10^3/uL (1.8-7.8); NEUTROPHILS % (AUTO) 61 % (42-75); PLATELET COUNT 223 10^3/uL (130-400); WHITE BLOOD COUNT 5.7 10^3/uL (4.3-11.0)
[2021-06-27 10:15] LABS: ALBUMIN 3.6 GM/DL (3.2-4.5); BILIRUBIN,TOTAL 0.3 MG/DL (0.1-1.0); CREATININE SERUM 0.81 MG/DL (0.60-1.30); POTASSIUM 3.6 MMOL/L (3.6-5.0); TOTAL PROTEIN 6.7 GM/DL (6.4-8.2)
== END 2021-07-03 | disposition home or self-care (01) ==
LOC: ONC 09:37
PROVIDERS: ATTEND Internal Medicine Hematology & Oncology
DX: C50.412 Malignant neoplasm of upper-outer quadrant of left female breast (principal); M85.80 Other specified disorders of bone density and structure, unspecified site; I11.0 Hypertensive heart disease with heart failure; I50.22 Chronic systolic (congestive) heart failure; I25.10 Atherosclerotic heart disease of native coronary artery without angina pectoris; K21.9 Gastro-esophageal reflux disease without esophagitis; E78.5 Hyperlipidemia, unspecified; E66.01 Morbid (severe) obesity due to excess calories; F41.9 Anxiety disorder, unspecified; Z90.13 Acquired absence of bilateral breasts and nipples; Z98.890 Other specified postprocedural states; Z78.0 Asymptomatic menopausal state; Z79.811 Long term (current) use of aromatase inhibitors; Z79.899 Other long term (current) drug therapy; Z17.0 Estrogen receptor positive status [ER+]; Z68.39 Body mass index [BMI] 39.0-39.9, adult
CPT/HCPCS: 80053; 85025; G0463; 99213

== ENCOUNTER → 2021-07-04 | Outpatient (CLI) | payer MEDICARE ==
--- NOTE | 2021-07-04 13:10 | Diagnostic Imaging Report ---
INDICATION: Malignant neoplasm of the upper-outer quadrant of the left breast. Study is performed for subsequent restaging. TECHNIQUE: Serum blood glucose level at the time of injection was 110 mg/dL. Patient was administered 11.9 mCi F-18 FDG intravenously, and PET imaging was performed from top of the skull to the mid-thighs. Noncontrast CT was also performed for attenuation correction and anatomic correlation. COMPARISON: Correlation is made with prior PET/CT study from 01/10/2021. FINDINGS: There is symmetric activity throughout the brain. Physiologic activity within the soft tissues of the neck is noted. Previously noted borderline hypermetabolic left cervical lymph nodes are no longer appreciated. No mediastinal or hilar hypermetabolism is seen. No pulmonary parenchymal hypermetabolism is identified. There is normal physiologic activity throughout the gastrointestinal and genitourinary tracts of the abdomen and pelvis. No suspicious regions of hypermetabolism are identified. IMPRESSION: Unremarkable PET/CT study. No suspicious regions of hypermetabolism are identified. Dictated by: Dictated on workstation # [id number]
== END ==
LOC: RAD 08:15
PROVIDERS: ATTEND Internal Medicine Hematology & Oncology
DX: C50.412 Malignant neoplasm of upper-outer quadrant of left female breast (principal); R93.89 Abnormal findings on diagnostic imaging of other specified body structures
CPT/HCPCS: 78815; A9552

== ENCOUNTER 2021-07-06 09:29 | Outpatient (RCR) | payer MEDICARE | END 2021-10-04 | disposition home or self-care (01) | LOC: ONC 09:29 | PROVIDERS: ATTEND Internal Medicine Hematology & Oncology | DX: C50.912 Malignant neoplasm of unspecified site of left female breast (principal); I50.22 Chronic systolic (congestive) heart failure; I25.10 Atherosclerotic heart disease of native coronary artery without angina pectoris; E78.5 Hyperlipidemia, unspecified; F41.9 Anxiety disorder, unspecified; I65.23 Occlusion and stenosis of bilateral carotid arteries; I10 Essential (primary) hypertension; E66.01 Morbid (severe) obesity due to excess calories; Z90.13 Acquired absence of bilateral breasts and nipples; Z98.890 Other specified postprocedural states; Z78.0 Asymptomatic menopausal state | CPT/HCPCS: 99213 ==

== ENCOUNTER → 2021-07-17 | Outpatient (CLI) | payer MEDICARE | LOC: CARD 10:40 | PROVIDERS: ATTEND Internal Medicine Cardiovascular Disease | DX: I10 Essential (primary) hypertension (principal); I25.10 Atherosclerotic heart disease of native coronary artery without angina pectoris | CPT/HCPCS: 93306 ==

== ENCOUNTER 2021-12-21 09:30 | Outpatient (RCR) | payer MEDICARE ==
[2021-12-21 09:38] LABS: BASOPHILS % (AUTO) 1 % (0-10); EOSINOPHILS # (AUTO) 0.2 10^3/uL (0.0-0.3); EOSINOPHILS % (AUTO) 3 % (0-10); HEMATOCRIT 38 % (35-52); HEMOGLOBIN 11.8 g/dL (11.5-16.0); LYMPHOCYTES % (AUTO) 33 % (12-44); MEAN CORPUSCULAR HEMOGLOBIN 29 pg (25-34); MEAN CORPUSCULAR HGB CONC 31 g/dL (32-36); MEAN CORPUSCULAR VOLUME 93 fL (80-99); MEAN PLATELET VOLUME 9.5 fL (9.0-12.2); MONOCYTES # (AUTO) 0.4 10^3/uL (0.0-1.0); MONOCYTES % (AUTO) 6 % (0-12); NEUTROPHILS # (AUTO) 3.5 10^3/uL (1.8-7.8); NEUTROPHILS % (AUTO) 58 % (42-75); PLATELET COUNT 276 10^3/uL (130-400); WHITE BLOOD COUNT 6.1 10^3/uL (4.3-11.0)
[2021-12-21 10:16] LABS: ALBUMIN 3.8 GM/DL (3.2-4.5); BILIRUBIN,TOTAL 0.3 MG/DL (0.1-1.0); CALCIUM 8.6 MG/DL (8.5-10.1); CREATININE SERUM 0.96 MG/DL (0.60-1.30); POTASSIUM 3.7 MMOL/L (3.6-5.0); TOTAL PROTEIN 7.1 GM/DL (6.4-8.2)
== END 2022-01-01 | disposition home or self-care (01) ==
LOC: ONC 09:30
PROVIDERS: ATTEND Internal Medicine Hematology & Oncology
DX: Z45.2 Encounter for adjustment and management of vascular access device (principal); C50.412 Malignant neoplasm of upper-outer quadrant of left female breast; I50.22 Chronic systolic (congestive) heart failure; I25.10 Atherosclerotic heart disease of native coronary artery without angina pectoris; E78.5 Hyperlipidemia, unspecified; F41.9 Anxiety disorder, unspecified; I65.23 Occlusion and stenosis of bilateral carotid arteries; E66.01 Morbid (severe) obesity due to excess calories; K21.9 Gastro-esophageal reflux disease without esophagitis; M85.80 Other specified disorders of bone density and structure, unspecified site; Z90.13 Acquired absence of bilateral breasts and nipples; Z98.890 Other specified postprocedural states; Z78.0 Asymptomatic menopausal state; Z90.710 Acquired absence of both cervix and uterus
CPT/HCPCS: 36415; 80053; 85025

== ENCOUNTER → 2021-12-26 | Outpatient (CLI) | payer MEDICARE ==
--- NOTE | 2021-12-26 16:55 | Diagnostic Imaging Report ---
INDICATION: Postmenopausal screening COMPARISON: 12/08/2019 FINDINGS: AP Spine L1-L4: [BMD (g/cm2): 0.984] [T-Score: -1.8] [Z-Score: -2.0] [BMD Previous: 1.007] [BMD % Change: -2.3] LT Hip Neck: [BMD (g/cm2): 0.824] [T-Score: -1.5] [Z-Score: -1.2] LT Hip Total: [BMD (g/cm2):0.780] [T-Score:-1.8] [Z-Score: -1.9] [BMD Previous: 0.748] [BMD % Change: 4.3] RT Hip Neck: [BMD (g/cm2):0.758] [T-Score:-2.0] [Z-Score:-1.7] RT Hip Total: [BMD (g/cm2):0.729] [T-score:-2.2] [Z-Score:-2.3] [BMD Previous:0.720] [BMD % Change:1.3] *Indicates significant change from prior examination based on 95% confidence level. World Health Organization criteria for BMD interpretation classify patients as Normal (T-score at or above -1.0), Osteopenic (T-score between -1.0 and -2.5) or Osteoporotic (T-score at or below -2.5). LIMITATIONS AND MODIFICATION: None. FRACTURE RISK (FRAX SCORE): The ten year probability of (%): Major Osteoporotic Fracture: [7.6] Hip Fracture: [0.9] IMPRESSION: 1. Osteopenia (Low bone mass). 2. No significant change in bone mineral density since prior examination. 3. See below National Osteoporosis Foundation guidelines on when to potentially initiate pharmacologic therapy. Based on the National Osteoporosis Foundation Guidelines, pharmacologic treatment should be initiated in any of the following, unless clinical conditions suggest otherwise: * Any patient with prior fragility fracture of the hip or vertebrae. A spine fracture indicates 5X risk for subsequent spine fracture and 2X risk for subsequent hip fracture. * Osteoporosis (T-score <-2.5). * Postmenopausal women and men age 50 and older with low bone mass/osteopenia (T-score between -1.0 and -2.5) by DXA and 10-year major osteoporotic fracture greater than 20% or a 10-year probability of hip fracture greater than 3%. These fracture risks are supplied above in the FRAX score, if applicable. * Clinician judgement and/or patient preferences may indicate treatment for people with 10-year fracture probabilities above or below these levels. Dictated by: Dictated on workstation # [id number]
== END ==
LOC: RAD 12:30
PROVIDERS: ATTEND Internal Medicine Hematology & Oncology
DX: Z13.820 Encounter for screening for osteoporosis (principal); M85.89 Other specified disorders of bone density and structure, multiple sites; Z78.0 Asymptomatic menopausal state
CPT/HCPCS: 77080

== ENCOUNTER → 2022-07-02 | Outpatient (CLI) | payer MEDICARE ==
--- NOTE | 2022-07-02 15:28 | Diagnostic Imaging Report ---
INDICATION: Malignant neoplasm of the female breast, restaging. Serum blood glucose level at the time of injection was 126 mg/dL. The patient was administered 14 mCi F-18 FDG intravenously in the right hand and PET imaging was performed from the top of the skull to mid thighs. Noncontrast CT was also performed for attenuation correction and anatomic correlation. CORRELATION is made with prior PET/CT study from 07/04/2021. There is symmetric activity throughout the brain. There is a left posterior cervical lymph node showing slightly increased uptake with an SUV max of 3.9. This is indeterminant. No mediastinal or hilar hypermetabolism is seen. No pulmonary parenchymal hypermetabolism is identified. The abdomen and pelvis demonstrates physiologic activity throughout the gastrointestinal and genitourinary tracts. No suspicious region of hypermetabolism is identified. IMPRESSION: Very mild uptake involving a left posterior cervical lymph node, indeterminate. This study is otherwise unremarkable. Dictated by: Dictated on workstation # [id number]
== END ==
LOC: RAD 07:46
PROVIDERS: ATTEND Internal Medicine Hematology & Oncology
DX: C50.912 Malignant neoplasm of unspecified site of left female breast (principal)
CPT/HCPCS: 78815; A9552

== ENCOUNTER 2022-07-05 10:36 | Outpatient (RCR) | payer MEDICARE ==
[2022-07-05 10:57] LABS: BASOPHILS % (AUTO) 1 % (0-10); EOSINOPHILS # (AUTO) 0.2 10^3/uL (0.0-0.3); EOSINOPHILS % (AUTO) 4 % (0-10); HEMATOCRIT 38 % (35-52); LYMPHOCYTES % (AUTO) 38 % (12-44); MEAN CORPUSCULAR HEMOGLOBIN 30 pg (25-34); MEAN CORPUSCULAR HGB CONC 32 g/dL (32-36); MEAN CORPUSCULAR VOLUME 94 fL (80-99); MEAN PLATELET VOLUME 9.6 fL (9.0-12.2); MONOCYTES # (AUTO) 0.3 10^3/uL (0.0-1.0); MONOCYTES % (AUTO) 6 % (0-12); NEUTROPHILS # (AUTO) 2.7 10^3/uL (1.8-7.8); NEUTROPHILS % (AUTO) 52 % (42-75); PLATELET COUNT 280 10^3/uL (130-400); WHITE BLOOD COUNT 5.3 10^3/uL (4.3-11.0)
[2022-07-05 11:19] LABS: ALBUMIN 3.8 GM/DL (3.2-4.5); BILIRUBIN,TOTAL 0.3 MG/DL (0.1-1.0); CREATININE SERUM 0.97 MG/DL (0.60-1.30); POTASSIUM 3.9 MMOL/L (3.6-5.0); TOTAL PROTEIN 7.2 GM/DL (6.4-8.2)
== END 2022-08-03 | disposition home or self-care (01) ==
LOC: ONC 10:36
PROVIDERS: ATTEND Internal Medicine Hematology & Oncology
DX: C50.412 Malignant neoplasm of upper-outer quadrant of left female breast (principal); I50.22 Chronic systolic (congestive) heart failure; I25.10 Atherosclerotic heart disease of native coronary artery without angina pectoris; E78.5 Hyperlipidemia, unspecified; F41.9 Anxiety disorder, unspecified; E66.01 Morbid (severe) obesity due to excess calories; K21.9 Gastro-esophageal reflux disease without esophagitis; Z90.13 Acquired absence of bilateral breasts and nipples; Z98.890 Other specified postprocedural states; Z78.0 Asymptomatic menopausal state; Z90.710 Acquired absence of both cervix and uterus
CPT/HCPCS: 80053; 85025; G0463; 36415; 99213

== ENCOUNTER 2023-01-03 10:18 | Outpatient (RCR) | payer MEDICARE ==
[2023-01-03 10:40] LABS: BASOPHILS % (AUTO) 1 % (0-10); EOSINOPHILS # (AUTO) 0.2 10^3/uL (0.0-0.3); EOSINOPHILS % (AUTO) 3 % (0-10); HEMATOCRIT 37 % (35-52); HEMOGLOBIN 11.9 g/dL (11.5-16.0); LYMPHOCYTES # (AUTO) 1.8 10^3/uL (1.0-4.0); LYMPHOCYTES % (AUTO) 32 % (12-44); MEAN CORPUSCULAR HEMOGLOBIN 29 pg (25-34); MEAN CORPUSCULAR HGB CONC 32 g/dL (32-36); MEAN CORPUSCULAR VOLUME 91 fL (80-99); MEAN PLATELET VOLUME 9.3 fL (9.0-12.2); MONOCYTES # (AUTO) 0.3 10^3/uL (0.0-1.0); MONOCYTES % (AUTO) 6 % (0-12); NEUTROPHILS # (AUTO) 3.3 10^3/uL (1.8-7.8); NEUTROPHILS % (AUTO) 59 % (42-75); PLATELET COUNT 273 10^3/uL (130-400); WHITE BLOOD COUNT 5.5 10^3/uL (4.3-11.0)
[2023-01-03 11:00] LABS: BILIRUBIN,TOTAL 0.3 MG/DL (0.1-1.0); CALCIUM 9.9 MG/DL (8.5-10.1); CREATININE SERUM 0.9 MG/DL (0.60-1.30); POTASSIUM 4.1 MMOL/L (3.6-5.0); TOTAL PROTEIN 7.4 GM/DL (6.4-8.2)
== END 2023-02-01 | disposition home or self-care (01) ==
LOC: ONC 10:18
PROVIDERS: ATTEND Internal Medicine Hematology & Oncology
DX: C50.412 Malignant neoplasm of upper-outer quadrant of left female breast (principal); I50.22 Chronic systolic (congestive) heart failure; I25.10 Atherosclerotic heart disease of native coronary artery without angina pectoris; E78.5 Hyperlipidemia, unspecified; F41.9 Anxiety disorder, unspecified; E66.01 Morbid (severe) obesity due to excess calories; K21.9 Gastro-esophageal reflux disease without esophagitis; Z90.13 Acquired absence of bilateral breasts and nipples; Z98.890 Other specified postprocedural states; Z78.0 Asymptomatic menopausal state; Z90.710 Acquired absence of both cervix and uterus
CPT/HCPCS: 36415; 80053; 85025

== ENCOUNTER → 2023-03-05 | Outpatient (CLI) | payer MEDICARE | LOC: CARD 12:41 | PROVIDERS: ATTEND Physician Assistant | DX: I10 Essential (primary) hypertension (principal); I25.10 Atherosclerotic heart disease of native coronary artery without angina pectoris | CPT/HCPCS: 93306 ==

== ENCOUNTER → 2023-06-06 | Outpatient (CLI) | payer MEDICARE ==
[~2023-06-06] MED LIST changes: +HOLD METFORMIN - RECEIVED CONTRAST 20 ML VIAL IV SCH; +IOHEXOL 350 MG/ML 100 ML (OMNIPAQUE 350) VIAL IV ONE; +NS 100 ML (IVPB) BAG IV ONE
[2023-06-06 10:14] LABS: CREATININE SERUM 0.93 MG/DL (0.60-1.30)
--- NOTE | 2023-06-06 11:11 | Diagnostic Imaging Report ---
PROCEDURE: CT chest, abdomen, and pelvis with contrast. TECHNIQUE: Multiple contiguous axial images were obtained through the chest, abdomen, and pelvis after the administration of intravenous contrast. Auto Exposure Controls were utilized during the CT exam to meet ALARA standards for radiation dose reduction. INDICATION: History of breast cancer, currently on treatment. History of double mastectomy and breast reconstruction. Compared with chest CT 12/30/2020. Most recent relevant correlation is a metabolic PET CT performed 07/02/2022. CHEST: Mastectomy and breast reconstructions with fatty tissue unchanged. No chest wall mass or fluid collection. No axillary adenopathy or fluid collection. The internal mammary chains unremarkable. No pathologically enlarged hilar or mediastinal lymph nodes. No edema or pneumonia. No suspicious lung nodule. No acute chest wall pathology. A large retrocardiac hernia chronic. Large retrocardiac hiatal hernia increased. The esophagus above nondilated. Aorta nonaneurysmal. No pericardial collection. No central PE. No acute finding. ABDOMEN AND PELVIS: The ventral supraumbilical abdominal wall fatty hernia chronic. There is some postoperative distortion of the abdominal wall chronic. No acute-appearing abdominal wall pathology for viscus herniation. There is no mesenteric or retroperitoneal adenopathy. Gallbladder absent. Liver, spleen, adrenals and pancreas unremarkable. The kidneys are unobstructed. No mesenteric or retroperitoneal adenopathy. No intra or extraperitoneal hemorrhage. No ascites. No acute fluid collection. No suspicious bony pathology. No inflammatory changes. IMPRESSION: Postoperative sequelae with no findings of neoplastic recurrence to the chest, abdomen or pelvis. No acute-appearing abnormality. Dictated by: Dictated on workstation # [id number]
== END ==
LOC: RAD 09:29
PROVIDERS: ATTEND Internal Medicine Hematology & Oncology
DX: C50.419 Malignant neoplasm of upper-outer quadrant of unspecified female breast (principal); R93.89 Abnormal findings on diagnostic imaging of other specified body structures; Z98.890 Other specified postprocedural states; Z90.49 Acquired absence of other specified parts of digestive tract
CPT/HCPCS: 36415; 71260; 74177; 82565; 84520